=== PATIENT | male | born 1940 | race African-American/Black ===

== ENCOUNTER 2018-06-27 06:54 | Day surgery (SDC) | payer MEDICARE ==
[~2018-06-27 06:54] MED LIST: LACTATED RINGERS 1,000 ML IV SCH
[2018-06-27] MEDS ORDERED: VANCOMYCIN 750 MG in NACL 0.9% 250ML 250 ML IV STA (07:12)
[2018-06-27] MEDS ORDERED: PROVENTIL IH NR (07:27)
[2018-06-27] MEDS ORDERED: SUBLIMAZE IV PRN (08:01)
--- NOTE | 2018-06-27 08:01 | Anesthesia Consultation ---
Anesthesia Consult and Med Hx Date of service: 06/27/18 - Airway Anesthetic Teeth Evaluation: Poor ROM Head & Neck: Adequate Mental/Hyoid Distance: Adequate Mallampati Class: Class II Intubation Access Assessment: Probably Good (previous easy intubation with MAC 3, 7.5 ETT) - Pulmonary Exam CTA: Yes - Cardiac Exam Cardiac Exam: RRR - Pre-Operative Health Status ASA Pre-Surgery Classification: ASA3 Proposed Anesthetic Plan: General - Pulmonary Hx Smoking: Yes (FORMER QUIT 1989) Hx Asthma: Yes Home Oxygen Therapy: No - Cardiovascular System Hx Hypertension: Yes Hx Heart Attack/AMI: No - Central Nervous System Hx Seizures: No CVA: No - Gastrointestinal Hx Gastroesophageal Reflux Disease: No - Endocrine Hx Renal Disease: Yes (CKD2) Hx Liver Disease: No Hx Insulin Dependent Diabetes: Yes Hx Thyroid Disease: No - Other Systems Hx Obesity: No - Additional Comments Anesthesia Medical History Comments: No hx anesthetic complications. Chart review states home O2 use however discussion with patient (via sign language interpreter) suggests this is likely inhaler use for asthma rather than supplemental O2. SpO2 97% on room air this morning.
--- NOTE | 2018-06-27 08:01 | Anesthesia Day of Surgery ---
Anesthesia Day of Surgery - Day of Surgery Patient Examined: Yes Patient H&P Reviewed: Yes Patient is NPO: Yes
[2018-06-27] MEDS ORDERED: SUBLIMAZE ONE (08:43)
[2018-06-27] MEDS ORDERED: DIPRIVAN 10 MG/ML IV ONE (08:44)
[2018-06-27] MEDS ORDERED: VANCOMYCIN/NS 1 GM/250 ML 1 GM/250 ML BAG IV ONE (09:30)
[2018-06-27] MEDS ORDERED: ZEMURON IV ONE (10:03)
[2018-06-27] MEDS ORDERED: XYLOCAINE MPF 2% ONE (10:03)
[2018-06-27] MEDS ORDERED: DECADRON ONE (10:32)
[2018-06-27] MEDS ORDERED: XYLOCAINE CARDIAC IV ONE (10:32)
[2018-06-27] MEDS ORDERED: ZOFRAN ONE (10:32)
[2018-06-27] MEDS ORDERED: NACL 0.9% IR ONE (10:35)
[2018-06-27] MEDS ORDERED: MARCAINE-EPI/PF 0.25%-1:200,000 INFILTRATI ONE (10:35)
--- NOTE | 2018-06-27 10:39 | Discharge Summary ---
Short Stay Discharge Plan Activity: other (observe x 4 hrs then july d/c if stable and able to void. ice pack L groin x 6 hrs. scrotal support x 3 days. cl liq diet. advance to solid high fiber diet as daisy) Diet: other Wound: keep clean and dry (keep dressings dry x 5 day. no lifting over 5 lbs x 3 wks) Additional Instructions: surfak I po q am x days. aleve I po q 6-8 hrs prn for breakthrough pain Follow up with: NAIMA GUEVARA MD [Primary Care Provider] - 7 Days
--- NOTE | 2018-06-27 12:39 | Operative Report ---
PREOPERATIVE DIAGNOSIS: Left inguinal hernia. POSTOPERATIVE DIAGNOSES: Indirect left inguinal hernia as well as a direct inguinal hernia component (pantaloon hernia). PROCEDURE: Open left inguinal hernia repair with mesh. SURGEON: Juan Pagan MD ANESTHESIA: General. ESTIMATED BLOOD LOSS: Minimal. DRAINS: None. COMPLICATIONS: None. PROCEDURE IN DETAIL: The patient was taken to the operating room, prepped and draped in the usual sterile fashion. Incision was made using his landmarks in anterior superior iliac spine and the pubic tubercle. Dissection was carried down to the external oblique fascia. External oblique fascia was then transected to the external inguinal ring. The inguinal cord was then isolated with a Fleischmanns drain at the level of the pubic tubercle. Inspection of the cord revealed a fairly large indirect hernia sac. The sac was dissected free from the cord structures and high ligated with a 2-0 silk suture. The sac was then returned to the peritoneal cavity. Inspection of the floor also revealed a weekend floor. A preshaped keyhole Marlex mesh was then used to reconstruct the inguinal canal floor. The mesh was tacked to the pubic tubercle region with the tacker. Medially, the mesh was secured to the transversalis fascia. Laterally, the mesh was secured to the iliopubic tract. The area was then irrigated copiously and dried, checked for hemostasis and noted to be dry. The cord was then on laid over the mesh. All cord structures were inspected and noted to be intact including the ilioinguinal nerve. The external oblique fascia was closed over the cord with running 3-0 Vicryl suture. Subcutaneous tissues were irrigated and skin was closed with angel. A 0.5% Marcaine was infiltrated over the fascia, subcutaneous, and skin for postoperative pain relief. Ilioinguinal nerve block was also performed. The patient tolerated the procedure well and left OR in stable condition. JOB# [id number] CHEIKH/CARI
[2018-06-27 20:40] VITALS: BP 138/72
== END 2018-06-27 06:55 | disposition home or self-care (01) ==
LOC: OR 06:54
PROVIDERS: ATTEND Surgery
DX: K40.90 Unilateral inguinal hernia, without obstruction or gangrene, not specified as recurrent (principal); I12.0 Hypertensive chronic kidney disease with stage 5 chronic kidney disease or end stage renal disease; E11.22 Type 2 diabetes mellitus with diabetic chronic kidney disease; N18.2 Chronic kidney disease, stage 2 (mild); J44.9 Chronic obstructive pulmonary disease, unspecified; Z88.0 Allergy status to penicillin; Z79.84 Long term (current) use of oral hypoglycemic drugs; Z79.899 Other long term (current) drug therapy; Z87.891 Personal history of nicotine dependence; Z98.49 Cataract extraction status, unspecified eye; Z98.890 Other specified postprocedural states
CPT/HCPCS: 49505; 82962; 88302; C1781; J1100; J2001; J2405; J2704; J3010; J3370; J7050; J7120

== ENCOUNTER 2018-11-12 15:06 | Inpatient (IN) | payer MEDICARE ==
--- NOTE | 2018-11-12 15:34 | Event Note ---
ED Screening Note Date of service: 11/12/18 Time: 15:31 ED Screening Note: 77 y o male presents with sob and weakness x 2 days This initial assessment/diagnostic orders/clinical plan/treatment(s) is/are subject to change based on patients health status, clinical progression and re- assessment by fellow clinical providers in the ED. Further treatment and workup at subsequent clinical providers discretion. Patient/guardian urged not to elope from the ED as their condition may be serious if not clinically assessed and managed. Initial orders include:
[2018-11-12 16:33] LABS: Basophils % (Auto) 0.2 % (0.0-1.8); Hematocrit 43.3 % (35.5-45.6); Hemoglobin 14.2 gm/dl (11.8-15.2); Lymphocytes # (Auto) 0.8 K/mm3 (1.2-5.4); Lymphocytes % (Auto) 9.7 % (13.4-35.0); Mean Corpuscular HGB Conc 33 % (32-34); Monocytes # (Auto) 1.2 K/mm3 (0.0-0.8); Platelet Count 207 K/mm3 (140-440); Red Blood Count 6.29 M/mm3 (3.65-5.03); Red Cell Distribution Width 15.4 % (13.2-15.2)
[2018-11-12 16:35] LABS: Mean Corpuscular Volume 69 fl (84-94)
[2018-11-12 16:50] LABS: Alanine Aminotransferase 9 units/L (7-56); Albumin 4.2 g/dL (3.9-5); BUN/Creatinine Ratio 28; Blood Urea Nitrogen 31 mg/dL (9-20); Calcium 9.7 mg/dL (8.4-10.2); Hemolysis Index 1
--- NOTE | 2018-11-12 16:59 | XRay Report ---
CHEST 2 VIEWS INDICATION / CLINICAL INFORMATION: Dyspnea. COMPARISON: None available. FINDINGS: SUPPORT DEVICES: None. HEART / MEDIASTINUM: No significant abnormality. LUNGS / PLEURA: There is patchy predominantly peripheral airspace opacity in the right upper lobe. Th ere is mild prominence of the right hilum. The left lung is clear. No pleural effusion. No pneumothor ax. ADDITIONAL FINDINGS: No significant additional findings. IMPRESSION: 1. Patchy predominantly peripheral airspace opacities in the right upper lobe and mild prominence of the right hilum. While this may reflect an infectious etiology, recommend chest CT to exclude underly ing mass. Signer Name: Danielle De Oliveira MD Signed: 11/12/2018 4:55 PM Workstation Name: [id number]
[2018-11-12] MEDS ORDERED: NACL 0.9% 1000 ML IV ONE (21:25)
[2018-11-12] MEDS ORDERED: ZOFRAN IV ONE (21:27)
[2018-11-12] MEDS ORDERED: PEPCID IV ONE (21:27)
[2018-11-12] MEDS ORDERED: LEVAQUIN 750MG/150ML 750 MG/150 ML BAG IV SCH (21:28)
--- NOTE | 2018-11-12 21:35 | Emergency Department Report ---
ED General Adult HPI - General Chief complaint: Dyspnea/Respdistress Stated complaint: VOMITING/ROBIN/ASTHMA Time Seen by Provider: 11/12/18 15:30 Source: family Mode of arrival: Wheelchair Limitations: Language Barrier - History of Present Illness Initial comments: Patient is a 77-year-old [place] gentleman who has a history of COPD and uses oxygen at home diabetes and hypertension who is presenting with nausea vomiting shortness of breath. Patient's family member who is his environmental services coordinator states that for the past 3-4 days the patient has been feeling weak fatigue with a nonproductive cough. His customer professional placed him on Levaquin 3 days ago noel rachel the patient is unable to keep it down. Patient states he's had nausea vomiting anytime he tries to eat or take his medications. Patient has shortness of breath and generalized fatigue. Patient has body aches and subjective fevers. - Related Data Home Medications Medication Instructions Recorded Confirmed Last Taken AtorvaSTATin [Lipitor] 10 mg PO QHS 01/31/18 06/27/18 06/26/18 Losartan Potassium [Cozaar] 50 mg PO DAILY 01/31/18 06/27/18 06/26/18 ALBUTEROL Inhaler (OR & NICU) 2 puff IH Q6H PRN 06/25/18 06/27/18 06/26/18 [ProAir HFA Inhaler] Dorzolamide HCl 1 drop OP BID 06/25/18 06/27/18 06/26/18 Fluticasone/Vilanterol [Breo 1 puff IH QDAY 06/25/18 06/27/18 06/26/18 Ellipta 100-25 Mcg INH] Umeclidinium [place] [Incruse 1 puff IH QDAY 06/25/18 06/27/18 06/26/18 Ellipta] metFORMIN [Glucophage] 850 mg PO BID 06/25/18 06/27/18 06/26/18 Previous Rx's Medication Instructions Recorded Last Taken Type HYDROcodone/APAP 5-325 [[place] 1 - 2 each PO Q4HR PRN #30 tablet 06/27/18 Unknown Rx 5/325] Allergies Allergy/AdvReac Type Severity Reaction Status Date / Time Penicillins Allergy Unknown-over Verified 06/25/18 17:28 45 years ago ED Review of Systems ROS: Stated complaint: VOMITING/ROBIN/ASTHMA Other details as noted in HPI Comment: All other systems reviewed and negative ED Past Medical Hx - Past Medical History Hx Hypertension: Yes Hx Heart Attack/AMI: No Hx Diabetes: Yes Hx Liver Disease: No Hx Renal Disease: Yes (CKD2) Hx Seizures: No Hx Asthma: Yes Hx COPD: Yes (USES O2) - Social History Smoking Status: Never Smoker Substance Use Type: None - Medications Home Medications: Home Medications Medication Instructions Recorded Confirmed Last Taken Type AtorvaSTATin [Lipitor] 10 mg PO QHS 01/31/18 06/27/18 06/26/18 History Losartan Potassium [Cozaar] 50 mg PO DAILY 01/31/18 06/27/18 06/26/18 History ALBUTEROL Inhaler (OR & NICU) 2 puff IH Q6H PRN 06/25/18 06/27/18 06/26/18 History [ProAir HFA Inhaler] Dorzolamide HCl 1 drop OP BID 06/25/18 06/27/18 06/26/18 History Fluticasone/Vilanterol [Breo 1 puff IH QDAY 06/25/18 06/27/18 06/26/18 History Ellipta 100-25 Mcg INH] Umeclidinium [place] [Incruse 1 puff IH QDAY 06/25/18 06/27/18 06/26/18 History Ellipta] metFORMIN [Glucophage] 850 mg PO BID 06/25/18 06/27/18 06/26/18 History HYDROcodone/APAP 5-325 [[place] 1 - 2 each PO Q4HR PRN #30 tablet 06/27/18 Unknown Rx 5/325] ED Physical Exam - General Limitations: Language Barrier General appearance: alert, in no apparent distress - Head Head exam: Present: atraumatic, normocephalic - Eye Eye exam: Present: normal appearance, PERRL, EOMI - ENT ENT exam: Present: mucous membranes moist - Neck Neck exam: Present: normal inspection - Respiratory Respiratory exam: Present: normal lung sounds bilaterally, rhonchi. Absent: respiratory distress, wheezes, rales, accessory muscle use - Cardiovascular Cardiovascular Exam: Present: regular rate, normal rhythm, normal heart sounds. Absent: systolic murmur, diastolic murmur, rubs, gallop - GI/Abdominal GI/Abdominal exam: Present: soft, normal bowel sounds. Absent: distended, tenderness, guarding, rebound, rigid - Rectal Rectal exam: Present: deferred - Extremities Exam Extremities exam: Present: normal inspection - Back Exam Back exam: Present: normal inspection - Neurological Exam Neurological exam: Present: alert, oriented X3 - Psychiatric Psychiatric exam: Present: normal affect, normal mood - Skin Skin exam: Present: warm, dry, intact, normal color. Absent: rash ED Course Vital Signs 11/12/18 15:30 Temperature 98.2 F Pulse Rate 95 H Respiratory 24 Rate Blood Pressure 139/83 O2 Sat by Pulse 94 Oximetry ED Medical Decision Making - Lab Data Result diagrams: 11/12/18 16:07 11/12/18 16:07 Lab Results 11/12/18 11/12/18 Range/Units 16:07 16:07 WBC 8.3 (4.5-11.0) K/mm3 RBC 6.29 H (3.65-5.03) M/mm3 Hgb 14.2 (11.8-15.2) gm/dl Hct 43.3 (35.5-45.6) % MCV 69 L (84-94) fl MCH 23 L (28-32) pg MCHC 33 (32-34) % RDW 15.4 H (13.2-15.2) % Plt Count 207 (140-440) K/mm3 Lymph % (Auto) 9.7 L (13.4-35.0) % [place] % (Auto) 14.0 H (0.0-7.3) % Eos % (Auto) 0.0 (0.0-4.3) % Baso % (Auto) 0.2 (0.0-1.8) % Lymph # 0.8 L (1.2-5.4) K/mm3 [place] # 1.2 H (0.0-0.8) K/mm3 Eos # 0.0 (0.0-0.4) K/mm3 Baso # 0.0 (0.0-0.1) K/mm3 Seg Neutrophils % 76.1 H (40.0-70.0) % Seg Neutrophils # 6.3 (1.8-7.7) K/mm3 Sodium 135 L (137-145) mmol/L Potassium 4.3 (3.6-5.0) mmol/L Chloride 91.3 L (98-107) mmol/L Carbon Dioxide 29 (22-30) mmol/L Anion Gap 19 mmol/L BUN 31 H (9-20) mg/dL Creatinine 1.1 (0.8-1.5) mg/dL Estimated GFR > 60 ml/min BUN/Creatinine Ratio 28 % Glucose 228 H (75-100) mg/dL Calcium 9.7 (8.4-10.2) mg/dL Total Bilirubin 0.70 (0.1-1.2) mg/dL AST 14 (5-40) units/L ALT 9 (7-56) units/L Alkaline Phosphatase 71 (35-129) units/L Total Protein 8.2 (6.3-8.2) g/dL Albumin 4.2 (3.9-5) g/dL Albumin/Globulin Ratio 1.1 % Lipase 11 L (13-60) units/L - Radiology Data [facility] [address] [place] [address] XRay Report Signed Patient: JUAN ALBERTO DELONG MR#: [id number] 3 : 1940 Acct:[id number] Age/Sex: 77 / M ADM Date: 11/12/18 Loc: ED Attending Dr: Ordering Physician: BETH GALVEZ MD Date of Service: 11/12/18 Procedure(s): XR chest routine 2V Accession Number(s): [id number] cc: ED MD LENNY Fluoro Time In Minutes: CHEST 2 VIEWS INDICATION / CLINICAL INFORMATION: Dyspnea. COMPARISON: None available. FINDINGS: SUPPORT DEVICES: None. HEART / MEDIASTINUM: No significant abnormality. LUNGS / PLEURA: There is patchy predominantly peripheral airspace opacity in the right upper lobe. There is mild prominence of the right hilum. The left lung is clear. No pleural effusion. No p neumothorax. ADDITIONAL FINDINGS: No significant additional findings. IMPRESSION: 1. Patchy predominantly peripheral airspace opacities in the right upper lobe and mild prominence of the right hilum. While this may reflect an infectious etiology, r ecommend chest CT to exclude underlying mass. Signer Name: Danielle De Oliveira MD Signed: 11/12/2018 4:55 PM Workstation Name: [id number] Transcribed By: [facility] Dictated By: Danielle De Oliveira MD Electronically Authenticated By: Danielle De Oliveira MD Signed Date/Time: 11/12/18 7870 - Medical Decision Making Patient's physician believes he may have bronchitis which is what prompted him to be started on Levaquin. Patient is not tolerating this medication at home. Patient does have a pneumonia on x-ray. Patient to be admitted to the hospitalist service at this time. Patient does have some tachycardia and tachypnea and sepsis orders have been ordered at this time. Patient will be bolused fluids. Patient states he has no abdominal pain this time there is been nothing by mouth for several hours. Patient given some Zofran to see if the patient will then be able to tolerate by mouth. Critical care attestation.: If time is entered above; I have spent that time in minutes in the direct care of this critically ill patient, excluding procedure time. ED Disposition Clinical Impression: Failure of outpatient treatment Pneumonia Qualifiers: Pneumonia type: due to unspecified organism Laterality: right Lung location: upper lobe of lung Qualified Code(s): J18.1 - Lobar pneumonia, unspecified organism Nausea & vomiting Qualifiers: Vomiting type: unspecified Vomiting Intractability: non-intractable Qualified Code(s): R11.2 - Nausea with vomiting, unspecified Disposition: DC-09 OP ADMIT IP TO THIS HOSP Is pt being admited?: Yes Does the pt Need Aspirin: No Condition: Stable Instructions: Bacterial Pneumonia (ED) Referrals: NAIMA GUEVARA MD [Primary Care Provider] - 3-5 Days Time of Disposition: 21:36
--- NOTE | 2018-11-12 21:56 | History and Physical Report ---
History of Present Illness Date of examination: 11/12/18 History of present illness: 77-year-old man with a history of hypertension, diabetes, COPD, seen emergency room because he saw his earth burner on Dr. Pierce he will started on Levaquin for infection, probably lung. Since he started Levaquin cough for the last 3 days he has been having nausea vomiting, generalized weakness and decreased appetite. He stated he has not eaten in 2 days. Complains of a cough productive of white phlegm, no shortness of breath eview Of Systems: Constitutional: no weight loss, fever, chills Ears, eyes, nose, mouth and throat: no nasal congestion, no nasal discharge, no sinus pressure, blurry vision, diplopia Neck: No neck pain or rigidity. Cardiovascular: No palpitations, chest pain Respiratory: No shortness of breath, cough Gastrointestinal: No hematochezia, abdominal pain Genitourinary : no dysuria, frequency , hematuria Musculoskeletal: no muscle ache , joint pain Integumentary: no rash, no pruritis Neurological: no parathesias, focal weakness Endocrine: no cold or heat intolerance, no polyuria or polydipsia Hematologic/Lymphatic: no easy bruising, no easy bleeding, no gland swelling Allergic/Immunologic: no urticaria, no angioedema. PAST MEDICAL HISTORY:hypertension, diabetes, COPD PAST SURGICAL HISTORY:hernia FAMILY HISTORY:hypertension, diabetes SOCIAL HISTORY: Denies tobacco, drugs, alcohol Medications and Allergies Allergies Allergy/AdvReac Type Severity Reaction Status Date / Time Penicillins Allergy Unknown-over Verified 06/25/18 17:28 45 years ago Home Medications Medication Instructions Recorded Confirmed Last Taken Type AtorvaSTATin [Lipitor] 10 mg PO QHS 01/31/18 11/12/18 06/26/18 History Losartan Potassium [Cozaar] 50 mg PO DAILY 01/31/18 11/12/18 06/26/18 History Umeclidinium [place] [Incruse 1 puff IH QDAY 06/25/18 11/13/18 06/26/18 History Ellipta] metFORMIN [Glucophage] 850 mg PO BID 06/25/18 11/12/18 06/26/18 History Fluticasone/Vilanterol [Breo 1 each IH DAILY 11/12/18 11/13/18 Unknown History Ellipta 100-25 Mcg INH] Active Meds: Active Medications Levofloxacin/Dextrose (Levaquin 750mg/150ml) 750 mg in 150 mls @ 100 mls/hr IV Q24HR BRYANT; Protocol Last Admin: 11/12/18 21:52 Dose: 100 mls/hr Documented by: Sodium Chloride (Nacl 0.9% 1000 Ml) 1,000 mls @ 75 mls/hr IV DIRECT BRYANT Exam - Constitutional Vitals: Temp Pulse Resp BP Pulse Ox 98.1 F 85 20 127/78 94 11/12/18 21:37 11/12/18 21:37 11/12/18 21:37 11/12/18 21:37 11/12/18 21:37 Results - Labs CBC & Chem 7: 11/20/18 04:19 11/20/18 04:19 Labs: Abnormal lab results 11/12/18 11/12/18 11/12/18 Range/Units 16:07 16:07 21:30 RBC 6.29 H (3.65-5.03) M/mm3 MCV 69 L (84-94) fl MCH 23 L (28-32) pg RDW 15.4 H (13.2-15.2) % Lymph % (Auto) 9.7 L (13.4-35.0) % [place] % (Auto) 14.0 H (0.0-7.3) % Lymph # 0.8 L (1.2-5.4) K/mm3 [place] # 1.2 H (0.0-0.8) K/mm3 Seg Neutrophils % 76.1 H (40.0-70.0) % Sodium 135 L (137-145) mmol/L Chloride 91.3 L (98-107) mmol/L BUN 31 H (9-20) mg/dL Glucose 228 H (75-100) mg/dL POC Glucose 211 H (70-105) Lipase 11 L (13-60) units/L Assessment and Plan Assessment Abnormal x-ray finding, concerning for malignancy Upper lobe pneumonia Hypertension Diabetes COPD Plan Status post coronary emergency room, discontinue Levaquin Obtain CAT scan of the chest, start iv fluid check fingersticks initiate insulin sliding scale Continue appropriate outpatient medications DVT prophylaxis Addendum CT chest is negative for malignancy or pneumonia, D/C A antibiotic Discontinue contact precaution CT showed possible bowel obstruction, obtain CT abdomen and pelvis
[2018-11-12] MEDS ORDERED: SODIUM CHLORIDE FLUSH SYRINGE 10 ML IV PRN (21:57)
[2018-11-12] MEDS ORDERED: TYLENOL PO PRN (21:57)
[2018-11-12] MEDS ORDERED: ZOFRAN IV PRN (21:57)
[2018-11-12] MEDS ORDERED: NACL 0.9% 1000 ML 1,000 ML IV SCH (22:00)
[2018-11-12] MEDS: SODIUM CHLORIDE FLUSH SYRINGE 10 ML IV SCH (22:30)
--- NOTE | 2018-11-12 23:39 | Cat Scan Report ---
CT chest w con INDICATION: ab cxr. TECHNIQUE: All CT scans at this location are performed using the following dose modulation technique: Automated exposure control. CONTRAST: Omnipaque 300, 100 cc IV injection. COMPARISON: Chest x-ray same day. PET/CT 07/07/2010. FINDINGS: Changes at the right upper lobe extending of the right hilum are calcified as are less prom inent similar changes within the inferior aspect of the left lower lobe. There is mild pleural base d ensity at the right lower lobe posteriorly. This is favored to be scarring. Underlying emphysema suzie ins greatest at the right upper lobe. Negative for mediastinal mass or adenopathy. Imaging of the upper abdomen demonstrates calcified gallstones, renal cysts left greater than right a nd distended small bowel. IMPRESSION: 1. Lung changes described by chest x-ray are chronic and benign. 2. Underlying emphysema. 3. Mild pleural-based parenchymal change right upper lobe posteriorly is favored to be chronic or inf lammatory. 4. Calcified gallstones. 5. Possible small bowel obstruction. Signer Name: Nnamdi Resendiz MD Signed: 11/12/2018 11:35 PM Workstation Name: [id number]
[2018-11-13] MEDS ORDERED: D50W (25GM) Syringe IV PRN (00:31)
[2018-11-13] MEDS: DUONEB *Not for PRN Use IH SCH ×4 (02:08→20:37)
--- NOTE | 2018-11-13 02:34 | Cat Scan Report ---
CT abdomen pelvis wo con INDICATION: possible sbo. TECHNIQUE: All CT scans at this location are performed using the following dose modulation technique: Automated exposure control. CONTRAST: None. COMPARISON: Chest x-ray earlier the same day. CT abdomen: The parenchymal organs are unremarkable in appearance other than benign-appearing bilater al renal cysts. Negative for abdominal mass, fluid or inflammation. Calcified gallstones are noted. Moderate distention and fluid is seen at the small bowel which is not thickened. The aorta contains a therosclerotic calcification. CT PELVIS: Distended small bowel is seen extending the level of an incarcerated right inguinal hernia . Negative for pelvic mass, fluid or localized inflammation. The colon is decompressed and contains n oninflamed diverticula. Residual contrast material is seen from an earlier CT. IMPRESSION: 1. Incarcerated right inguinal hernia resulting in high-grade distal small bowel obstruction. 2. Noninflamed colonic diverticulosis. 3. Calcified gallstones. Signer Name: Nnamdi Resendiz MD Signed: 11/13/2018 2:29 AM Workstation Name: [email or web address]
[2018-11-13 05:02] LABS: Hematocrit 38.8 % (35.5-45.6); Hemoglobin 12.4 gm/dl (11.8-15.2); Mean Corpuscular HGB Conc 32 % (32-34); Platelet Count 160 K/mm3 (140-440); Red Blood Count 5.68 M/mm3 (3.65-5.03); Red Cell Distribution Width 14.9 % (13.2-15.2)
[2018-11-13 05:13] LABS: BUN/Creatinine Ratio 30; Blood Urea Nitrogen 27 mg/dL (9-20); Calcium 8.5 mg/dL (8.4-10.2); Hemolysis Index 3
[2018-11-13 05:53] LABS: Mean Corpuscular Volume 68 fl (84-94)
[2018-11-13 08:52] LABS: Eosinophils % (Manual) 0 % (0.0-4.3); Total Cells Counted 100
[2018-11-13 08:53] LABS: Platelet Estimate Consistent w Auto; Target Cells Rare
[2018-11-13] MEDS ORDERED: ZITHROMAX 500 MG in NACL 0.9% 250ML 250 ML IV SCH (10:00)
[2018-11-13] MEDS: D5NS 1,000 ML IV SCH (11:26)
[2018-11-13] MEDS ORDERED: ATIVAN IV ONE (11:27)
[2018-11-13] MEDS ORDERED: MORPHINE IV ONE (11:27)
[2018-11-13] MEDS: SODIUM CHLORIDE FLUSH SYRINGE 10 ML IV SCH (11:28)
[2018-11-13] MEDS ORDERED: ROCEPHIN/NS 1 GM/50 ML 1 GM/50 ML BAG IV SCH (12:00)
[2018-11-13] MEDS: HumaLOG SUB-Q SCH ×2 (12:30→16:30)
--- NOTE | 2018-11-13 14:12 | Event Note ---
Date: 11/13/18 called for SBO consult. Pt with an incarcerated RIH. Pt had a recent open repair by Dr. Pagan last Nov. Full history obtained. Discussed case with Dr. Pagan. Will try to reduce hernia and have patient f/u with him in the office. Sedated patient with Ativan and then morphine. I was able to only partially reduce it. Pt tolerated the procedure well. Pt reports that he was feeling better. As the hernia is still incarcerated, I think he requires an operative intervention prior to discharge. Discussed again with Dr. Pagan who will see the patient today. Pt is stable and does not require urgent surgery at this moment. Please call with questions. Will turn over consult to Dr. Pagan.
--- NOTE | 2018-11-13 14:55 | Progress Note ---
Assessment and Plan Incarcerated right hernia with high-grade small bowel obstruction - start iv fluid, keep NPO - Dr. Graham tried to reduce the hernia at bedside and the hernia was only partially reduced -reconsult Dr. Pagan - f/u recommendation Upper lobe pneumonia, being treated as outpt - cont rocephin, Hypertension, stable Diabetes type 2 - check fingersticks initiate insulin sliding scale COPD, stable placed on nebs as needed - Severe PCM - dietary consult - DVT prophylaxis, SCD Brief history: 77-year-old man with a history of hypertension, diabetes, COPD, who saw his immigration lawyer on Dr. Pierce started on Levaquin for PNA. Since he started Levaquin for the last 3 days per the pt he has been having nausea vomiting, generalized weakness and decreased appetite. He stated he has not eaten in [address] abdomen/pelvis is concerning for high grade obstruction, GS consulted. CT abdomen/pelvis w contrast: 1. Incarcerated right inguinal hernia resulting in high-grade distal small bowel obstruction. 2. Noninflamed colonic diverticulosis. 3. Calcified gallstones. Subjective Date of service: 11/13/18 Interval history: Patient seen and examined c/o abdominal pain has visible right inguinal hernia had surgery recently, was doing well post-operatively - symptoms started [address] Graham was at bedside, updated family Objective - Constitutional Vitals: Vital Signs - 12hr 11/13/18 11/13/18 11/13/18 05:00 06:20 09:02 Temperature 98 F 98.2 F 98.4 F Pulse Rate 80 89 Pulse Rate [ Anterior] Respiratory 21 20 19 Rate Respiratory Rate [Anterior] Blood Pressure 138/73 Blood Pressure 131/74 138/63 [Right] O2 Sat by Pulse 94 94 Oximetry 11/13/18 11/13/18 11/13/18 09:34 11:56 13:03 Temperature Pulse Rate 87 Pulse Rate [ 81 Anterior] Respiratory 20 Rate Respiratory 18 Rate [Anterior] Blood Pressure Blood Pressure [Right] O2 Sat by Pulse 95 Oximetry 11/13/18 13:05 Temperature 97.9 F Pulse Rate Pulse Rate [ Anterior] Respiratory 18 Rate Respiratory Rate [Anterior] Blood Pressure 118/67 Blood Pressure [Right] O2 Sat by Pulse Oximetry General appearance: Present: mild distress, other (malnourished) - EENT Eyes: PERRL, EOM intact ENT: hearing intact, clear oral mucosa Ears: bilateral: normal - Neck Neck: supple, normal ROM - Respiratory Respiratory effort: normal Respiratory: bilateral: CTA - Cardiovascular Rhythm: regular Heart Sounds: Present: S1 & S2. Absent: gallop, rub Extremities: pulses intact, No edema, normal color, Full ROM - Gastrointestinal General gastrointestinal: Present: soft, hypoactive bowel sounds Localized gastrointestinal: tender: RLQ, guarding: RLQ - Integumentary Integumentary: clear, warm, dry - Musculoskeletal Musculoskeletal: 1, strength equal bilaterally - Neurologic Neurologic: moves all extremities - Psychiatric Psychiatric: memory intact, appropriate mood/affect, intact judgment & insight - Labs CBC & Chem 7: 11/13/18 04:51 11/13/18 04:51 Labs: Abnormal lab results 11/12/18 11/12/18 11/12/18 Range/Units 16:07 16:07 21:29 RBC 6.29 H (3.65-5.03) M/mm3 MCV 69 L (84-94) fl MCH 23 L (28-32) pg RDW 15.4 H (13.2-15.2) % Lymph % (Auto) 9.7 L (13.4-35.0) % [place] % (Auto) 14.0 H (0.0-7.3) % Lymph # 0.8 L (1.2-5.4) K/mm3 [place] # 1.2 H (0.0-0.8) K/mm3 Seg Neutrophils % 76.1 H (40.0-70.0) % Sodium 135 L (137-145) mmol/L Chloride 91.3 L (98-107) mmol/L BUN 31 H (9-20) mg/dL Glucose 228 H (75-100) mg/dL POC Glucose (70-105) Lactic Acid 3.10 H* (0.7-2.0) mmol/L Lipase 11 L (13-60) units/L 11/12/18 11/13/18 11/13/18 Range/Units 21:30 04:51 04:51 RBC 5.68 H (3.65-5.03) M/mm3 MCV 68 L (84-94) fl MCH 22 L (28-32) pg RDW (13.2-15.2) % Lymph % (Auto) (13.4-35.0) % [place] % (Auto) (0.0-7.3) % Lymph # (1.2-5.4) K/mm3 [place] # (0.0-0.8) K/mm3 Seg Neutrophils % (40.0-70.0) % Sodium 136 L (137-145) mmol/L Chloride 97.5 L (98-107) mmol/L BUN 27 H (9-20) mg/dL Glucose 164 H (75-100) mg/dL POC Glucose 211 H (70-105) Lactic Acid (0.7-2.0) mmol/L Lipase (13-60) units/L 11/13/18 11/13/18 11/13/18 Range/Units 09:09 09:31 13:10 RBC (3.65-5.03) M/mm3 MCV (84-94) fl MCH (28-32) pg RDW (13.2-15.2) % Lymph % (Auto) (13.4-35.0) % [place] % (Auto) (0.0-7.3) % Lymph # (1.2-5.4) K/mm3 [place] # (0.0-0.8) K/mm3 Seg Neutrophils % (40.0-70.0) % Sodium (137-145) mmol/L Chloride (98-107) mmol/L BUN (9-20) mg/dL Glucose (75-100) mg/dL POC Glucose 169 H 224 H (70-105) Lactic Acid 2.10 H* (0.7-2.0) mmol/L Lipase (13-60) units/L
--- NOTE | 2018-11-13 17:51 | Progress Note ---
Assessment and Plan Full consult dictated: 77 y/o male known to me. s/p open RIH repair last Nov. presents now with N&V, abd distention. incarcerated recurrent RIH. CT - high grade obstruction. imp: as above will proceed with emergency expl lap, possible bowel resection, possible RIH repair High surgical risk. procedure, indications and complications have been reviewed with pt and family. will proceed. will probably need ICU transfer post operatively Date of examination: 11/12/18 History of present illness: 77-year-old man with a history of hypertension, diabetes, COPD, seen emergency room because he saw his hospital account liaison on Dr. Pierce he will started on Levaquin for infection, probably lung. Since he started Levaquin cough for the last 3 days he has been having nausea vomiting, generalized weakness and decreased appetite. He stated he has not eaten in 2 days. Complains of a cough productive of white phlegm, no shortness of breath eview Of Systems: Constitutional: no weight loss, fever, chills Ears, eyes, nose, mouth and throat: no nasal congestion, no nasal discharge, no sinus pressure, blurry vision, diplopia Neck: No neck pain or rigidity. Cardiovascular: No palpitations, chest pain Respiratory: No shortness of breath, cough Gastrointestinal: No hematochezia, abdominal pain Genitourinary : no dysuria, frequency , hematuria Musculoskeletal: no muscle ache , joint pain Integumentary: no rash, no pruritis Neurological: no parathesias, focal weakness Endocrine: no cold or heat intolerance, no polyuria or polydipsia Hematologic/Lymphatic: no easy bruising, no easy bleeding, no gland swelling Allergic/Immunologic: no urticaria, no angioedema. PAST MEDICAL HISTORY:hypertension, diabetes, COPD PAST SURGICAL HISTORY:hernia FAMILY HISTORY:hypertension, diabetes SOCIAL HISTORY: Denies tobacco, drugs, alcohol Objective Vital Signs - 12hr 11/13/18 11/13/18 11/13/18 06:20 09:02 09:34 Temperature 98.2 F 98.4 F Pulse Rate 89 Pulse Rate [ 81 Anterior] Respiratory 20 19 Rate Respiratory 18 Rate [Anterior] Blood Pressure 138/73 Blood Pressure 138/63 [Right] O2 Sat by Pulse 94 Oximetry 11/13/18 11/13/18 11/13/18 11:56 13:03 13:05 Temperature 97.9 F Pulse Rate 87 Pulse Rate [ Anterior] Respiratory 20 18 Rate Respiratory Rate [Anterior] Blood Pressure 118/67 Blood Pressure [Right] O2 Sat by Pulse 95 Oximetry 11/13/18 15:19 Temperature Pulse Rate Pulse Rate [ 83 Anterior] Respiratory Rate Respiratory 20 Rate [Anterior] Blood Pressure Blood Pressure [Right] O2 Sat by Pulse Oximetry - Labs 11/13/18 04:51 11/13/18 04:51 Diabetes panel 11/13/18 Range/Units 04:51 Sodium 136 L (137-145) mmol/L Potassium 4.0 (3.6-5.0) mmol/L Chloride 97.5 L (98-107) mmol/L Carbon Dioxide 27 (22-30) mmol/L BUN 27 H (9-20) mg/dL Creatinine 0.9 (0.8-1.5) mg/dL Glucose 164 H (75-100) mg/dL Calcium 8.5 (8.4-10.2) mg/dL Calcium panel 11/13/18 Range/Units 04:51 Calcium 8.5 (8.4-10.2) mg/dL Pituitary panel 11/13/18 Range/Units 04:51 Sodium 136 L (137-145) mmol/L Potassium 4.0 (3.6-5.0) mmol/L Chloride 97.5 L (98-107) mmol/L Carbon Dioxide 27 (22-30) mmol/L BUN 27 H (9-20) mg/dL Creatinine 0.9 (0.8-1.5) mg/dL Glucose 164 H (75-100) mg/dL Calcium 8.5 (8.4-10.2) mg/dL Adrenal panel 11/13/18 Range/Units 04:51 Sodium 136 L (137-145) mmol/L Potassium 4.0 (3.6-5.0) mmol/L Chloride 97.5 L (98-107) mmol/L Carbon Dioxide 27 (22-30) mmol/L BUN 27 H (9-20) mg/dL Creatinine 0.9 (0.8-1.5) mg/dL Glucose 164 H (75-100) mg/dL Calcium 8.5 (8.4-10.2) mg/dL
--- NOTE | 2018-11-13 19:42 | Anesthesia Day of Surgery ---
Anesthesia Day of Surgery - Day of Surgery Patient Examined: Yes Patient H&P Reviewed: Yes Patient is NPO: Yes
--- NOTE | 2018-11-13 19:45 | Anesthesia Consultation ---
Anesthesia Consult and Med Hx Date of service: 11/13/18 - Airway Anesthetic Teeth Evaluation: Poor, Chipped (LOOSE) ROM Head & Neck: Adequate Mental/Hyoid Distance: Adequate Mallampati Class: Class II Intubation Access Assessment: Good - Pre-Operative Health Status ASA Pre-Surgery Classification: ASA3, Emergency Proposed Anesthetic Plan: General - Pulmonary Hx Smoking: Yes (FORMER QUIT 1989) Hx Asthma: Yes SOB: Yes COPD: Yes (USES O2) Home Oxygen Therapy: Yes Hx Pneumonia: Yes (CURRENT) - Cardiovascular System Hx Hypertension: Yes Hx Heart Attack/AMI: No (NST 2018 negative per family) - Central Nervous System Hx Seizures: No CVA: No - Gastrointestinal Hx Gastroesophageal Reflux Disease: No - Endocrine Hx Renal Disease: Yes (CKD2) Hx Liver Disease: No Hx Insulin Dependent Diabetes: Yes Hx Thyroid Disease: No - Other Systems Hx Obesity: No - Additional Comments Anesthesia Medical History Comments: Incarcerated right hernia with high-grade small bowel obstruction. Upper lobe pneumonia, being treated as outpt. - cont rocephin,. Hypertension, stable. Diabetes type 2. - check fingersticks initiate insulin sliding scale. COPD, stable placed on nebs as needed. -. Severe PCM - dietary consult
[2018-11-13] MEDS: FLAGYL 500 MG/100 ML 500 MG/100 ML BAG IV SCH (20:36)
[2018-11-13] MEDS ORDERED: LACTATED RINGERS 1,000 ML ONE (20:56)
[2018-11-13] MEDS ORDERED: ZEMURON IV ONE (21:07)
[2018-11-13] MEDS ORDERED: BLOXIVERZ ONE (21:07)
[2018-11-13] MEDS ORDERED: ROBINUL ONE (21:07)
[2018-11-13] MEDS ORDERED: DECADRON ONE (21:07)
[2018-11-13] MEDS ORDERED: ZOFRAN ONE (21:07)
[2018-11-13] MEDS ORDERED: XYLOCAINE MPF 2% ONE (21:07)
[2018-11-13] MEDS ORDERED: SUBLIMAZE ONE ×3 (21:07→22:25)
[2018-11-13] MEDS ORDERED: DIPRIVAN 10 MG/ML IV ONE (21:07)
[2018-11-13] MEDS ORDERED: BRIDION IV ONE (22:50)
[2018-11-13] MEDS ORDERED: NACL 0.9% IR ONE (23:00)
[2018-11-13] MEDS ORDERED: MORPHINE IV PRN (23:19)
[2018-11-13] MEDS ORDERED: PROVENTIL IH ONE (23:34)
[2018-11-13] MEDS ORDERED: NORMODYNE IV ONE (23:44)
[2018-11-13] MEDS ORDERED: PEPCID IV SCH (23:45)
[2018-11-13] MEDS ORDERED: SUBLIMAZE IV PRN (23:53)
[2018-11-13] MEDS ORDERED: ZOFRAN IV PRN (23:53)
[2018-11-13] MEDS ORDERED: DILAUDID IV PRN (23:53)
--- NOTE | 2018-11-13 23:58 | Operative Report ---
PREOPERATIVE DIAGNOSIS: Small-bowel obstruction secondary to right inguinal incarcerated hernia. POSTOPERATIVE DIAGNOSIS: Small-bowel obstruction secondary to right inguinal incarcerated hernia. PROCEDURE: Emergency exploratory laparotomy, reduction of incarcerated right inguinal hernia and right inguinal hernia repair. SURGEON: Juan Pagan MD ANESTHESIA: General. ESTIMATED BLOOD LOSS: Minimal. DRAINS: None. COMPLICATIONS: None. DESCRIPTION OF PROCEDURE: The patient was taken to the operating room, prepped and draped in usual sterile fashion. Midline incision was made and abdomen entered. Upon entrance into the abdomen, small bowel was noted to be grossly dilated. A dilated bowel was followed down to the right groin where an incarcerated hernia was indeed confirmed. A slow dissection was carried out at the area of the hernia neck site. A right angle was used to carefully separate the neck from the incarcerated bowel. Metzenbaum scissors were used to open the incarcerated area and the bowel was then reduced. The bowel was inspected and noted to be slightly dusky, but appeared viable. The bowel was then wrapped with a warm saline and isolated. Attention was then focused to the hernia defect site. The patient was placed in a steep Trendelenburg left lateral decubitus position. The fascial defect was closed with interrupted #1 Surgilon sutures. The peritoneum was then also closed with interrupted 0 Vicryl suture. The entire area was then inspected and noted to be well repaired. No other fascial defects or weaknesses noted. The wet laps were then removed from the knuckle site of incarceration and carefully inspected. The color had returned to the bowel and good peristalsis was noted. No other defects or small bowel normally seen. The entire small bowel was run and everything else was essentially normal. The patient was then placed in a flat supine position. The entire abdomen was irrigated copiously and dried. I checked for hemostasis and noted to be dry. The bowel in question once again inspected and noted to have pink serosa and good peristalsis. The fascia was then closed with interrupted #1 Vicryl suture. A few retention sutures were also placed because of abdominal distention secondary to the dilated small bowel. Subcutaneous tissues irrigated and skin closed with angel. The patient tolerated the procedure well and left the OR in stable condition. JOB# [id number] FP/NTS
[2018-11-14] MEDS ORDERED: DIPRIVAN 10 MG/ML IV ONE (00:03)
[2018-11-14] MEDS ORDERED: PROVENTIL IH ONE (00:29)
--- NOTE | 2018-11-14 00:51 | XRay Report ---
ABDOMEN 1 VIEW(S) INDICATION / CLINICAL INFORMATION: ng tube placement. COMPARISON: None available. FINDINGS: TUBES / LINES: NG tube tip at the proximal stomach. Advance 5 cm. BOWEL GAS PATTERN: Moderately distended small bowel diffusely typical of ileus. ADDITIONAL FINDINGS: No significant additional findings. Scratch that. Signer Name: Nnamdi Resendiz MD Signed: 11/14/2018 12:47 AM Workstation Name: [id number]
[2018-11-14] MEDS ORDERED: NACL 0.9% 1000 ML 1,000 ML ONE (00:54)
[2018-11-14] MEDS: DUONEB *Not for PRN Use IH SCH ×3 (01:50→20:24)
[2018-11-14] MEDS: D5NS 1,000 ML IV SCH ×2 (02:53→14:45)
[2018-11-14] MEDS ORDERED: APRESOLINE IV PRN (03:02)
[2018-11-14 05:43] LABS: Basophils % (Auto) 0.1 % (0.0-1.8); Hematocrit 42.6 % (35.5-45.6); Hemoglobin 13.7 gm/dl (11.8-15.2); Lymphocytes # (Auto) 0.2 K/mm3 (1.2-5.4); Lymphocytes % (Auto) 2.2 % (13.4-35.0); Mean Corpuscular HGB Conc 32 % (32-34); Monocytes # (Auto) 0.9 K/mm3 (0.0-0.8); Monocytes % (Auto) 9.5 % (0.0-7.3); Platelet Count 178 K/mm3 (140-440); Red Cell Distribution Width 15.1 % (13.2-15.2)
[2018-11-14 05:44] LABS: Mean Corpuscular Volume 70 fl (84-94)
[2018-11-14] MEDS: FLAGYL 500 MG/100 ML 500 MG/100 ML BAG IV SCH ×4 (05:52→21:29)
[2018-11-14 06:10] LABS: Alanine Aminotransferase 9 units/L (7-56); Albumin 3.1 g/dL (3.9-5); BUN/Creatinine Ratio 21; Blood Urea Nitrogen 17 mg/dL (9-20); Hemolysis Index 5
--- NOTE | 2018-11-14 07:12 | Consultation ---
REASON FOR CONSULTATION: Rule out incarcerated right inguinal hernia. HISTORY OF PRESENT ILLNESS: The patient is a pleasant 77-year-old gentleman who is known to me. He is status post left inguinal hernia repair last year and a subsequent open right inguinal hernia repair last January. At this time, the patient was being admitted secondary to complaints of abdominal distention and nausea and vomiting. Physical exam at that time also revealed a nonreducible right inguinal hernia. A CT scan of the abdomen was performed, which reveals an incarcerated right inguinal hernia with a high-grade obstruction. PAST MEDICAL HISTORY: Pertinent for hypertension, diabetes, and COPD. PAST SURGICAL HISTORY: Status post bilateral inguinal hernia repairs. PHYSICAL EXAMINATION: GENERAL: Physical exam at this time reveals the patient to be somewhat sedated due to receiving recent narcotics. VITAL SIGNS: Show him to be afebrile with a temperature of 97.9, blood pressure of 118/67, pulse of 83, respirations of 18. ABDOMEN: Examination of the abdomen reveals abdominal distention. No tenderness can be elicited at this time. Examination of the right groin reveals a nonreducible incarcerated right inguinal hernia. LABORATORY DATA: Lab work at present includes a CBC, which shows a white count of 4.7, H and H of 12.4 and 38.8. Electrolytes are essentially within normal limits. Lactic acid is elevated at 2.1. CT scan was performed, findings previously noted. IMPRESSION: 1. At this time is that of a 77-year-old gentleman with multiple medical problems including hypertension, diabetes, and chronic obstructive pulmonary disease. 2. Rule out incarcerated right inguinal hernia with a high-grade small bowel obstruction. RECOMMENDATIONS: At this time, I have discussed with the patient as well as family member, with the granddaughter. The patient's son is also on his way and we will further discuss with him. Indications, high risks, as well as complications have been reviewed with the family and we will once again review in the preop holding area. Family understands and consent is to be signed. Plan at this time is to proceed with emergency exploratory laparotomy, possible bowel resection, and possible right inguinal hernia repair. Most likely, the patient will need to be transferred to ICU postoperatively. I have also discussed with the patient's hospitalist who is aware. We will also inform Anesthesia for preoperative anesthesia evaluation prior to proceeding with surgery. JOB# [id number] FP/NTS
[2018-11-14] MEDS: HumaLOG SUB-Q SCH ×4 (09:11→16:10)
--- NOTE | 2018-11-14 10:12 | Post Anesthesia Evaluation ---
- Post Anesthesia Evaluation Patient Participated: Yes Airway Patent: Yes Stable Respiratory Function: Yes Nausea/Vomiting: No Temp > 96.8F: Yes Pain Manageable: Yes Adequeate Hydration: Yes Anesthesia Complications: No Block Receding Appropriately: Not Applicable Patient on Ventilator: No
[2018-11-14] MEDS: DILAUDID IV PRN ×2 (11:44→16:01)
[2018-11-14] MEDS: PEPCID IV SCH ×3 (11:47→21:29)
[2018-11-14] MEDS: ROCEPHIN/NS 1 GM/50 ML 1 GM/50 ML BAG IV SCH (12:06)
--- NOTE | 2018-11-14 12:38 | Event Note ---
Date: 11/14/18 Post Op day one from incarcerated hernia repair. Stable, on no drips and nasal cannula with sats of 100. Family at bedside. Asked [facility] to transfer out of unit. Can go to surgical floor if they prefer but appears that med surge would be fine as well.
--- NOTE | 2018-11-14 12:54 | Progress Note ---
Assessment and Plan Incarcerated right hernia with high-grade small bowel obstruction - cont iv fluid, keep NPO - Dr. Graham tried to reduce the hernia at bedside and the hernia was only partially reduced -reconsult Dr. Pagan - s/p bowel resection yesterday - cont post-op care, added flagyl iv Upper lobe pneumonia, being treated as outpt - cont rocephin, Hypertension, stable Diabetes type 2 - check fingersticks initiate insulin sliding scale COPD, stable placed on nebs as needed - Severe PCM - dietary consult when able to take po lactic acidosis, due to bowel obstruction, trending down - DVT prophylaxis, SCD Brief history: 77-year-old man with a history of hypertension, diabetes, COPD, who saw his senior manufacturing technician on Dr. Pierce started on Levaquin for PNA. Since he started Levaquin for the last 3 days per the pt he has been having nausea vomiting, generalized weakness and decreased appetite. He stated he has not eaten in [address] abdomen/pelvis is concerning for high grade obstruction, GS consulted. CT abdomen/pelvis w contrast: 1. Incarcerated right inguinal hernia resulting in high-grade distal small bowel obstruction. 2. Noninflamed colonic diverticulosis. 3. Calcified gallstones. Subjective Date of service: 11/14/18 Interval history: Patient seen and examined s/p surgery yesterday, tolerated well pulled NG tube, c/o abdominal pain Objective - Exam Narrative Exam: General appearance: Present: mild distress, other (malnourished) - EENT Eyes: PERRL, EOM intact ENT: hearing intact, clear oral mucosa Ears: bilateral: normal - Neck Neck: supple, normal ROM - Respiratory Respiratory effort: normal Respiratory: bilateral: CTA - Cardiovascular Rhythm: regular Heart Sounds: Present: S1 & S2. Absent: gallop, rub Extremities: pulses intact, No edema, normal color, Full ROM - Gastrointestinal General gastrointestinal: Present: soft, hypoactive bowel sounds, intact surgical dressing on place - no bleeding - Integumentary Integumentary: clear, warm, dry - Musculoskeletal Musculoskeletal: 1, strength equal bilaterally - Neurologic Neurologic: moves all extremities - Psychiatric Psychiatric: memory intact, appropriate mood/affect, intact judgment & insight - Constitutional Vitals: Vital Signs - 12hr 11/14/18 11/14/18 11/14/18 01:19 01:25 01:30 Temperature 98.3 F Pulse Rate 80 77 Pulse Rate [ Anterior] Respiratory 17 Rate Respiratory Rate [Anterior] Blood Pressure 181/97 O2 Sat by Pulse 100 Oximetry 11/14/18 11/14/18 11/14/18 01:45 01:57 02:00 Temperature Pulse Rate 78 77 Pulse Rate [ Anterior] Respiratory 18 17 17 Rate Respiratory Rate [Anterior] Blood Pressure 149/85 166/89 O2 Sat by Pulse 95 98 Oximetry 11/14/18 11/14/18 11/14/18 02:03 02:10 02:15 Temperature Pulse Rate 77 81 Pulse Rate [ 79 Anterior] Respiratory 15 Rate Respiratory 16 Rate [Anterior] Blood Pressure 136/80 O2 Sat by Pulse 97 Oximetry 11/14/18 11/14/18 11/14/18 02:27 02:30 02:45 Temperature Pulse Rate 82 85 Pulse Rate [ Anterior] Respiratory 21 15 17 Rate Respiratory Rate [Anterior] Blood Pressure 134/79 162/86 O2 Sat by Pulse 96 96 Oximetry 11/14/18 11/14/18 11/14/18 03:00 03:15 03:30 Temperature Pulse Rate 92 H 87 94 H Pulse Rate [ Anterior] Respiratory 20 16 20 Rate Respiratory Rate [Anterior] Blood Pressure 164/86 159/87 146/97 O2 Sat by Pulse 97 97 96 Oximetry 11/14/18 11/14/18 11/14/18 03:45 03:49 04:00 Temperature 98.2 F Pulse Rate 82 87 Pulse Rate [ Anterior] Respiratory 17 18 Rate Respiratory Rate [Anterior] Blood Pressure 146/97 152/89 O2 Sat by Pulse 98 98 Oximetry 11/14/18 11/14/18 11/14/18 04:30 05:00 05:30 Temperature Pulse Rate 86 96 H 93 H Pulse Rate [ Anterior] Respiratory 19 21 22 Rate Respiratory Rate [Anterior] Blood Pressure 158/87 163/95 177/96 O2 Sat by Pulse 95 95 97 Oximetry 11/14/18 11/14/18 11/14/18 06:00 06:30 07:00 Temperature Pulse Rate 93 H 82 93 H Pulse Rate [ Anterior] Respiratory 20 22 23 Rate Respiratory Rate [Anterior] Blood Pressure 164/89 169/84 171/85 O2 Sat by Pulse 96 98 95 Oximetry 11/14/18 11/14/18 11/14/18 07:30 07:51 07:53 Temperature Pulse Rate 84 Pulse Rate [ 89 Anterior] Respiratory 21 Rate Respiratory 22 Rate [Anterior] Blood Pressure 182/80 O2 Sat by Pulse 95 98 Oximetry 11/14/18 11/14/18 11/14/18 08:00 08:30 09:00 Temperature Pulse Rate 89 86 81 Pulse Rate [ Anterior] Respiratory 20 20 18 Rate Respiratory Rate [Anterior] Blood Pressure 174/90 155/82 155/85 O2 Sat by Pulse 97 98 97 Oximetry - Labs CBC & Chem 7: 11/15/18 08:38 11/15/18 08:38 Labs: Abnormal lab results 11/13/18 11/13/18 11/13/18 Range/Units 13:10 17:34 21:13 RBC (3.65-5.03) M/mm3 MCV (84-94) fl MCH (28-32) pg Lymph % (Auto) (13.4-35.0) % [place] % (Auto) (0.0-7.3) % Lymph # (1.2-5.4) K/mm3 [place] # (0.0-0.8) K/mm3 Seg Neutrophils % (40.0-70.0) % Seg Neutrophils # (1.8-7.7) K/mm3 Glucose (75-100) mg/dL POC Glucose 224 H 217 H 166 H (70-105) Calcium (8.4-10.2) mg/dL Total Protein (6.3-8.2) g/dL Albumin (3.9-5) g/dL 11/14/18 11/14/18 11/14/18 Range/Units 00:01 05:15 05:15 RBC 6.10 H (3.65-5.03) M/mm3 MCV 70 L (84-94) fl MCH 22 L (28-32) pg Lymph % (Auto) 2.2 L (13.4-35.0) % [place] % (Auto) 9.5 H (0.0-7.3) % Lymph # 0.2 L (1.2-5.4) K/mm3 [place] # 0.9 H (0.0-0.8) K/mm3 Seg Neutrophils % 88.2 H (40.0-70.0) % Seg Neutrophils # 8.0 H (1.8-7.7) K/mm3 Glucose 263 H (75-100) mg/dL POC Glucose 180 H (70-105) Calcium 8.0 L (8.4-10.2) mg/dL Total Protein 5.9 L D (6.3-8.2) g/dL Albumin 3.1 L (3.9-5) g/dL
--- NOTE | 2018-11-14 13:28 | Progress Note ---
Assessment and Plan POD # 1 Pt resting comfortably in bed. pulled out ng. 89 u/o from this am Abd 2 plus distended non tender. dressings dry slightly tachypneic (on NC O2) lactic acid down to 1.9 surgically stable re-insert ng OOB as daisy continue present care Selected Entries 11/14/18 11/14/18 03:49 05:00 Temperature 98.2 F Pulse Rate 96 H Respiratory 21 Rate Blood Pressure 163/95 Laboratory Tests 11/14/18 11/14/18 11/14/18 05:15 05:15 05:15 Hgb 13.7 Hct 42.6 Sodium 137 Potassium 4.3 Chloride 98.2 Carbon Dioxide 27 BUN 17 Creatinine 0.8 Lactic Acid 1.90 Objective Vital Signs - 12hr 11/14/18 11/14/18 11/14/18 01:30 01:45 01:57 Temperature Pulse Rate 77 78 Pulse Rate [ Anterior] Respiratory 17 18 17 Rate Respiratory Rate [Anterior] Blood Pressure 181/97 149/85 O2 Sat by Pulse 100 95 Oximetry 11/14/18 11/14/18 11/14/18 02:00 02:03 02:10 Temperature Pulse Rate 77 77 Pulse Rate [ 79 Anterior] Respiratory 17 Rate Respiratory 16 Rate [Anterior] Blood Pressure 166/89 O2 Sat by Pulse 98 Oximetry 11/14/18 11/14/18 11/14/18 02:15 02:27 02:30 Temperature Pulse Rate 81 82 Pulse Rate [ Anterior] Respiratory 15 21 15 Rate Respiratory Rate [Anterior] Blood Pressure 136/80 134/79 O2 Sat by Pulse 97 96 Oximetry 11/14/18 11/14/18 11/14/18 02:45 03:00 03:15 Temperature Pulse Rate 85 92 H 87 Pulse Rate [ Anterior] Respiratory 17 20 16 Rate Respiratory Rate [Anterior] Blood Pressure 162/86 164/86 159/87 O2 Sat by Pulse 96 97 97 Oximetry 11/14/18 11/14/18 11/14/18 03:30 03:45 03:49 Temperature 98.2 F Pulse Rate 94 H 82 Pulse Rate [ Anterior] Respiratory 20 17 Rate Respiratory Rate [Anterior] Blood Pressure 146/97 146/97 O2 Sat by Pulse 96 98 Oximetry 11/14/18 11/14/18 11/14/18 04:00 04:30 05:00 Temperature Pulse Rate 87 86 96 H Pulse Rate [ Anterior] Respiratory 18 19 21 Rate Respiratory Rate [Anterior] Blood Pressure 152/89 158/87 163/95 O2 Sat by Pulse 98 95 95 Oximetry 11/14/18 11/14/18 11/14/18 05:30 06:00 06:30 Temperature Pulse Rate 93 H 93 H 82 Pulse Rate [ Anterior] Respiratory 22 20 22 Rate Respiratory Rate [Anterior] Blood Pressure 177/96 164/89 169/84 O2 Sat by Pulse 97 96 98 Oximetry 11/14/18 11/14/18 11/14/18 07:00 07:30 07:51 Temperature Pulse Rate 93 H 84 Pulse Rate [ 89 Anterior] Respiratory 23 21 Rate Respiratory 22 Rate [Anterior] Blood Pressure 171/85 182/80 O2 Sat by Pulse 95 95 Oximetry 11/14/18 11/14/18 11/14/18 07:53 08:00 08:30 Temperature 98.5 F Pulse Rate 89 86 Pulse Rate [ Anterior] Respiratory 20 20 Rate Respiratory Rate [Anterior] Blood Pressure 174/90 155/82 O2 Sat by Pulse 98 97 98 Oximetry 11/14/18 09:00 Temperature Pulse Rate 81 Pulse Rate [ Anterior] Respiratory 18 Rate Respiratory Rate [Anterior] Blood Pressure 155/85 O2 Sat by Pulse 97 Oximetry - Labs 11/14/18 05:15 11/14/18 05:15 Diabetes panel 11/14/18 Range/Units 05:15 Sodium 137 (137-145) mmol/L Potassium 4.3 (3.6-5.0) mmol/L Chloride 98.2 (98-107) mmol/L Carbon Dioxide 27 (22-30) mmol/L BUN 17 (9-20) mg/dL Creatinine 0.8 (0.8-1.5) mg/dL Glucose 263 H (75-100) mg/dL Calcium 8.0 L (8.4-10.2) mg/dL AST 14 (5-40) units/L ALT 9 (7-56) units/L Alkaline Phosphatase 52 (35-129) units/L Total Protein 5.9 L D (6.3-8.2) g/dL Albumin 3.1 L (3.9-5) g/dL Calcium panel 11/14/18 Range/Units 05:15 Calcium 8.0 L (8.4-10.2) mg/dL Albumin 3.1 L (3.9-5) g/dL Pituitary panel 11/14/18 Range/Units 05:15 Sodium 137 (137-145) mmol/L Potassium 4.3 (3.6-5.0) mmol/L Chloride 98.2 (98-107) mmol/L Carbon Dioxide 27 (22-30) mmol/L BUN 17 (9-20) mg/dL Creatinine 0.8 (0.8-1.5) mg/dL Glucose 263 H (75-100) mg/dL Calcium 8.0 L (8.4-10.2) mg/dL Adrenal panel 11/14/18 Range/Units 05:15 Sodium 137 (137-145) mmol/L Potassium 4.3 (3.6-5.0) mmol/L Chloride 98.2 (98-107) mmol/L Carbon Dioxide 27 (22-30) mmol/L BUN 17 (9-20) mg/dL Creatinine 0.8 (0.8-1.5) mg/dL Glucose 263 H (75-100) mg/dL Calcium 8.0 L (8.4-10.2) mg/dL Total Bilirubin 0.50 (0.1-1.2) mg/dL AST 14 (5-40) units/L ALT 9 (7-56) units/L Alkaline Phosphatase 52 (35-129) units/L Total Protein 5.9 L D (6.3-8.2) g/dL Albumin 3.1 L (3.9-5) g/dL
[2018-11-14] MEDS: SODIUM CHLORIDE FLUSH SYRINGE 10 ML IV SCH (13:33)
--- NOTE | 2018-11-14 14:48 | XRay Report ---
ABDOMEN 1 VIEW(S) 11/14/2018 2:28 PM INDICATION / CLINICAL INFORMATION: NGT placement. COMPARISON: None available. FINDINGS: The tip of an esophagogastric tube projects over the GE junction and is folded back upon itself with tip in distal thoracic esophagus pointed superiorly. Recommend repositioning. Signer Name: Giuliano Quesada MD Signed: 11/14/2018 2:44 PM Workstation Name: [employer] [facility]
--- NOTE | 2018-11-14 15:36 | XRay Report ---
ABDOMEN 1 VIEW(S) 11/14/2018 3:10 PM INDICATION / CLINICAL INFORMATION: NGT repostioned. COMPARISON: This study at 3:10 PM was compared to earlier study at 2:28 PM same day FINDINGS: The tip of an esophagogastric tube projects over the midthoracic esophagus and is folded back upon it self. Please completely withdrawn the NG tube before repositioning Signer Name: Giuliano Quesada MD Signed: 11/14/2018 3:31 PM Workstation Name: [employer]
[2018-11-15] MEDS: HumaLOG SUB-Q SCH ×4 (00:18→23:36)
[2018-11-15] MEDS: SODIUM CHLORIDE FLUSH SYRINGE 10 ML IV SCH ×3 (00:20→21:39)
[2018-11-15] MEDS: DUONEB *Not for PRN Use IH SCH ×5 (01:29→21:17)
[2018-11-15] MEDS: D5NS 1,000 ML IV SCH (03:10)
[2018-11-15] MEDS: DILAUDID IV PRN (05:39)
[2018-11-15] MEDS: FLAGYL 500 MG/100 ML 500 MG/100 ML BAG IV SCH ×3 (05:39→21:36)
--- NOTE | 2018-11-15 07:21 | XRay Report ---
ABDOMEN 1 VIEW(S) 11/15/2018 7:00 AM INDICATION / CLINICAL INFORMATION: tube placement. COMPARISON: 1:58 AM same day FINDINGS: The tip of an esophagogastric tube projects over the proximal stomach with side hole in distal thorac ic esophagus and could be advanced further distally. Previously, the NG tube has tip in right lower l obe bronchus.. Signer Name: Giuliano Quesada MD Signed: 11/15/2018 7:17 AM Workstation Name: [email or web address]
[2018-11-15] MEDS: PEPCID IV SCH ×3 (08:32→21:26)
[2018-11-15 09:15] LABS: Hematocrit 36.6 % (35.5-45.6); Hemoglobin 12.1 gm/dl (11.8-15.2)
[2018-11-15 09:27] LABS: BUN/Creatinine Ratio 16; Blood Urea Nitrogen 11 mg/dL (9-20); Calcium 8.1 mg/dL (8.4-10.2); Hemolysis Index 1
[2018-11-15] MEDS: ROCEPHIN/NS 1 GM/50 ML 1 GM/50 ML BAG IV SCH (09:30)
--- NOTE | 2018-11-15 10:37 | Progress Note ---
Assessment and Plan POD # 2 Pt doing well. pulled ng twice yesterday. re-inserted Abd - 2+ distended non tender stable add K to IVF OOB as daisy restraints continue present care Selected Entries 11/15/18 07:58 Temperature 97.4 F L Pulse Rate 86 Respiratory 20 Rate Blood Pressure 124/72 Laboratory Tests 11/15/18 11/15/18 08:38 08:38 Hgb 12.1 Hct 36.6 D Potassium 3.4 L D Objective Vital Signs - 12hr 11/14/18 11/15/18 11/15/18 23:18 05:39 07:24 Temperature Pulse Rate Pulse Rate [ 100 H Anterior] Respiratory 20 18 Rate Respiratory 19 Rate [Anterior] Blood Pressure O2 Sat by Pulse Oximetry 11/15/18 11/15/18 07:25 07:58 Temperature 97.4 F L Pulse Rate 86 Pulse Rate [ Anterior] Respiratory 20 Rate Respiratory Rate [Anterior] Blood Pressure 124/72 O2 Sat by Pulse 98 100 Oximetry - Labs 11/15/18 08:38 11/15/18 08:38 Diabetes panel 11/15/18 Range/Units 08:38 Sodium 136 L (137-145) mmol/L Potassium 3.4 L D (3.6-5.0) mmol/L Chloride 98.5 (98-107) mmol/L Carbon Dioxide 27 (22-30) mmol/L BUN 11 (9-20) mg/dL Creatinine 0.7 L (0.8-1.5) mg/dL Glucose 212 H (75-100) mg/dL Calcium 8.1 L (8.4-10.2) mg/dL Calcium panel 11/15/18 Range/Units 08:38 Calcium 8.1 L (8.4-10.2) mg/dL Pituitary panel 11/15/18 Range/Units 08:38 Sodium 136 L (137-145) mmol/L Potassium 3.4 L D (3.6-5.0) mmol/L Chloride 98.5 (98-107) mmol/L Carbon Dioxide 27 (22-30) mmol/L BUN 11 (9-20) mg/dL Creatinine 0.7 L (0.8-1.5) mg/dL Glucose 212 H (75-100) mg/dL Calcium 8.1 L (8.4-10.2) mg/dL Adrenal panel 11/15/18 Range/Units 08:38 Sodium 136 L (137-145) mmol/L Potassium 3.4 L D (3.6-5.0) mmol/L Chloride 98.5 (98-107) mmol/L Carbon Dioxide 27 (22-30) mmol/L BUN 11 (9-20) mg/dL Creatinine 0.7 L (0.8-1.5) mg/dL Glucose 212 H (75-100) mg/dL Calcium 8.1 L (8.4-10.2) mg/dL
[2018-11-15] MEDS: KCL 10MEQ/100ML 10 MEQ/100 ML BAG IV SCH ×3 (11:00→23:37)
--- NOTE | 2018-11-15 13:01 | Progress Note ---
Assessment and Plan Incarcerated right hernia with high-grade small bowel obstruction - cont iv fluid, keep NPO - Dr. Graham tried to reduce the hernia at bedside and the hernia was only partially reduced -reconsult Dr. Pagan - s/p bowel resection on 11/13/18/ - cont post-op care, added flagyl iv Upper lobe pneumonia, being treated as outpt - cont rocephin, Hypertension, stable Diabetes type 2 - check fingersticks initiate insulin sliding scale COPD, stable placed on nebs as needed - Severe PCM - dietary consult when able to take po lactic acidosis, due to bowel obstruction, trending down - DVT prophylaxis, SCD Brief history: 77-year-old man with a history of hypertension, diabetes, COPD, who saw his clothing examiner on Dr. Pierce started on Levaquin for PNA. Since he started Levaquin for the last 3 days per the pt he has been having nausea vomiting, generalized weakness and decreased appetite. He stated he has not eaten in [address] abdomen/pelvis is concerning for high grade obstruction, GS consulted. CT abdomen/pelvis w contrast: 1. Incarcerated right inguinal hernia resulting in high-grade distal small bowel obstruction. 2. Noninflamed colonic diverticulosis. 3. Calcified gallstones. Subjective Date of service: 11/15/18 Interval history: Patient seen and examined c/o abdominal pain, on NG suction, wants to eat Family at bedside updated Objective - Exam Narrative Exam: General appearance: Present: mild distress, other (malnourished) - EENT Eyes: PERRL, EOM intact ENT: hearing intact, clear oral mucosa Ears: bilateral: normal - Neck Neck: supple, normal ROM - Respiratory Respiratory effort: normal Respiratory: bilateral: CTA - Cardiovascular Rhythm: regular Heart Sounds: Present: S1 & S2. Absent: gallop, rub Extremities: pulses intact, No edema, normal color, Full ROM - Gastrointestinal General gastrointestinal: Present: soft, hypoactive bowel sounds, intact surgical dressing on place - no bleeding - Integumentary Integumentary: clear, warm, dry - Musculoskeletal Musculoskeletal: 1, strength equal bilaterally - Neurologic Neurologic: moves all extremities - Psychiatric Psychiatric: memory intact, appropriate mood/affect, intact judgment & insight - Constitutional Vitals: Vital Signs - 12hr 11/15/18 11/15/18 11/15/18 05:39 07:24 07:25 Temperature Pulse Rate Pulse Rate [ 100 H Anterior] Respiratory 18 Rate Respiratory 19 Rate [Anterior] Blood Pressure O2 Sat by Pulse 98 Oximetry 11/15/18 07:58 Temperature 97.4 F L Pulse Rate 86 Pulse Rate [ Anterior] Respiratory 20 Rate Respiratory Rate [Anterior] Blood Pressure 124/72 O2 Sat by Pulse 100 Oximetry - Labs CBC & Chem 7: 11/15/18 08:38 11/16/18 06:20 Labs: Abnormal lab results 11/14/18 11/14/18 11/15/18 Range/Units 13:10 16:14 08:38 Sodium 136 L (137-145) mmol/L Potassium 3.4 L D (3.6-5.0) mmol/L Creatinine 0.7 L (0.8-1.5) mg/dL Glucose 212 H (75-100) mg/dL POC Glucose 292 H 245 H (70-105) Calcium 8.1 L (8.4-10.2) mg/dL 11/15/18 Range/Units 11:23 Sodium (137-145) mmol/L Potassium (3.6-5.0) mmol/L Creatinine (0.8-1.5) mg/dL Glucose (75-100) mg/dL POC Glucose 226 H (70-105) Calcium (8.4-10.2) mg/dL
[2018-11-16] MEDS: DUONEB *Not for PRN Use IH SCH ×4 (03:47→21:30)
[2018-11-16] MEDS: FLAGYL 500 MG/100 ML 500 MG/100 ML BAG IV SCH ×3 (05:37→21:28)
[2018-11-16 07:18] LABS: BUN/Creatinine Ratio 13; Blood Urea Nitrogen 8 mg/dL (9-20); Calcium 8.1 mg/dL (8.4-10.2); Hemolysis Index 2
[2018-11-16] MEDS: PEPCID IV SCH ×2 (09:39→21:27)
[2018-11-16] MEDS: ROCEPHIN/NS 1 GM/50 ML 1 GM/50 ML BAG IV SCH (09:39)
[2018-11-16] MEDS: D5W/NS W/KCL 20MEQ 20 MEQ/1,000 ML BAG IV SCH (09:39)
[2018-11-16] MEDS: HumaLOG SUB-Q SCH ×4 (09:39→22:23)
[2018-11-16] MEDS: SODIUM CHLORIDE FLUSH SYRINGE 10 ML IV SCH ×3 (09:40→21:29)
[2018-11-16] MEDS: KCL 10MEQ/100ML 10 MEQ/100 ML BAG IV SCH ×3 (11:18→16:49)
--- NOTE | 2018-11-16 12:00 | Progress Note ---
Assessment and Plan Incarcerated right hernia with high-grade small bowel obstruction - cont iv fluid, keep NPO - Dr. Graham tried to reduce the hernia at bedside and the hernia was only partially reduced -reconsulted Dr. 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 Pierce started on Levaquin for PNA. Since he started Levaquin for the last 3 days per the pt he has been having nausea vomiting, generalized weakness and decreased appetite. He stated he has not eaten in [address] abdomen/pelvis is concerning for high grade obstruction, GS consulted. CT abdomen/pelvis w contrast: 1. Incarcerated right inguinal hernia resulting in high-grade distal small bowel obstruction. 2. Noninflamed colonic diverticulosis. 3. Calcified gallstones. Subjective Date of service: 11/16/18 Interval history: Patient seen and examined c/o abdominal pain, on NG suction, wants to eat no flatus or BM yet Family at bedside updated Objective - Exam Narrative Exam: General appearance: Present: mild distress, other (malnourished) - EENT Eyes: PERRL, EOM intact ENT: hearing intact, clear oral mucosa Ears: bilateral: normal - Neck Neck: supple, normal ROM - Respiratory Respiratory effort: normal Respiratory: bilateral: CTA - Cardiovascular Rhythm: regular Heart Sounds: Present: S1 & S2. Absent: gallop, rub Extremities: pulses intact, No edema, normal color, Full ROM - Gastrointestinal General gastrointestinal: Present: soft, hypoactive bowel sounds, intact surgical dressing on place - no bleeding - Integumentary Integumentary: clear, warm, dry - Musculoskeletal Musculoskeletal: 1, strength equal bilaterally - Neurologic Neurologic: moves all extremities - Psychiatric Psychiatric: memory intact, appropriate mood/affect, intact judgment & insight - Constitutional Vitals: Vital Signs - 12hr 09/01/19 09/01/19 09/01/19 00:50 04:58 05:05 Temperature 98.7 F 98.7 F Pulse Rate 103 H 95 H 74 Respiratory 18 18 Rate Blood Pressure 123/84 Blood Pressure 129/73 [Right] O2 Sat by Pulse 95 95 97 Oximetry 11/16/18 11/16/18 05:16 08:01 Temperature 98.8 F 98.9 F Pulse Rate 95 H 89 Respiratory 17 18 Rate Blood Pressure 134/77 Blood Pressure 145/76 [Right] O2 Sat by Pulse 95 95 Oximetry - Labs CBC & Chem 7: 11/17/18 06:17 11/17/18 06:17 Labs: Abnormal lab results 11/15/18 11/15/18 11/16/18 Range/Units 17:53 22:13 06:20 Sodium 136 L (137-145) mmol/L Potassium 3.4 L (3.6-5.0) mmol/L Chloride 96.6 L (98-107) mmol/L BUN 8 L (9-20) mg/dL Creatinine 0.6 L (0.8-1.5) mg/dL Glucose 209 H (75-100) mg/dL POC Glucose 180 H 161 H (70-105) Calcium 8.1 L (8.4-10.2) mg/dL 11/16/18 Range/Units 08:09 Sodium (137-145) mmol/L Potassium (3.6-5.0) mmol/L Chloride (98-107) mmol/L BUN (9-20) mg/dL Creatinine (0.8-1.5) mg/dL Glucose (75-100) mg/dL POC Glucose 217 H (70-105) Calcium (8.4-10.2) mg/dL
[2018-11-16] MEDS: CHLORASEPTIC MM PRN (13:29)
[2018-11-17] MEDS: FLAGYL 500 MG/100 ML 500 MG/100 ML BAG IV SCH (05:41)
[2018-11-17 07:23] LABS: Hematocrit 36.3 % (35.5-45.6); Mean Corpuscular HGB Conc 33 % (32-34); Mean Corpuscular Volume 68 fl (84-94); Platelet Count 181 K/mm3 (140-440); Red Blood Count 5.32 M/mm3 (3.65-5.03); Red Cell Distribution Width 14.8 % (13.2-15.2)
[2018-11-17 07:34] LABS: BUN/Creatinine Ratio 15; Blood Urea Nitrogen 9 mg/dL (9-20); Hemolysis Index 1
[2018-11-17 08:35] LABS: Basophils % (Manual) 0 % (0.0-1.8); Total Cells Counted 100
[2018-11-17 08:36] LABS: Platelet Estimate Consistent w Auto
[2018-11-17 08:37] LABS: Anisocytosis 1+; Target Cells Few; Tear Drop Cells Rare
[2018-11-17] MEDS: DUONEB *Not for PRN Use IH SCH ×2 (09:27→17:50)
[2018-11-17] MEDS: PEPCID IV SCH ×2 (09:28→21:29)
[2018-11-17] MEDS: HumaLOG SUB-Q SCH ×5 (09:28→22:02)
[2018-11-17] MEDS: ROCEPHIN/NS 1 GM/50 ML 1 GM/50 ML BAG IV SCH (09:28)
[2018-11-17] MEDS: SODIUM CHLORIDE FLUSH SYRINGE 10 ML IV SCH (09:28)
--- NOTE | 2018-11-17 13:01 | Progress Note ---
Assessment and Plan Incarcerated right hernia with high-grade small bowel obstruction - cont iv fluid, keep NPO - Dr. Graham tried to reduce the hernia at bedside and the hernia was only partially reduced -reconsulted Dr. 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 Pierce started on Levaquin for PNA. Since he started Levaquin for the last 3 days per the pt he has been having nausea vomiting, generalized weakness and decreased appetite. He stated he has not eaten in [address] abdomen/pelvis is concerning for high grade obstruction, GS consulted. CT abdomen/pelvis w contrast: 1. Incarcerated right inguinal hernia resulting in high-grade distal small bowel obstruction. 2. Noninflamed colonic diverticulosis. 3. Calcified gallstones. Subjective Date of service: 11/17/18 Interval history: Patient seen and examined NG was clamped but developed abdominal distention no flatus or BM yet Family at bedside updated Objective - Exam Narrative Exam: General appearance: Present: mild distress, other (malnourished) - EENT Eyes: PERRL, EOM intact ENT: hearing intact, clear oral mucosa Ears: bilateral: normal - Neck Neck: supple, normal ROM - Respiratory Respiratory effort: normal Respiratory: bilateral: CTA - Cardiovascular Rhythm: regular Heart Sounds: Present: S1 & S2. Absent: gallop, rub Extremities: pulses intact, No edema, normal color, Full ROM - Gastrointestinal General gastrointestinal: Present: soft, hypoactive bowel sounds, intact surgica l dressing on place - no bleeding - Integumentary Integumentary: clear, warm, dry - Musculoskeletal Musculoskeletal: 1, strength equal bilaterally - Neurologic Neurologic: moves all extremities - Psychiatric Psychiatric: memory intact, appropriate mood/affect, intact judgment & insight - Constitutional Vitals: Vital Signs - 12hr 11/17/18 11/17/18 11/17/18 01:16 04:50 07:05 Temperature 99.3 F 97.9 F 98.2 F Pulse Rate 94 H 89 91 H Pulse Rate [ Anterior] Respiratory 16 16 16 Rate Respiratory Rate [Anterior] Respiratory Rate [ GENERALIZED] Blood Pressure 134/86 135/79 Blood Pressure 136/86 [Right] O2 Sat by Pulse 96 96 95 Oximetry 11/17/18 11/17/18 11/17/18 07:33 08:00 09:29 Temperature Pulse Rate Pulse Rate [ 95 H Anterior] Respiratory Rate Respiratory 18 Rate [Anterior] Respiratory 18 Rate [ GENERALIZED] Blood Pressure Blood Pressure [Right] O2 Sat by Pulse 98 Oximetry 11/17/18 11:26 Temperature 99.0 F Pulse Rate 99 H Pulse Rate [ Anterior] Respiratory 16 Rate Respiratory Rate [Anterior] Respiratory Rate [ GENERALIZED] Blood Pressure 145/84 Blood Pressure [Right] O2 Sat by Pulse 97 Oximetry - Labs CBC & Chem 7: 11/19/18 06:14 11/18/18 04:25 Labs: Abnormal lab results 11/16/18 11/16/18 11/17/18 Range/Units 16:09 21:58 06:17 RBC 5.32 H (3.65-5.03) M/mm3 MCV 68 L (84-94) fl MCH 23 L (28-32) pg Seg Neuts % (Manual) 74.0 H (40.0-70.0) % Lymphocytes % (Manual) 12.0 L (13.4-35.0) % Monocytes % (Manual) 11.0 H (0.0-7.3) % Lymphocytes # (Manual) 0.7 L (1.2-5.4) K/mm3 Sodium (137-145) mmol/L Chloride (98-107) mmol/L Creatinine (0.8-1.5) mg/dL Glucose (75-100) mg/dL POC Glucose 106 H 172 H (70-105) Calcium (8.4-10.2) mg/dL 11/17/18 11/17/18 11/17/18 Range/Units 06:17 07:14 11:34 RBC (3.65-5.03) M/mm3 MCV (84-94) fl MCH (28-32) pg Seg Neuts % (Manual) (40.0-70.0) % Lymphocytes % (Manual) (13.4-35.0) % Monocytes % (Manual) (0.0-7.3) % Lymphocytes # (Manual) (1.2-5.4) K/mm3 Sodium 136 L (137-145) mmol/L Chloride 96.3 L (98-107) mmol/L Creatinine 0.6 L (0.8-1.5) mg/dL Glucose 202 H (75-100) mg/dL POC Glucose 189 H 159 H (70-105) Calcium 8.0 L (8.4-10.2) mg/dL
[2018-11-17] MEDS: CHLORASEPTIC MM PRN (16:49)
--- NOTE | 2018-11-17 19:07 | Progress Note ---
Assessment and Plan POD # 4 Pt feeling well. neg flatus. sat in chair today. NG 200cc Abd 2+ distended. non tender. neg BS stable ileus PT for ambulation continue present care Selected Entries 11/17/18 15:06 Temperature 98.3 F Pulse Rate 98 H Respiratory 18 Rate Blood Pressure 139/80 Laboratory Tests 11/17/18 11/17/18 06:17 06:17 WBC 6.2 Hgb 12.0 Hct 36.3 Potassium 3.6 Objective Vital Signs - 12hr 11/17/18 11/17/18 11/17/18 07:33 08:00 09:29 Temperature Pulse Rate Pulse Rate [ 95 H Anterior] Respiratory Rate Respiratory 18 Rate [Anterior] Respiratory 18 Rate [ GENERALIZED] Blood Pressure O2 Sat by Pulse 98 Oximetry 11/17/18 11/17/18 11/17/18 11:26 14:00 15:06 Temperature 99.0 F 98.3 F Pulse Rate 99 H 98 H Pulse Rate [ 97 H Anterior] Respiratory 16 18 Rate Respiratory 16 Rate [Anterior] Respiratory Rate [ GENERALIZED] Blood Pressure 145/84 139/80 O2 Sat by Pulse 97 95 Oximetry - Labs 11/17/18 06:17 11/17/18 06:17 Diabetes panel 11/17/18 Range/Units 06:17 Sodium 136 L (137-145) mmol/L Potassium 3.6 (3.6-5.0) mmol/L Chloride 96.3 L (98-107) mmol/L Carbon Dioxide 28 (22-30) mmol/L BUN 9 (9-20) mg/dL Creatinine 0.6 L (0.8-1.5) mg/dL Glucose 202 H (75-100) mg/dL Calcium 8.0 L (8.4-10.2) mg/dL Calcium panel 11/17/18 Range/Units 06:17 Calcium 8.0 L (8.4-10.2) mg/dL Pituitary panel 11/17/18 Range/Units 06:17 Sodium 136 L (137-145) mmol/L Potassium 3.6 (3.6-5.0) mmol/L Chloride 96.3 L (98-107) mmol/L Carbon Dioxide 28 (22-30) mmol/L BUN 9 (9-20) mg/dL Creatinine 0.6 L (0.8-1.5) mg/dL Glucose 202 H (75-100) mg/dL Calcium 8.0 L (8.4-10.2) mg/dL Adrenal panel 11/17/18 Range/Units 06:17 Sodium 136 L (137-145) mmol/L Potassium 3.6 (3.6-5.0) mmol/L Chloride 96.3 L (98-107) mmol/L Carbon Dioxide 28 (22-30) mmol/L BUN 9 (9-20) mg/dL Creatinine 0.6 L (0.8-1.5) mg/dL Glucose 202 H (75-100) mg/dL Calcium 8.0 L (8.4-10.2) mg/dL
[2018-11-17] MEDS: D5W/NS W/KCL 20MEQ 20 MEQ/1,000 ML BAG IV SCH (21:37)
[2018-11-18 04:58] LABS: Hematocrit 36.3 % (35.5-45.6); Hemoglobin 11.9 gm/dl (11.8-15.2)
[2018-11-18 05:15] LABS: BUN/Creatinine Ratio 13; Blood Urea Nitrogen 8 mg/dL (9-20); Hemolysis Index 2
[2018-11-18] MEDS: SODIUM CHLORIDE FLUSH SYRINGE 10 ML IV SCH ×2 (07:44→11:07)
[2018-11-18] MEDS ORDERED: DUONEB *Not for PRN Use IH SCH (08:00)
[2018-11-18] MEDS: HumaLOG SUB-Q SCH ×4 (09:19→18:28)
[2018-11-18] MEDS: D5W/NS W/KCL 20MEQ 20 MEQ/1,000 ML BAG IV SCH (11:05)
[2018-11-18] MEDS: PEPCID IV SCH (11:06)
[2018-11-18] MEDS: DUONEB *Not for PRN Use IH SCH ×3 (11:27→20:28)
--- NOTE | 2018-11-18 15:05 | Progress Note ---
Assessment and Plan POD # 5 Pt status quo. NG 100 cc Limited Ambulation with PT assistance Abd - less distended. neg BS incision clean and dry ileus surgically stable continue present care Selected Entries 11/18/18 11/18/18 11:23 11:31 Temperature 97.6 F Pulse Rate [ 93 H Anterior] Respiratory 18 Rate [Anterior] Blood Pressure 129/77 Objective Vital Signs - 12hr 11/18/18 11/18/18 11/18/18 04:54 07:45 07:47 Temperature 97.5 F L 99.0 F Pulse Rate 99 H 94 H Pulse Rate [ Anterior] Respiratory 18 23 Rate Respiratory Rate [Anterior] Blood Pressure 153/91 137/81 O2 Sat by Pulse 96 93 Oximetry 11/18/18 11/18/18 11/18/18 10:00 11:23 11:31 Temperature 97.6 F Pulse Rate 91 H Pulse Rate [ 93 H Anterior] Respiratory 18 Rate Respiratory 18 Rate [Anterior] Blood Pressure 129/77 O2 Sat by Pulse 93 94 Oximetry - Labs 11/18/18 04:25 11/18/18 04:25 Diabetes panel 11/18/18 Range/Units 04:25 Sodium 135 L (137-145) mmol/L Potassium 3.6 (3.6-5.0) mmol/L Chloride 95.8 L (98-107) mmol/L Carbon Dioxide 29 (22-30) mmol/L BUN 8 L (9-20) mg/dL Creatinine 0.6 L (0.8-1.5) mg/dL Glucose 204 H (75-100) mg/dL Calcium 8.0 L (8.4-10.2) mg/dL Calcium panel 11/18/18 Range/Units 04:25 Calcium 8.0 L (8.4-10.2) mg/dL Pituitary panel 11/18/18 Range/Units 04:25 Sodium 135 L (137-145) mmol/L Potassium 3.6 (3.6-5.0) mmol/L Chloride 95.8 L (98-107) mmol/L Carbon Dioxide 29 (22-30) mmol/L BUN 8 L (9-20) mg/dL Creatinine 0.6 L (0.8-1.5) mg/dL Glucose 204 H (75-100) mg/dL Calcium 8.0 L (8.4-10.2) mg/dL Adrenal panel 11/18/18 Range/Units 04:25 Sodium 135 L (137-145) mmol/L Potassium 3.6 (3.6-5.0) mmol/L Chloride 95.8 L (98-107) mmol/L Carbon Dioxide 29 (22-30) mmol/L BUN 8 L (9-20) mg/dL Creatinine 0.6 L (0.8-1.5) mg/dL Glucose 204 H (75-100) mg/dL Calcium 8.0 L (8.4-10.2) mg/dL
--- NOTE | 2018-11-18 16:29 | Progress Note ---
Assessment and Plan Incarcerated right hernia with high-grade small bowel obstruction now developed ileus - s/p bowel resection on 11/13/18 - cont iv fluid, keep NPO - cont post-op care with NG suction per GS, cont iv fluid, monitor off iv abx - may need to start TPN if patient remains NPO hypokalemia, replete, and monitor BMP Upper lobe pneumonia, was being treated as outpt - completed abx course, monitor off abs Hypertension, stable Diabetes type 2 - check fingersticks initiate insulin sliding scale COPD, stable placed on nebs as needed - Severe PCM - dietary consult when able to take po lactic acidosis, due to bowel obstruction, trending down - DVT prophylaxis, SCD Brief history: 77-year-old man with a history of hypertension, diabetes, COPD, 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 Since he started Levaquin for the last 3 days per the pt he has been having nausea vomiting, generalized weakness and decreased appetite. He stated he has not eaten in [address] abdomen/pelvis is concerning for high grade obstruction, GS consulted. CT abdomen/pelvis w contrast: 1. Incarcerated right inguinal hernia resulting in high-grade distal small bowel obstruction. 2. Noninflamed colonic diverticulosis. 3. Calcified gallstones. Subjective Date of service: 11/18/18 Interval history: Patient seen and examined no flatus or BM yet Family at bedside updated Objective - Exam Narrative Exam: General appearance: Present: mild distress, other (malnourished) - EENT Eyes: PERRL, EOM intact ENT: hearing intact, clear oral mucosa Ears: bilateral: normal - Neck Neck: supple, normal ROM - Respiratory Respiratory effort: normal Respiratory: bilateral: CTA - Cardiovascular Rhythm: regular Heart Sounds: Present: S1 & S2. Absent: gallop, rub Extremities: pulses intact, No edema, normal color, Full ROM - Gastrointestinal General gastrointestinal: Present: soft, hypoactive bowel sounds, intact surgical dressing on place - no bleeding - Integumentary Integumentary: clear, warm, dry - Musculoskeletal Musculoskeletal: 1, strength equal bilaterally - Neurologic Neurologic: moves all extremities - Psychiatric Psychiatric: memory intact, appropriate mood/affect, intact judgment & insight - Constitutional Vitals: Vital Signs - 12hr 11/18/18 11/18/18 11/18/18 04:54 07:45 07:47 Temperature 97.5 F L 99.0 F Pulse Rate 99 H 94 H Pulse Rate [ Anterior] Respiratory 18 23 Rate Respiratory Rate [Anterior] Respiratory Rate [ GENERALIZED] Blood Pressure 153/91 137/81 O2 Sat by Pulse 96 93 Oximetry 11/18/18 11/18/18 11/18/18 08:00 10:00 11:23 Temperature 97.6 F Pulse Rate 91 H Pulse Rate [ Anterior] Respiratory 18 Rate Respiratory Rate [Anterior] Respiratory 17 Rate [ GENERALIZED] Blood Pressure 129/77 O2 Sat by Pulse 93 94 Oximetry 11/18/18 11:31 Temperature Pulse Rate Pulse Rate [ 93 H Anterior] Respiratory Rate Respiratory 18 Rate [Anterior] Respiratory Rate [ GENERALIZED] Blood Pressure O2 Sat by Pulse Oximetry - Labs CBC & Chem 7: 11/19/18 06:14 11/18/18 04:25 Labs: Abnormal lab results 11/17/18 11/17/18 11/18/18 Range/Units 16:10 21:40 04:25 Sodium 135 L (137-145) mmol/L Chloride 95.8 L (98-107) mmol/L BUN 8 L (9-20) mg/dL Creatinine 0.6 L (0.8-1.5) mg/dL Glucose 204 H (75-100) mg/dL POC Glucose 157 H 120 H (70-105) Calcium 8.0 L (8.4-10.2) mg/dL 11/18/18 11/18/18 11/18/18 Range/Units 07:48 11:41 16:16 Sodium (137-145) mmol/L Chloride (98-107) mmol/L BUN (9-20) mg/dL Creatinine (0.8-1.5) mg/dL Glucose (75-100) mg/dL POC Glucose 212 H 129 H 152 H (70-105) Calcium (8.4-10.2) mg/dL
[2018-11-19] MEDS: HumaLOG SUB-Q SCH ×5 (00:13→21:54)
[2018-11-19] MEDS: PEPCID IV SCH ×3 (00:14→21:53)
[2018-11-19] MEDS: SODIUM CHLORIDE FLUSH SYRINGE 10 ML IV SCH ×3 (00:16→21:55)
[2018-11-19] MEDS: D5W/NS W/KCL 20MEQ 20 MEQ/1,000 ML BAG IV SCH ×2 (04:43→17:29)
[2018-11-19 07:37] LABS: Basophils % (Auto) 0.2 % (0.0-1.8); Eosinophils # (Auto) 0.2 K/mm3 (0.0-0.4); Eosinophils % (Auto) 1.9 % (0.0-4.3); Hematocrit 37.2 % (35.5-45.6); Hemoglobin 11.7 gm/dl (11.8-15.2); Lymphocytes # (Auto) 1.2 K/mm3 (1.2-5.4); Lymphocytes % (Auto) 9.2 % (13.4-35.0); Mean Corpuscular HGB Conc 31 % (32-34); Monocytes # (Auto) 1.5 K/mm3 (0.0-0.8); Monocytes % (Auto) 11.6 % (0.0-7.3); Platelet Count 241 K/mm3 (140-440); Red Blood Count 5.44 M/mm3 (3.65-5.03); Red Cell Distribution Width 14.6 % (13.2-15.2)
[2018-11-19 07:46] LABS: Mean Corpuscular Volume 68 fl (84-94)
[2018-11-19] MEDS: CHLORASEPTIC MM PRN (09:02)
[2018-11-19] MEDS: DILAUDID IV PRN (12:07)
[2018-11-19] MEDS: DUONEB *Not for PRN Use IH SCH ×4 (16:14→21:01)
[2018-11-19] MEDS: ROCEPHIN/NS 1 GM/50 ML 1 GM/50 ML BAG IV SCH (17:30)
--- NOTE | 2018-11-19 17:41 | Progress Note ---
Assessment and Plan Incarcerated right hernia with high-grade small bowel obstruction now developed ileus - improving - s/p bowel resection on 11/13/18 - cont iv fluid, had BM today - cont post-op care with NG suction per GS, cont iv fluid, monitor off iv abx - may need to start TPN if patient remains NPO hypokalemia, replete, and monitor BMP Upper lobe pneumonia, was being treated as outpt - completed abx course, leukocytosis, no fever, repeat Cx, resume abx, cont to follow Dark colored NG suction/GI bleed? 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 Since he started Levaquin for the last 3 days per the pt he has been having nausea vomiting, generalized weakness and decreased appetite. He stated he has not eaten in [address] abdomen/pelvis is concerning for high grade obstruction, GS consulted. CT abdomen/pelvis w contrast: 1. Incarcerated right inguinal hernia resulting in high-grade distal small bowel obstruction. 2. Noninflamed colonic diverticulosis. 3. Calcified gallstones. Subjective Date of service: 11/19/18 Interval history: Patient seen and examined had a large BM this am Family at bedside updated NG suction noted darker in color Objective - Exam Narrative Exam: General appearance: Present: mild distress, other (malnourished) - EENT Eyes: PERRL, EOM intact ENT: hearing intact, clear oral mucosa Ears: bilateral: normal - Neck Neck: supple, normal ROM - Respiratory Respiratory effort: normal Respiratory: bilateral: CTA - Cardiovascular Rhythm: regular Heart Sounds: Present: S1 & S2. Absent: gallop, rub Extremities: pulses intact, No edema, normal color, Full ROM - Gastrointestinal General gastrointestinal: Present: soft, hypoactive bowel sounds, intact surgical dressing on place - no bleeding - Integumentary Integumentary: clear, warm, dry - Musculoskeletal Musculoskeletal: 1, strength equal bilaterally - Neurologic Neurologic: moves all extremities - Psychiatric Psychiatric: memory intact, appropriate mood/affect, intact judgment & insight - Constitutional Vitals: Vital Signs - 12hr 11/19/18 11/19/18 12:07 12:37 Respiratory 18 18 Rate - Labs CBC & Chem 7: 11/20/18 04:19 11/20/18 04:19 Labs: Abnormal lab results 11/18/18 11/19/18 11/19/18 Range/Units 21:16 06:14 08:07 WBC 13.3 H (4.5-11.0) K/mm3 RBC 5.44 H (3.65-5.03) M/mm3 Hgb 11.7 L (11.8-15.2) gm/dl MCV 68 L (84-94) fl MCH 22 L (28-32) pg MCHC 31 L (32-34) % Lymph % (Auto) 9.2 L (13.4-35.0) % [place] % (Auto) 11.6 H (0.0-7.3) % [place] # 1.5 H (0.0-0.8) K/mm3 Seg Neutrophils % 77.1 H (40.0-70.0) % Seg Neutrophils # 10.3 H (1.8-7.7) K/mm3 POC Glucose 112 H 225 H (70-105) 11/19/18 11/19/18 Range/Units 11:55 16:44 WBC (4.5-11.0) K/mm3 RBC (3.65-5.03) M/mm3 Hgb (11.8-15.2) gm/dl MCV (84-94) fl MCH (28-32) pg MCHC (32-34) % Lymph % (Auto) (13.4-35.0) % [place] % (Auto) (0.0-7.3) % [place] # (0.0-0.8) K/mm3 Seg Neutrophils % (40.0-70.0) % Seg Neutrophils # (1.8-7.7) K/mm3 POC Glucose 243 H 195 H (70-105)
--- NOTE | 2018-11-19 20:43 | Progress Note ---
Assessment and Plan POD # 6 Pt status quo. had large BM today confirmed by RN Abd soft. +BS stable d/c ng Selected Entries 11/19/18 19:45 Temperature 96.9 F L Pulse Rate 101 H Respiratory 20 Rate Blood Pressure 148/79 Laboratory Tests 11/19/18 06:14 WBC 13.3 H Hgb 11.7 L Hct 37.2 Objective Vital Signs - 12hr 11/19/18 11/19/18 11/19/18 12:07 12:37 19:45 Temperature 96.9 F L Pulse Rate 101 H Respiratory 18 18 20 Rate Blood Pressure 148/79 O2 Sat by Pulse 95 Oximetry - Labs 11/19/18 06:14 11/18/18 04:25
[2018-11-19] MEDS: PROTONIX IV SCH (21:52)
[2018-11-20] MEDS: ROCEPHIN/NS 1 GM/50 ML 1 GM/50 ML BAG IV SCH ×2 (01:30→14:57)
[2018-11-20 04:39] LABS: Basophils # (Auto) 0.1 K/mm3 (0.0-0.1); Basophils % (Auto) 0.6 % (0.0-1.8); Eosinophils # (Auto) 0.1 K/mm3 (0.0-0.4); Eosinophils % (Auto) 0.8 % (0.0-4.3); Hematocrit 34.1 % (35.5-45.6); Hemoglobin 11.2 gm/dl (11.8-15.2); Lymphocytes # (Auto) 1.2 K/mm3 (1.2-5.4); Lymphocytes % (Auto) 8.1 % (13.4-35.0); Mean Corpuscular HGB Conc 33 % (32-34); Monocytes # (Auto) 1.4 K/mm3 (0.0-0.8); Monocytes % (Auto) 9.5 % (0.0-7.3); Platelet Count 222 K/mm3 (140-440); Red Blood Count 5.04 M/mm3 (3.65-5.03); Red Cell Distribution Width 14.7 % (13.2-15.2)
[2018-11-20 04:48] LABS: Mean Corpuscular Volume 68 fl (84-94)
[2018-11-20 04:54] LABS: BUN/Creatinine Ratio 8; Blood Urea Nitrogen 5 mg/dL (9-20); Calcium 7.9 mg/dL (8.4-10.2); Hemolysis Index 2
[2018-11-20] MEDS: DUONEB *Not for PRN Use IH SCH ×3 (07:35→21:20)
--- NOTE | 2018-11-20 09:11 | XRay Report ---
ABDOMINAL SERIES WITH CHEST X-RAY ONE VIEW HISTORY: Small bowel obstruction FINDINGS: The nasogastric tube has been removed since 11/15/2018. Exploratory laparotomy changes are again noted . There are mildly prominent gas-filled loops of bowel throughout the abdomen which probably represen ts a postoperative ileus. No overwhelming change is demonstrated since the previous exam. No evidence for free air. Single view of the chest demonstrates subtle airspace opacity in the right apical region which is unc hanged since the previous exam. The remainder the lungs are clear. Normal heart size. IMPRESSION: Probable postoperative ileus. Continued follow-up is recommended. Signer Name: Pancho Crow Jr, MD Signed: 11/20/2018 9:06 AM Workstation Name: [id number]
[2018-11-20] MEDS: HumaLOG SUB-Q SCH ×4 (09:22→22:38)
[2018-11-20] MEDS: D5W/NS W/KCL 20MEQ 20 MEQ/1,000 ML BAG IV SCH (09:22)
[2018-11-20] MEDS: SODIUM CHLORIDE FLUSH SYRINGE 10 ML IV SCH (09:23)
[2018-11-20] MEDS: PROTONIX IV SCH ×2 (09:23→22:37)
[2018-11-20] MEDS: KCL 10MEQ/100ML 10 MEQ/100 ML BAG IV SCH ×3 (11:03→16:52)
--- NOTE | 2018-11-20 11:58 | Progress Note ---
Assessment and Plan POD # 7 Pt status quo. +BM this am Abd still hyper-resonant to percussion. hypoactive BS. incision clean and dry decreased bi-basilar breath sounds low K slowly rising wbc abd series - slightly improving ileus pattern but still present imp slowly rising wbc secondary to ? persistent ileus hypokalemia atelectasis rec: keep NPO CPT & aerosol Rx urine & sputum cults. blood cults if + T over 101.5 PT for ambulation K supplementation clinically stable continue present care Selected Entries 11/20/18 07:43 Temperature 98.3 F Respiratory 20 Rate Blood Pressure 134/79 Laboratory Tests 11/19/18 11/20/18 11/20/18 06:14 04:19 04:19 WBC 13.3 H 14.5 H Potassium 3.1 L Objective Vital Signs - 12hr 11/20/18 11/20/18 11/20/18 00:39 04:44 07:37 Temperature 97.4 F L 97.9 F Pulse Rate 78 94 H Pulse Rate [ 86 Anterior] Respiratory 20 20 Rate Respiratory 18 Rate [Anterior] Blood Pressure 135/80 120/69 O2 Sat by Pulse 91 96 Oximetry 11/20/18 11/20/18 07:38 07:43 Temperature 98.3 F Pulse Rate 93 H Pulse Rate [ Anterior] Respiratory 20 Rate Respiratory Rate [Anterior] Blood Pressure 134/79 O2 Sat by Pulse 95 98 Oximetry - Labs 11/20/18 04:19 11/20/18 04:19 Diabetes panel 11/20/18 Range/Units 04:19 Sodium 139 (137-145) mmol/L Potassium 3.1 L (3.6-5.0) mmol/L Chloride 97.9 L (98-107) mmol/L Carbon Dioxide 33 H (22-30) mmol/L BUN 5 L (9-20) mg/dL Creatinine 0.6 L (0.8-1.5) mg/dL Glucose 226 H (75-100) mg/dL Calcium 7.9 L (8.4-10.2) mg/dL Calcium panel 11/20/18 Range/Units 04:19 Calcium 7.9 L (8.4-10.2) mg/dL Pituitary panel 11/20/18 Range/Units 04:19 Sodium 139 (137-145) mmol/L Potassium 3.1 L (3.6-5.0) mmol/L Chloride 97.9 L (98-107) mmol/L Carbon Dioxide 33 H (22-30) mmol/L BUN 5 L (9-20) mg/dL Creatinine 0.6 L (0.8-1.5) mg/dL Glucose 226 H (75-100) mg/dL Calcium 7.9 L (8.4-10.2) mg/dL Adrenal panel 11/20/18 Range/Units 04:19 Sodium 139 (137-145) mmol/L Potassium 3.1 L (3.6-5.0) mmol/L Chloride 97.9 L (98-107) mmol/L Carbon Dioxide 33 H (22-30) mmol/L BUN 5 L (9-20) mg/dL Creatinine 0.6 L (0.8-1.5) mg/dL Glucose 226 H (75-100) mg/dL Calcium 7.9 L (8.4-10.2) mg/dL
[2018-11-20] MEDS: PROVENTIL IH SCH ×2 (13:59→15:09)
--- NOTE | 2018-11-20 14:24 | Progress Note ---
Assessment and Plan Incarcerated right hernia with high-grade small bowel obstruction now developed ileus - improving - s/p bowel resection on 11/13/18 - cont iv fluid, had BM yesterdar - cont post-op care per GS, cont iv fluid, off NG suction today - cont NPO as abdomen still distended hypokalemia, replete, and monitor BMP Upper lobe pneumonia, was being treated as outpt - completed abx course, leukocytosis, no fever, repeat Cx, resumed abx, cont to follow Dark colored NG suction/GI bleed? 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 Since he started Levaquin for the last 3 days per the pt he has been having nausea vomiting, generalized weakness and decreased appetite. He stated he has not eaten in [address] abdomen/pelvis is concerning for high grade obstruction, GS consulted. CT abdomen/pelvis w contrast: 1. Incarcerated right inguinal hernia resulting in high-grade distal small bowel obstruction. 2. Noninflamed colonic diverticulosis. 3. Calcified gallstones. Subjective Date of service: 11/20/18 Interval history: Patient seen and examined had a large BM yesterday Family at bedside updated NG tube removed Abdomen still distended, remained NPO Objective - Exam Narrative Exam: General appearance: Present: mild distress, other (malnourished) - EENT Eyes: PERRL, EOM intact ENT: hearing intact, clear oral mucosa Ears: bilateral: normal - Neck Neck: supple, normal ROM - Respiratory Respiratory effort: normal Respiratory: bilateral: CTA - Cardiovascular Rhythm: regular Heart Sounds: Present: S1 & S2. Absent: gallop, rub Extremities: pulses intact, No edema, normal color, Full ROM - Gastrointestinal General gastrointestinal: Present: soft, hypoactive bowel sounds, intact surg ical dressing on place - no bleeding - Integumentary Integumentary: clear, warm, dry - Musculoskeletal Musculoskeletal: 1, strength equal bilaterally - Neurologic Neurologic: moves all extremities - Psychiatric Psychiatric: memory intact, appropriate mood/affect, intact judgment & insight - Constitutional Vitals: Vital Signs - 12hr 11/20/18 11/20/18 11/20/18 04:44 07:37 07:38 Temperature 97.9 F Pulse Rate 94 H Pulse Rate [ 86 Anterior] Respiratory 20 Rate Respiratory 18 Rate [Anterior] Blood Pressure 120/69 O2 Sat by Pulse 96 95 Oximetry 11/20/18 11/20/18 11/20/18 07:43 12:00 13:58 Temperature 98.3 F 98.1 F Pulse Rate 93 H 75 Pulse Rate [ 89 Anterior] Respiratory 20 19 Rate Respiratory 18 Rate [Anterior] Blood Pressure 134/79 127/70 O2 Sat by Pulse 98 98 Oximetry - Labs CBC & Chem 7: 11/21/18 06:04 11/21/18 06:04 Labs: Abnormal lab results 11/19/18 11/19/18 11/20/18 Range/Units 16:44 20:51 04:19 WBC 14.5 H (4.5-11.0) K/mm3 RBC 5.04 H (3.65-5.03) M/mm3 Hgb 11.2 L (11.8-15.2) gm/dl Hct 34.1 L (35.5-45.6) % MCV 68 L (84-94) fl MCH 22 L (28-32) pg Lymph % (Auto) 8.1 L (13.4-35.0) % [place] % (Auto) 9.5 H (0.0-7.3) % [place] # 1.4 H (0.0-0.8) K/mm3 Seg Neutrophils % 81.0 H (40.0-70.0) % Seg Neutrophils # 11.8 H (1.8-7.7) K/mm3 Potassium (3.6-5.0) mmol/L Chloride (98-107) mmol/L Carbon Dioxide (22-30) mmol/L BUN (9-20) mg/dL Creatinine (0.8-1.5) mg/dL Glucose (75-100) mg/dL POC Glucose 195 H 179 H (70-105) Calcium (8.4-10.2) mg/dL 11/20/18 11/20/18 11/20/18 Range/Units 04:19 07:55 12:05 WBC (4.5-11.0) K/mm3 RBC (3.65-5.03) M/mm3 Hgb (11.8-15.2) gm/dl Hct (35.5-45.6) % MCV (84-94) fl MCH (28-32) pg Lymph % (Auto) (13.4-35.0) % [place] % (Auto) (0.0-7.3) % [place] # (0.0-0.8) K/mm3 Seg Neutrophils % (40.0-70.0) % Seg Neutrophils # (1.8-7.7) K/mm3 Potassium 3.1 L (3.6-5.0) mmol/L Chloride 97.9 L (98-107) mmol/L Carbon Dioxide 33 H (22-30) mmol/L BUN 5 L (9-20) mg/dL Creatinine 0.6 L (0.8-1.5) mg/dL Glucose 226 H (75-100) mg/dL POC Glucose 218 H 121 H (70-105) Calcium 7.9 L (8.4-10.2) mg/dL
[2018-11-21] MEDS: ROCEPHIN/NS 1 GM/50 ML 1 GM/50 ML BAG IV SCH ×2 (04:25→15:50)
[2018-11-21 06:38] LABS: Basophils # (Auto) 0.1 K/mm3 (0.0-0.1); Basophils % (Auto) 0.5 % (0.0-1.8); Eosinophils # (Auto) 0.3 K/mm3 (0.0-0.4); Eosinophils % (Auto) 3.3 % (0.0-4.3); Hematocrit 34.7 % (35.5-45.6); Lymphocytes # (Auto) 1.3 K/mm3 (1.2-5.4); Lymphocytes % (Auto) 13.6 % (13.4-35.0); Mean Corpuscular HGB Conc 32 % (32-34); Mean Corpuscular Volume 69 fl (84-94); Monocytes # (Auto) 0.9 K/mm3 (0.0-0.8); Monocytes % (Auto) 9.5 % (0.0-7.3); Platelet Count 248 K/mm3 (140-440); Red Blood Count 5.03 M/mm3 (3.65-5.03); Red Cell Distribution Width 14.6 % (13.2-15.2)
[2018-11-21 07:02] LABS: BUN/Creatinine Ratio 11; Blood Urea Nitrogen 8 mg/dL (9-20); Hemolysis Index 2
[2018-11-21] MEDS: SODIUM CHLORIDE FLUSH SYRINGE 10 ML IV SCH ×3 (08:06→22:17)
[2018-11-21] MEDS: HumaLOG SUB-Q SCH ×4 (08:30→22:28)
[2018-11-21] MEDS: D5W/NS W/KCL 20MEQ 20 MEQ/1,000 ML BAG IV SCH (09:44)
[2018-11-21] MEDS: PROTONIX IV SCH ×2 (09:44→22:16)
--- NOTE | 2018-11-21 11:59 | Progress Note ---
Assessment and Plan POD # 7 Pt feeling well. sitting in chair. +BM Abd soft. + BS stable resolving ileus improved K attempt cl liq diet Selected Entries 11/21/18 07:42 Temperature 99.1 F Pulse Rate 76 Respiratory 18 Rate Blood Pressure 126/71 Laboratory Tests 11/20/18 11/21/18 11/21/18 04:19 06:04 06:04 WBC 9.4 Potassium 3.1 L 3.3 L Objective Vital Signs - 12hr 11/21/18 11/21/18 11/21/18 00:24 05:31 07:42 Temperature 97.4 F L 97.6 F 99.1 F Pulse Rate 82 88 76 Respiratory 17 17 18 Rate Blood Pressure 126/71 Blood Pressure 130/68 122/76 [Right] O2 Sat by Pulse 97 92 97 Oximetry 11/21/18 11:15 Temperature 97.6 F Pulse Rate 68 Respiratory 18 Rate Blood Pressure 139/70 Blood Pressure [Right] O2 Sat by Pulse 98 Oximetry - Labs 11/21/18 06:04 11/21/18 06:04 Diabetes panel 11/21/18 Range/Units 06:04 Sodium 140 (137-145) mmol/L Potassium 3.3 L (3.6-5.0) mmol/L Chloride 96.9 L (98-107) mmol/L Carbon Dioxide 33 H (22-30) mmol/L BUN 8 L (9-20) mg/dL Creatinine 0.7 L (0.8-1.5) mg/dL Glucose 189 H (75-100) mg/dL Calcium 8.0 L (8.4-10.2) mg/dL Calcium panel 11/21/18 Range/Units 06:04 Calcium 8.0 L (8.4-10.2) mg/dL Pituitary panel 11/21/18 Range/Units 06:04 Sodium 140 (137-145) mmol/L Potassium 3.3 L (3.6-5.0) mmol/L Chloride 96.9 L (98-107) mmol/L Carbon Dioxide 33 H (22-30) mmol/L BUN 8 L (9-20) mg/dL Creatinine 0.7 L (0.8-1.5) mg/dL Glucose 189 H (75-100) mg/dL Calcium 8.0 L (8.4-10.2) mg/dL Adrenal panel 11/21/18 Range/Units 06:04 Sodium 140 (137-145) mmol/L Potassium 3.3 L (3.6-5.0) mmol/L Chloride 96.9 L (98-107) mmol/L Carbon Dioxide 33 H (22-30) mmol/L BUN 8 L (9-20) mg/dL Creatinine 0.7 L (0.8-1.5) mg/dL Glucose 189 H (75-100) mg/dL Calcium 8.0 L (8.4-10.2) mg/dL
--- NOTE | 2018-11-21 13:48 | Consultation ---
History of Present Illness Consult date: 11/21/18 Requesting physician: RAFAEL IBRAHIM Reason for consult: pneumonia History of present illness: PULMONARY/CCM CONSULT NOTE (Full dictation # [id number]) Please see dictated notes for full details Medications and Allergies Allergies Allergy/AdvReac Type Severity Reaction Status Date / Time Penicillins Allergy Unknown-over Verified 06/25/18 17:28 45 years ago Home Medications Medication Instructions Recorded Confirmed Last Taken Type AtorvaSTATin [Lipitor] 10 mg PO QHS 01/31/18 11/12/18 06/26/18 History Losartan Potassium [Cozaar] 50 mg PO DAILY 01/31/18 11/12/18 06/26/18 History Umeclidinium [place] [Incruse 1 puff IH QDAY 06/25/18 11/13/18 06/26/18 History Ellipta] metFORMIN [Glucophage] 850 mg PO BID 06/25/18 11/12/18 06/26/18 History Fluticasone/Vilanterol [Breo 1 each IH DAILY 11/12/18 11/13/18 Unknown History Ellipta 100-25 Mcg INH] Active Meds: Active Medications Acetaminophen (Tylenol) 650 mg PO Q4H PRN PRN Reason: Pain MILD(1-3)/Fever >100.5/QUINTEROS Albuterol (Proventil) 2.5 mg IH Q8HRT [facility] Last Admin: 11/20/18 15:09 Dose: Not Given Documented by: Albuterol/Ipratropium (Duoneb *Not For Prn Use*) 1 ampul IH TIDRT [facility] Last Admin: 11/20/18 21:20 Dose: 1 ampul Documented by: Dextrose (D50w (25gm) Syringe) 50 ml IV PRN PRN PRN Reason: Hypoglycemia Hydralazine HCl (Apresoline) 10 mg IV Q4HR PRN PRN Reason: Blood Pressure Hydromorphone HCl (Dilaudid) 2 mg IV Q4H PRN PRN Reason: Pain , Severe (7-10) Last Admin: 11/19/18 12:07 Dose: 2 mg Documented by: Potassium Chloride/Dextrose/Sod Cl (D5w/Ns W/Kcl 20meq) 20 meq in 1,000 mls @ 75 mls/hr IV DIRECT [facility] Last Admin: 11/21/18 09:44 Dose: 75 mls/hr Documented by: Ceftriaxone Sodium (Rocephin/Ns 1 Gm/50 Ml) 1 gm in 50 mls @ 100 mls/hr IV Q12H [facility]; Protocol Last Admin: 11/21/18 04:25 Dose: 100 mls/hr Documented by: Insulin Human Lispro (Humalog) 0 unit SUB-Q ACHS [facility]; Protocol Last Admin: 11/21/18 11:36 Dose: 2 unit Documented by: Morphine Sulfate (Morphine) 4 mg IV Q3H PRN PRN Reason: Pain, Moderate (4-6) Last Admin: 11/14/18 01:57 Dose: 4 mg Documented by: Ondansetron HCl (Zofran) 4 mg IV Q8H PRN PRN Reason: Nausea And Vomiting Pantoprazole Sodium (Protonix) 40 mg IV BID [facility] Last Admin: 11/21/18 09:44 Dose: 40 mg Documented by: Phenol (Chloraseptic) 1 spray MM PRN PRN PRN Reason: Sore Throat Last Admin: 11/19/18 09:02 Dose: 1 spray Documented by: Sodium Chloride (Sodium Chloride Flush Syringe 10 Ml) 10 ml IV BID [facility] Last Admin: 11/21/18 11:29 Dose: 10 ml Documented by: Sodium Chloride (Sodium Chloride Flush Syringe 10 Ml) 10 ml IV PRN PRN PRN Reason: LINE FLUSH Physical Examination Vital signs: Vital Signs Temp Pulse Resp BP Pulse Ox 98.2 F 95 H 24 139/83 94 11/12/18 15:30 11/12/18 15:30 11/12/18 15:30 11/12/18 15:30 11/12/18 15:30 Results - Laboratory Findings CBC and BMP: 11/22/18 06:02 11/22/18 06:02 Abnormal lab findings: Abnormal Labs 11/12/18 11/12/18 11/12/18 16:07 16:07 21:29 WBC RBC 6.29 H Hgb Hct MCV 69 L MCH 23 L MCHC RDW 15.4 H Lymph % (Auto) 9.7 L Kidder % (Auto) 14.0 H Lymph # 0.8 L Kidder # 1.2 H Seg Neutrophils % 76.1 H Seg Neuts % (Manual) Lymphocytes % (Manual) Monocytes % (Manual) Seg Neutrophils # Lymphocytes # (Manual) Sodium 135 L Potassium Chloride 91.3 L Carbon Dioxide BUN 31 H Creatinine Glucose 228 H POC Glucose Lactic Acid 3.10 H* Calcium Total Protein Albumin Lipase 11 L 11/12/18 11/13/18 11/13/18 21:30 04:51 04:51 WBC RBC 5.68 H Hgb Hct MCV 68 L MCH 22 L MCHC RDW Lymph % (Auto) Kidder % (Auto) Lymph # Kidder # Seg Neutrophils % Seg Neuts % (Manual) Lymphocytes % (Manual) Monocytes % (Manual) Seg Neutrophils # Lymphocytes # (Manual) Sodium 136 L Potassium Chloride 97.5 L Carbon Dioxide BUN 27 H Creatinine Glucose 164 H POC Glucose 211 H Lactic Acid Calcium Total Protein Albumin Lipase 11/13/18 11/13/18 11/13/18 09:09 09:31 13:10 WBC RBC Hgb Hct MCV MCH MCHC RDW Lymph % (Auto) Kidder % (Auto) Lymph # Kidder # Seg Neutrophils % Seg Neuts % (Manual) Lymphocytes % (Manual) Monocytes % (Manual) Seg Neutrophils # Lymphocytes # (Manual) Sodium Potassium Chloride Carbon Dioxide BUN Creatinine Glucose POC Glucose 169 H 224 H Lactic Acid 2.10 H* Calcium Total Protein Albumin Lipase 11/13/18 11/13/18 11/14/18 17:34 21:13 00:01 WBC RBC Hgb Hct MCV MCH MCHC RDW Lymph % (Auto) Kidder % (Auto) Lymph # Kidder # Seg Neutrophils % Seg Neuts % (Manual) Lymphocytes % (Manual) Monocytes % (Manual) Seg Neutrophils # Lymphocytes # (Manual) Sodium Potassium Chloride Carbon Dioxide BUN Creatinine Glucose POC Glucose 217 H 166 H 180 H Lactic Acid Calcium Total Protein Albumin Lipase 11/14/18 11/14/18 11/14/18 05:15 05:15 13:10 WBC RBC 6.10 H Hgb Hct MCV 70 L MCH 22 L MCHC RDW Lymph % (Auto) 2.2 L Kidder % (Auto) 9.5 H Lymph # 0.2 L Kidder # 0.9 H Seg Neutrophils % 88.2 H Seg Neuts % (Manual) Lymphocytes % (Manual) Monocytes % (Manual) Seg Neutrophils # 8.0 H Lymphocytes # (Manual) Sodium Potassium Chloride Carbon Dioxide BUN Creatinine Glucose 263 H POC Glucose 292 H Lactic Acid Calcium 8.0 L Total Protein 5.9 L D Albumin 3.1 L Lipase 11/14/18 11/15/18 11/15/18 16:14 08:38 11:23 WBC RBC Hgb Hct MCV MCH MCHC RDW Lymph % (Auto) Kidder % (Auto) Lymph # Kidder # Seg Neutrophils % Seg Neuts % (Manual) Lymphocytes % (Manual) Monocytes % (Manual) Seg Neutrophils # Lymphocytes # (Manual) Sodium 136 L Potassium 3.4 L D Chloride Carbon Dioxide BUN Creatinine 0.7 L Glucose 212 H POC Glucose 245 H 226 H Lactic Acid Calcium 8.1 L Total Protein Albumin Lipase 11/15/18 11/15/18 11/16/18 17:53 22:13 06:20 WBC RBC Hgb Hct MCV MCH MCHC RDW Lymph % (Auto) Kidder % (Auto) Lymph # Kidder # Seg Neutrophils % Seg Neuts % (Manual) Lymphocytes % (Manual) Monocytes % (Manual) Seg Neutrophils # Lymphocytes # (Manual) Sodium 136 L Potassium 3.4 L Chloride 96.6 L Carbon Dioxide BUN 8 L Creatinine 0.6 L Glucose 209 H POC Glucose 180 H 161 H Lactic Acid Calcium 8.1 L Total Protein Albumin Lipase 11/16/18 11/16/18 11/16/18 08:09 11:38 16:09 WBC RBC Hgb Hct MCV MCH MCHC RDW Lymph % (Auto) Kidder % (Auto) Lymph # Kidder # Seg Neutrophils % Seg Neuts % (Manual) Lymphocytes % (Manual) Monocytes % (Manual) Seg Neutrophils # Lymphocytes # (Manual) Sodium Potassium Chloride Carbon Dioxide BUN Creatinine Glucose POC Glucose 217 H 189 H 106 H Lactic Acid Calcium Total Protein Albumin Lipase 11/16/18 11/17/18 11/17/18 21:58 06:17 06:17 WBC RBC 5.32 H Hgb Hct MCV 68 L MCH 23 L MCHC RDW Lymph % (Auto) Kidder % (Auto) Lymph # Kidder # Seg Neutrophils % Seg Neuts % (Manual) 74.0 H Lymphocytes % (Manual) 12.0 L Monocytes % (Manual) 11.0 H Seg Neutrophils # Lymphocytes # (Manual) 0.7 L Sodium 136 L Potassium Chloride 96.3 L Carbon Dioxide BUN Creatinine 0.6 L Glucose 202 H POC Glucose 172 H Lactic Acid Calcium 8.0 L Total Protein Albumin Lipase 11/17/18 11/17/18 11/17/18 07:14 11:34 16:10 WBC RBC Hgb Hct MCV MCH MCHC RDW Lymph % (Auto) Kidder % (Auto) Lymph # Kidder # Seg Neutrophils % Seg Neuts % (Manual) Lymphocytes % (Manual) Monocytes % (Manual) Seg Neutrophils # Lymphocytes # (Manual) Sodium Potassium Chloride Carbon Dioxide BUN Creatinine Glucose POC Glucose 189 H 159 H 157 H Lactic Acid Calcium Total Protein Albumin Lipase 11/17/18 11/18/18 11/18/18 21:40 04:25 07:48 WBC RBC Hgb Hct MCV MCH MCHC RDW Lymph % (Auto) Kidder % (Auto) Lymph # Kidder # Seg Neutrophils % Seg Neuts % (Manual) Lymphocytes % (Manual) Monocytes % (Manual) Seg Neutrophils # Lymphocytes # (Manual) Sodium 135 L Potassium Chloride 95.8 L Carbon Dioxide BUN 8 L Creatinine 0.6 L Glucose 204 H POC Glucose 120 H 212 H Lactic Acid Calcium 8.0 L Total Protein Albumin Lipase 11/18/18 11/18/18 11/18/18 11:41 16:16 21:16 WBC RBC Hgb Hct MCV MCH MCHC RDW Lymph % (Auto) Kidder % (Auto) Lymph # Kidder # Seg Neutrophils % Seg Neuts % (Manual) Lymphocytes % (Manual) Monocytes % (Manual) Seg Neutrophils # Lymphocytes # (Manual) Sodium Potassium Chloride Carbon Dioxide BUN Creatinine Glucose POC Glucose 129 H 152 H 112 H Lactic Acid Calcium Total Protein Albumin Lipase 11/19/18 11/19/18 11/19/18 06:14 08:07 11:55 WBC 13.3 H RBC 5.44 H Hgb 11.7 L Hct MCV 68 L MCH 22 L MCHC 31 L RDW Lymph % (Auto) 9.2 L Kidder % (Auto) 11.6 H Lymph # Kidder # 1.5 H Seg Neutrophils % 77.1 H Seg Neuts % (Manual) Lymphocytes % (Manual) Monocytes % (Manual) Seg Neutrophils # 10.3 H Lymphocytes # (Manual) Sodium Potassium Chloride Carbon Dioxide BUN Creatinine Glucose POC Glucose 225 H 243 H Lactic Acid Calcium Total Protein Albumin Lipase 11/19/18 11/19/18 11/20/18 16:44 20:51 04:19 WBC 14.5 H RBC 5.04 H Hgb 11.2 L Hct 34.1 L MCV 68 L MCH 22 L MCHC RDW Lymph % (Auto) 8.1 L Kidder % (Auto) 9.5 H Lymph # Kidder # 1.4 H Seg Neutrophils % 81.0 H Seg Neuts % (Manual) Lymphocytes % (Manual) Monocytes % (Manual) Seg Neutrophils # 11.8 H Lymphocytes # (Manual) Sodium Potassium Chloride Carbon Dioxide BUN Creatinine Glucose POC Glucose 195 H 179 H Lactic Acid Calcium Total Protein Albumin Lipase 11/20/18 11/20/18 11/20/18 04:19 07:55 12:05 WBC RBC Hgb Hct MCV MCH MCHC RDW Lymph % (Auto) Kidder % (Auto) Lymph # Kidder # Seg Neutrophils % Seg Neuts % (Manual) Lymphocytes % (Manual) Monocytes % (Manual) Seg Neutrophils # Lymphocytes # (Manual) Sodium Potassium 3.1 L Chloride 97.9 L Carbon Dioxide 33 H BUN 5 L Creatinine 0.6 L Glucose 226 H POC Glucose 218 H 121 H Lactic Acid Calcium 7.9 L Total Protein Albumin Lipase 11/20/18 11/20/18 11/21/18 16:59 20:49 06:04 WBC RBC Hgb 11.0 L Hct 34.7 L MCV 69 L MCH 22 L MCHC RDW Lymph % (Auto) Kidder % (Auto) 9.5 H Lymph # Kidder # 0.9 H Seg Neutrophils % 73.1 H Seg Neuts % (Manual) Lymphocytes % (Manual) Monocytes % (Manual) Seg Neutrophils # Lymphocytes # (Manual) Sodium Potassium Chloride Carbon Dioxide BUN Creatinine Glucose POC Glucose 117 H 118 H Lactic Acid Calcium Total Protein Albumin Lipase 11/21/18 11/21/18 11/21/18 06:04 07:51 11:40 WBC RBC Hgb Hct MCV MCH MCHC RDW Lymph % (Auto) Kidder % (Auto) Lymph # Kidder # Seg Neutrophils % Seg Neuts % (Manual) Lymphocytes % (Manual) Monocytes % (Manual) Seg Neutrophils # Lymphocytes # (Manual) Sodium Potassium 3.3 L Chloride 96.9 L Carbon Dioxide 33 H BUN 8 L Creatinine 0.7 L Glucose 189 H POC Glucose 191 H 221 H Lactic Acid Calcium 8.0 L Total Protein Albumin Lipase
[2018-11-21] MEDS: DUONEB *Not for PRN Use IH SCH ×3 (13:50→21:46)
[2018-11-21] MEDS: PROVENTIL IH SCH ×3 (13:51→17:07)
--- NOTE | 2018-11-21 14:24 | Progress Note ---
Assessment and Plan Incarcerated right hernia with high-grade small bowel obstruction now developed ileus - improving - s/p bowel resection on 11/13/18 - cont iv fluid, had BM - cont post-op care per GS, cont iv fluid, off NG suction - started on clear liquid diet today hypokalemia, replete, and monitor BMP Right Upper lobe pneumonia, POA - was being treated as outpt - completed abx course in this admission with rocephin - will consult pulmonary for persistent consolidation and leukocytosis - sputum Cx ordered leukocytosis, no fever, repeat blood Cx negative, resumed abx, cont to follow Dark colored NG suction/GI bleed? 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 Pierce started on Levaquin for PNA. Since he started Levaquin for the last 3 days per the pt he has been having nausea vomiting, generalized weakness and decreased appetite. He stated he has not eaten in [address] abdomen/pelvis is concerning for high grade obstruction, GS consulted. CT abdomen/pelvis w contrast: 1. Incarcerated right inguinal hernia resulting in high-grade distal small bowel obstruction. 2. Noninflamed colonic diverticulosis. 3. Calcified gallstones. Subjective Date of service: 11/21/18 Interval history: Patient seen and examined having BM Family at bedside updated off NG tube plan to start clear liquid diet Objective - Exam Narrative Exam: General appearance: Present: mild distress, other (malnourished) - EENT Eyes: PERRL, EOM intact ENT: hearing intact, clear oral mucosa Ears: bilateral: normal - Neck Neck: supple, normal ROM - Respiratory Respiratory effort: normal Respiratory: bilateral: CTA - Cardiovascular Rhythm: regular Heart Sounds: Present: S1 & S2. Absent: gallop, rub Extremities: pulses intact, No edema, normal color, Full ROM - Gastrointestinal General gastrointestinal: Present: soft, hypoactive bowel sounds, intact surgical dressing on place - no bleeding - Integumentary Integumentary: clear, warm, dry - Musculoskeletal Musculoskeletal: 1, strength equal bilaterally - Neurologic Neurologic: moves all extremities - Psychiatric Psychiatric: memory intact, appropriate mood/affect, intact judgment & insight - Constitutional Vitals: Vital Signs - 12hr 11/21/18 11/21/18 11/21/18 05:31 07:42 10:00 Temperature 97.6 F 99.1 F Pulse Rate 88 76 Pulse Rate [ Anterior] Respiratory 17 18 Rate Respiratory Rate [Anterior] Blood Pressure 126/71 Blood Pressure 122/76 [Right] O2 Sat by Pulse 92 97 99 Oximetry 11/21/18 11/21/18 11:15 13:50 Temperature 97.6 F Pulse Rate 68 Pulse Rate [ 71 Anterior] Respiratory 18 Rate Respiratory 18 Rate [Anterior] Blood Pressure 139/70 Blood Pressure [Right] O2 Sat by Pulse 98 Oximetry - Labs CBC & Chem 7: 11/22/18 06:02 11/22/18 06:02 Labs: Abnormal lab results 11/20/18 11/20/18 11/21/18 Range/Units 16:59 20:49 06:04 Hgb 11.0 L (11.8-15.2) gm/dl Hct 34.7 L (35.5-45.6) % MCV 69 L (84-94) fl MCH 22 L (28-32) pg Emanuel % (Auto) 9.5 H (0.0-7.3) % Emanuel # 0.9 H (0.0-0.8) K/mm3 Seg Neutrophils % 73.1 H (40.0-70.0) % Potassium (3.6-5.0) mmol/L Chloride (98-107) mmol/L Carbon Dioxide (22-30) mmol/L BUN (9-20) mg/dL Creatinine (0.8-1.5) mg/dL Glucose (75-100) mg/dL POC Glucose 117 H 118 H (70-105) Calcium (8.4-10.2) mg/dL 11/21/18 11/21/18 11/21/18 Range/Units 06:04 07:51 11:40 Hgb (11.8-15.2) gm/dl Hct (35.5-45.6) % MCV (84-94) fl MCH (28-32) pg Emanuel % (Auto) (0.0-7.3) % Emanuel # (0.0-0.8) K/mm3 Seg Neutrophils % (40.0-70.0) % Potassium 3.3 L (3.6-5.0) mmol/L Chloride 96.9 L (98-107) mmol/L Carbon Dioxide 33 H (22-30) mmol/L BUN 8 L (9-20) mg/dL Creatinine 0.7 L (0.8-1.5) mg/dL Glucose 189 H (75-100) mg/dL POC Glucose 191 H 221 H (70-105) Calcium 8.0 L (8.4-10.2) mg/dL
[2018-11-21 19:45] LABS: Bilirubin,Urine NEG (Negative); Blood,Urine NEG (Negative); Color,Urine Straw (Yellow); Mucus,Urine FEW /HPF; Protein,Urine <15 mg/dL mg/dL (Negative); Urobilinogen,Urine < 2.0 mg/dL (<2.0); WBC,Urine < 1.0 /HPF (0.0-6.0)
[2018-11-21] MEDS ORDERED: PROVENTIL IH PRN (21:49)
[2018-11-22] MEDS: ROCEPHIN/NS 1 GM/50 ML 1 GM/50 ML BAG IV SCH (02:29)
[2018-11-22] MEDS: D5W/NS W/KCL 20MEQ 20 MEQ/1,000 ML BAG IV SCH (02:38)
[2018-11-22] MEDS ORDERED: VANCOMYCIN 750 MG in NACL 0.9% 250ML 250 ML IV SCH (06:00)
[2018-11-22 06:19] LABS: Basophils # (Auto) 0.1 K/mm3 (0.0-0.1); Basophils % (Auto) 0.9 % (0.0-1.8); Eosinophils # (Auto) 0.2 K/mm3 (0.0-0.4); Eosinophils % (Auto) 1.8 % (0.0-4.3); Hematocrit 37.8 % (35.5-45.6); Hemoglobin 12.1 gm/dl (11.8-15.2); Lymphocytes # (Auto) 1.5 K/mm3 (1.2-5.4); Lymphocytes % (Auto) 14.6 % (13.4-35.0); Mean Corpuscular HGB Conc 32 % (32-34); Monocytes % (Auto) 9.3 % (0.0-7.3); Platelet Count 304 K/mm3 (140-440); Red Blood Count 5.57 M/mm3 (3.65-5.03); Red Cell Distribution Width 14.5 % (13.2-15.2)
[2018-11-22 06:21] LABS: Mean Corpuscular Volume 68 fl (84-94)
[2018-11-22 06:31] LABS: BUN/Creatinine Ratio 10; Blood Urea Nitrogen 6 mg/dL (9-20); Calcium 8.4 mg/dL (8.4-10.2); Hemolysis Index 7
[2018-11-22] MEDS: HumaLOG SUB-Q SCH ×4 (07:20→22:00)
[2018-11-22] MEDS: DUONEB *Not for PRN Use IH SCH ×3 (07:30→21:23)
--- NOTE | 2018-11-22 11:54 | Progress Note ---
Assessment and Plan Right Upper lobe pneumonia, POA - was being treated as outpt - completed abx course in this admission with rocephin - Consulted pulmonary for persistent consolidation and increased white count - sputum Cx ordered - growing MRSA, blood cx negative - start on vancomycin, consult ID for abx recommendation - contact isolation leukocytosis - likely from MRSA PNA - no fever, repeat blood Cx negative, sputum growing MRSA Incarcerated right hernia with high-grade small bowel obstruction now developed ileus - improving - s/p bowel resection on 11/13/18 - cont iv fluid, had BM - cont post-op care per GS, cont iv fluid, off NG suction - started on clear liquid diet - advance as tolerated hypokalemia, replete, and monitor BMP Dark colored NG suction/GI bleed? 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 Since he started Levaquin for the last 3 days per the pt he has been having nausea vomiting, generalized weakness and decreased appetite. He stated he has not eaten in [address] abdomen/pelvis is concerning for high grade obstruction, GS consulted. CT abdomen/pelvis w contrast: 1. Incarcerated right inguinal hernia resulting in high-grade distal small bowel obstruction. 2. Noninflamed colonic diverticulosis. 3. Calcified gallstones. Subjective Date of service: 11/22/18 Interval history: Patient seen and examined having BM Family at bedside updated off NG tube, tolerating clear liquid diet Objective - Exam Narrative Exam: General appearance: Present: mild distress, other (malnourished) - EENT Eyes: PERRL, EOM intact ENT: hearing intact, clear oral mucosa Ears: bilateral: normal - Neck Neck: supple, normal ROM - Respiratory Respiratory effort: normal Respiratory: bilateral: CTA - Cardiovascular Rhythm: regular Heart Sounds: Present: S1 & S2. Absent: gallop, rub Extremities: pulses intact, No edema, normal color, Full ROM - Gastrointestinal General gastrointestinal: Present: soft, hypoactive bowel sounds, intact surgical dressing on place - no bleeding - Integumentary Integumentary: clear, warm, dry - Musculoskeletal Musculoskeletal: 1, strength equal bilaterally - Neurologic Neurologic: moves all extremities - Psychiatric Psychiatric: memory intact, appropriate mood/affect, intact judgment & insight - Constitutional Vitals: Vital Signs - 12hr 11/21/18 11/22/18 11/22/18 23:56 05:05 07:30 Temperature 97.5 F L 97.7 F Pulse Rate 80 75 Pulse Rate [ 74 Anterior] Respiratory 18 17 Rate Respiratory 18 Rate [Anterior] Blood Pressure 131/68 141/77 O2 Sat by Pulse 97 97 98 Oximetry - Labs CBC & Chem 7: 11/22/18 06:02 11/22/18 06:02 Labs: Abnormal lab results 11/21/18 11/21/18 11/21/18 Range/Units 16:20 21:07 Unknown RBC (3.65-5.03) M/mm3 MCV (84-94) fl MCH (28-32) pg Republic % (Auto) (0.0-7.3) % Republic # (0.0-0.8) K/mm3 Seg Neutrophils % (40.0-70.0) % Chloride (98-107) mmol/L Carbon Dioxide (22-30) mmol/L BUN (9-20) mg/dL Creatinine (0.8-1.5) mg/dL Glucose (75-100) mg/dL POC Glucose 179 H 253 H (70-105) Urine pH 8.0 H (5.0-7.0) 11/22/18 11/22/18 11/22/18 Range/Units 06:02 06:02 07:23 RBC 5.57 H (3.65-5.03) M/mm3 MCV 68 L (84-94) fl MCH 22 L (28-32) pg Republic % (Auto) 9.3 H (0.0-7.3) % Republic # 1.0 H (0.0-0.8) K/mm3 Seg Neutrophils % 73.4 H (40.0-70.0) % Chloride 97.7 L (98-107) mmol/L Carbon Dioxide 31 H (22-30) mmol/L BUN 6 L (9-20) mg/dL Creatinine 0.6 L (0.8-1.5) mg/dL Glucose 161 H (75-100) mg/dL POC Glucose 165 H (70-105) Urine pH (5.0-7.0)
[2018-11-22] MEDS ORDERED: VANCOMYCIN/NS 1 GM/250 ML 1 GM/250 ML BAG IV ONE (12:00)
[2018-11-22] MEDS ORDERED: VANCOMYCIN PHARMACY TO DOSE IV SCH (12:00)
[2018-11-22] MEDS: PROTONIX IV SCH ×2 (12:54→21:59)
[2018-11-22] MEDS: SODIUM CHLORIDE FLUSH SYRINGE 10 ML IV SCH ×2 (12:58→22:00)
[2018-11-22] MEDS: DILAUDID IV PRN (12:59)
--- NOTE | 2018-11-22 14:12 | Progress Note ---
Assessment and Plan Chronic hypoxemic respiratory failure. Small bowel obstruction, status post surgical intervention. Chronic right upper lobe scarring. Right upper lobe bronchiectasis. Adult failure to thrive. Acute chronic obstructive pulmonary disease exacerbation. History of diabetes. History of hypertension - continue supplemental oxygen as needed to keep O2 sat's > 90% - continue bronchodilators with pulmonary hygiene per RT - complete CAP AB's therapy - with chronic lung disease MRSA is likely a colonizer - can seek ID opinion but suggest empiric CAP therapy and d/c Vancomycin - continue GI & VTE prophylaxis - PT/OT as tolerate - fall precautions - mobility protocols for pressure ulcer prophylaxis - continue other care per attending / other consultants ... re-evaluate in am & prn Subjective Date of service: 11/22/18 Principal diagnosis: Ch hypoxemic resp failure; SBO; RUL bronchiectasis; Adult FTT; COPD Interval history: Patient is seen today for: Chronic hypoxemic respiratory failure; Small bowel obstruction; Chronic right upper lobe scarring; Right upper lobe bronchiectasis; Adult failure to thrive; Acute chronic obstructive pulmonary disease exacerbation; History of diabetes; History of hypertension Seen and examined at bedside; 24hour events reviewed; nursing and respiratory care staff consulted; no adverse overnight events reported to me; resting pe acefully in bed; getting a breathing treatment; angel being removed by RN; No N/V/F/C Objective Vital Signs - 12hr 11/22/18 11/22/18 11/22/18 05:05 07:14 07:30 Temperature 97.7 F 98.1 F Pulse Rate 75 71 Pulse Rate [ 74 Anterior] Respiratory 17 20 Rate Respiratory 18 Rate [Anterior] Blood Pressure 141/77 136/72 O2 Sat by Pulse 97 98 98 Oximetry 11/22/18 13:20 Temperature Pulse Rate Pulse Rate [ 76 Anterior] Respiratory Rate Respiratory 20 Rate [Anterior] Blood Pressure O2 Sat by Pulse Oximetry Constitutional: no acute distress, other (elderly and chronically ill looking male, normocephalic and atraumatic) Eyes: non-icteric ENT: oropharynx moist Neck: supple, no lymphadenopathy, no JVD Effort: mildly labored Ascultation: Bilateral: diminished breath sounds, rhonchi Percussion: Bilateral: not dull Cardiovascular: regular rate and rhythm Gastrointestinal: normoactive bowel sounds, hypoactive bowel sounds, soft, non-tender, other (midline abdominal sutures) Integumentary: other (midline abdominal sutures) Extremities: no cyanosis, no edema, pink and warm, pulses normal Neurologic: non-focal exam (grossly), CN II-XII normal, motor strength normal and Psychiatric: mood appropriate, affect normal CBC and BMP: 11/22/18 06:02 11/23/18 10:55 Abnormal lab findings: Abnormal Labs 11/12/18 11/12/18 11/12/18 16:07 16:07 21:29 WBC RBC 6.29 H Hgb Hct MCV 69 L MCH 23 L MCHC RDW 15.4 H Lymph % (Auto) 9.7 L [place] % (Auto) 14.0 H Lymph # 0.8 L [place] # 1.2 H Seg Neutrophils % 76.1 H Seg Neuts % (Manual) Lymphocytes % (Manual) Monocytes % (Manual) Seg Neutrophils # Lymphocytes # (Manual) Sodium 135 L Potassium Chloride 91.3 L Carbon Dioxide BUN 31 H Creatinine Glucose 228 H POC Glucose Lactic Acid 3.10 H* Calcium Total Protein Albumin Lipase 11 L Urine pH 11/12/18 11/13/18 11/13/18 21:30 04:51 04:51 WBC RBC 5.68 H Hgb Hct MCV 68 L MCH 22 L MCHC RDW Lymph % (Auto) [place] % (Auto) Lymph # [place] # Seg Neutrophils % Seg Neuts % (Manual) Lymphocytes % (Manual) Monocytes % (Manual) Seg Neutrophils # Lymphocytes # (Manual) Sodium 136 L Potassium Chloride 97.5 L Carbon Dioxide BUN 27 H Creatinine Glucose 164 H POC Glucose 211 H Lactic Acid Calcium Total Protein Albumin Lipase Urine pH 11/13/18 11/13/18 11/13/18 09:09 09:31 13:10 WBC RBC Hgb Hct MCV MCH MCHC RDW Lymph % (Auto) [place] % (Auto) Lymph # [place] # Seg Neutrophils % Seg Neuts % (Manual) Lymphocytes % (Manual) Monocytes % (Manual) Seg Neutrophils # Lymphocytes # (Manual) Sodium Potassium Chloride Carbon Dioxide BUN Creatinine Glucose POC Glucose 169 H 224 H Lactic Acid 2.10 H* Calcium Total Protein Albumin Lipase Urine pH 11/13/18 11/13/18 11/14/18 17:34 21:13 00:01 WBC RBC Hgb Hct MCV MCH MCHC RDW Lymph % (Auto) [place] % (Auto) Lymph # [place] # Seg Neutrophils % Seg Neuts % (Manual) Lymphocytes % (Manual) Monocytes % (Manual) Seg Neutrophils # Lymphocytes # (Manual) Sodium Potassium Chloride Carbon Dioxide BUN Creatinine Glucose POC Glucose 217 H 166 H 180 H Lactic Acid Calcium Total Protein Albumin Lipase Urine pH 11/14/18 11/14/18 11/14/18 05:15 05:15 13:10 WBC RBC 6.10 H Hgb Hct MCV 70 L MCH 22 L MCHC RDW Lymph % (Auto) 2.2 L [place] % (Auto) 9.5 H Lymph # 0.2 L [place] # 0.9 H Seg Neutrophils % 88.2 H Seg Neuts % (Manual) Lymphocytes % (Manual) Monocytes % (Manual) Seg Neutrophils # 8.0 H Lymphocytes # (Manual) Sodium Potassium Chloride Carbon Dioxide BUN Creatinine Glucose 263 H POC Glucose 292 H Lactic Acid Calcium 8.0 L Total Protein 5.9 L D Albumin 3.1 L Lipase Urine pH 11/14/18 11/15/18 11/15/18 16:14 08:38 11:23 WBC RBC Hgb Hct MCV MCH MCHC RDW Lymph % (Auto) [place] % (Auto) Lymph # [place] # Seg Neutrophils % Seg Neuts % (Manual) Lymphocytes % (Manual) Monocytes % (Manual) Seg Neutrophils # Lymphocytes # (Manual) Sodium 136 L Potassium 3.4 L D Chloride Carbon Dioxide BUN Creatinine 0.7 L Glucose 212 H POC Glucose 245 H 226 H Lactic Acid Calcium 8.1 L Total Protein Albumin Lipase Urine pH 11/15/18 11/15/18 11/16/18 17:53 22:13 06:20 WBC RBC Hgb Hct MCV MCH MCHC RDW Lymph % (Auto) [place] % (Auto) Lymph # [place] # Seg Neutrophils % Seg Neuts % (Manual) Lymphocytes % (Manual) Monocytes % (Manual) Seg Neutrophils # Lymphocytes # (Manual) Sodium 136 L Potassium 3.4 L Chloride 96.6 L Carbon Dioxide BUN 8 L Creatinine 0.6 L Glucose 209 H POC Glucose 180 H 161 H Lactic Acid Calcium 8.1 L Total Protein Albumin Lipase Urine pH 11/16/18 11/16/18 11/16/18 08:09 11:38 16:09 WBC RBC Hgb Hct MCV MCH MCHC RDW Lymph % (Auto) [place] % (Auto) Lymph # [place] # Seg Neutrophils % Seg Neuts % (Manual) Lymphocytes % (Manual) Monocytes % (Manual) Seg Neutrophils # Lymphocytes # (Manual) Sodium Potassium Chloride Carbon Dioxide BUN Creatinine Glucose POC Glucose 217 H 189 H 106 H Lactic Acid Calcium Total Protein Albumin Lipase Urine pH 11/16/18 11/17/18 11/17/18 21:58 06:17 06:17 WBC RBC 5.32 H Hgb Hct MCV 68 L MCH 23 L MCHC RDW Lymph % (Auto) [place] % (Auto) Lymph # [place] # Seg Neutrophils % Seg Neuts % (Manual) 74.0 H Lymphocytes % (Manual) 12.0 L Monocytes % (Manual) 11.0 H Seg Neutrophils # Lymphocytes # (Manual) 0.7 L Sodium 136 L Potassium Chloride 96.3 L Carbon Dioxide BUN Creatinine 0.6 L Glucose 202 H POC Glucose 172 H Lactic Acid Calcium 8.0 L Total Protein Albumin Lipase Urine pH 11/17/18 11/17/18 11/17/18 07:14 11:34 16:10 WBC RBC Hgb Hct MCV MCH MCHC RDW Lymph % (Auto) [place] % (Auto) Lymph # [place] # Seg Neutrophils % Seg Neuts % (Manual) Lymphocytes % (Manual) Monocytes % (Manual) Seg Neutrophils # Lymphocytes # (Manual) Sodium Potassium Chloride Carbon Dioxide BUN Creatinine Glucose POC Glucose 189 H 159 H 157 H Lactic Acid Calcium Total Protein Albumin Lipase Urine pH 11/17/18 11/18/18 11/18/18 21:40 04:25 07:48 WBC RBC Hgb Hct MCV MCH MCHC RDW Lymph % (Auto) [place] % (Auto) Lymph # [place] # Seg Neutrophils % Seg Neuts % (Manual) Lymphocytes % (Manual) Monocytes % (Manual) Seg Neutrophils # Lymphocytes # (Manual) Sodium 135 L Potassium Chloride 95.8 L Carbon Dioxide BUN 8 L Creatinine 0.6 L Glucose 204 H POC Glucose 120 H 212 H Lactic Acid Calcium 8.0 L Total Protein Albumin Lipase Urine pH 11/18/18 11/18/18 11/18/18 11:41 16:16 21:16 WBC RBC Hgb Hct MCV MCH MCHC RDW Lymph % (Auto) [place] % (Auto) Lymph # [place] # Seg Neutrophils % Seg Neuts % (Manual) Lymphocytes % (Manual) Monocytes % (Manual) Seg Neutrophils # Lymphocytes # (Manual) Sodium Potassium Chloride Carbon Dioxide BUN Creatinine Glucose POC Glucose 129 H 152 H 112 H Lactic Acid Calcium Total Protein Albumin Lipase Urine pH 09/07/0411/19/18 11/19/18 06:14 08:07 11:55 WBC 13.3 H RBC 5.44 H Hgb 11.7 L Hct MCV 68 L MCH 22 L MCHC 31 L RDW Lymph % (Auto) 9.2 L [place] % (Auto) 11.6 H Lymph # [place] # 1.5 H Seg Neutrophils % 77.1 H Seg Neuts % (Manual) Lymphocytes % (Manual) Monocytes % (Manual) Seg Neutrophils # 10.3 H Lymphocytes # (Manual) Sodium Potassium Chloride Carbon Dioxide BUN Creatinine Glucose POC Glucose 225 H 243 H Lactic Acid Calcium Total Protein Albumin Lipase Urine pH 11/19/18 11/19/18 11/20/18 16:44 20:51 04:19 WBC 14.5 H RBC 5.04 H Hgb 11.2 L Hct 34.1 L MCV 68 L MCH 22 L MCHC RDW Lymph % (Auto) 8.1 L [place] % (Auto) 9.5 H Lymph # [place] # 1.4 H Seg Neutrophils % 81.0 H Seg Neuts % (Manual) Lymphocytes % (Manual) Monocytes % (Manual) Seg Neutrophils # 11.8 H Lymphocytes # (Manual) Sodium Potassium Chloride Carbon Dioxide BUN Creatinine Glucose POC Glucose 195 H 179 H Lactic Acid Calcium Total Protein Albumin Lipase Urine pH 11/20/18 11/20/18 11/20/18 04:19 07:55 12:05 WBC RBC Hgb Hct MCV MCH MCHC RDW Lymph % (Auto) [place] % (Auto) Lymph # [place] # Seg Neutrophils % Seg Neuts % (Manual) Lymphocytes % (Manual) Monocytes % (Manual) Seg Neutrophils # Lymphocytes # (Manual) Sodium Potassium 3.1 L Chloride 97.9 L Carbon Dioxide 33 H BUN 5 L Creatinine 0.6 L Glucose 226 H POC Glucose 218 H 121 H Lactic Acid Calcium 7.9 L Total Protein Albumin Lipase Urine pH 11/20/18 11/20/18 11/21/18 16:59 20:49 06:04 WBC RBC Hgb 11.0 L Hct 34.7 L MCV 69 L MCH 22 L MCHC RDW Lymph % (Auto) [place] % (Auto) 9.5 H Lymph # [place] # 0.9 H Seg Neutrophils % 73.1 H Seg Neuts % (Manual) Lymphocytes % (Manual) Monocytes % (Manual) Seg Neutrophils # Lymphocytes # (Manual) Sodium Potassium Chloride Carbon Dioxide BUN Creatinine Glucose POC Glucose 117 H 118 H Lactic Acid Calcium Total Protein Albumin Lipase Urine pH 11/21/18 11/21/18 11/21/18 06:04 07:51 11:40 WBC RBC Hgb Hct MCV MCH MCHC RDW Lymph % (Auto) [place] % (Auto) Lymph # [place] # Seg Neutrophils % Seg Neuts % (Manual) Lymphocytes % (Manual) Monocytes % (Manual) Seg Neutrophils # Lymphocytes # (Manual) Sodium Potassium 3.3 L Chloride 96.9 L Carbon Dioxide 33 H BUN 8 L Creatinine 0.7 L Glucose 189 H POC Glucose 191 H 221 H Lactic Acid Calcium 8.0 L Total Protein Albumin Lipase Urine pH 11/21/18 11/21/18 11/21/18 16:20 21:07 Unknown WBC RBC Hgb Hct MCV MCH MCHC RDW Lymph % (Auto) [place] % (Auto) Lymph # [place] # Seg Neutrophils % Seg Neuts % (Manual) Lymphocytes % (Manual) Monocytes % (Manual) Seg Neutrophils # Lymphocytes # (Manual) Sodium Potassium Chloride Carbon Dioxide BUN Creatinine Glucose POC Glucose 179 H 253 H Lactic Acid Calcium Total Protein Albumin Lipase Urine pH 8.0 H 11/22/18 11/22/18 11/22/18 06:02 06:02 07:23 WBC RBC 5.57 H Hgb Hct MCV 68 L MCH 22 L MCHC RDW Lymph % (Auto) [place] % (Auto) 9.3 H Lymph # [place] # 1.0 H Seg Neutrophils % 73.4 H Seg Neuts % (Manual) Lymphocytes % (Manual) Monocytes % (Manual) Seg Neutrophils # Lymphocytes # (Manual) Sodium Potassium Chloride 97.7 L Carbon Dioxide 31 H BUN 6 L Creatinine 0.6 L Glucose 161 H POC Glucose 165 H Lactic Acid Calcium Total Protein Albumin Lipase Urine pH 11/22/18 11:25 WBC RBC Hgb Hct MCV MCH MCHC RDW Lymph % (Auto) [place] % (Auto) Lymph # [place] # Seg Neutrophils % Seg Neuts % (Manual) Lymphocytes % (Manual) Monocytes % (Manual) Seg Neutrophils # Lymphocytes # (Manual) Sodium Potassium Chloride Carbon Dioxide BUN Creatinine Glucose POC Glucose 267 H Lactic Acid Calcium Total Protein Albumin Lipase Urine pH Allied health notes reviewed: nursing
--- NOTE | 2018-11-22 14:51 | Consultation ---
History of Present Illness - Reason for Consult Consult date: 11/22/18 - History of Present Illness Pt is a 77 yo M PMHx COPD on home O2, DM2, HTN who was admitted to the hospital with nausea, vomiting, and SOB. He also complained of fatigue and a non- productive cough which began 3-4 days prior to admission. It's not that prior to admission that his travel registered nurse icu started him on levofloxacin prior to admission, however he was vomiting the entire time. On admission he was found to have an SB O secondary to an incarcerated hernia. He was takent ot the OR on 11/14 for an uncomplicated take down of the obstruction. Since then he was progressing well until 11/20 when it was noted he developed a leukocytosis. He was guerrero-cultured at the time, and sputum cultures grew MRSA. He was then started on vancomycin. He has been afebrile since admission. Leukocytosis has improved after starting antibiotics. Cultures otherwise negative. Family notes increased cough and sputum production. Imaging personally reviewed: 11/20 CXR: subtle airspace opacity R apex, stable from previous exams. Review of Systems: Bold if positive, otherwise negative General: fevers, chills, rigors HEENT: visual disturbance, diplopia, eye pain Respiratory: cough, sputum, hemoptysis, shortness of breath Cardiovascular: chest pain, syncope Gastrointestinal: nausea, vomiting, diarrhea, abdominal pain Genitourinary: dysuria, hematuria, flank pain Musculoskeletal: neck pain, back pain, joint pain, edema Neurologic: headaches, seizures Hematologic: easy bruising or bleeding Endocrine: night sweats, acute weight loss Skin: rash, jaundice, redness Psychiatric: suicidal, homicidal ideation Past History Past Medical History: COPD, diabetes, hypertension Past Surgical History: hernia repair Social history: denies: smoking, alcohol abuse Family history: diabetes, hypertension Medications and Allergies Allergies Allergy/AdvReac Type Severity Reaction Status Date / Time Penicillins Allergy Unknown-over Verified 06/25/18 17:28 45 years ago Home Medications Medication Instructions Recorded Confirmed Last Taken Type AtorvaSTATin [Lipitor] 10 mg PO QHS 01/31/18 11/12/18 06/26/18 History Losartan Potassium [Cozaar] 50 mg PO DAILY 01/31/18 11/12/18 06/26/18 History Umeclidinium [place] [Incruse 1 puff IH QDAY 06/25/18 11/13/18 06/26/18 History Ellipta] metFORMIN [Glucophage] 850 mg PO BID 06/25/18 11/12/18 06/26/18 History Fluticasone/Vilanterol [Breo 1 each IH DAILY 11/12/18 11/13/18 Unknown History Ellipta 100-25 Mcg INH] Active Meds: Active Medications Acetaminophen (Tylenol) 650 mg PO Q4H PRN PRN Reason: Pain MILD(1-3)/Fever >100.5/QUINTEROS Albuterol (Proventil) 2.5 mg IH Q4HRT PRN PRN Reason: Dyspnea Albuterol/Ipratropium (Duoneb *Not For Prn Use*) 1 ampul IH TIDRT [facility] Last Admin: 11/22/18 13:20 Dose: 1 ampul Documented by: Dextrose (D50w (25gm) Syringe) 50 ml IV PRN PRN PRN Reason: Hypoglycemia Hydralazine HCl (Apresoline) 10 mg IV Q4HR PRN PRN Reason: Blood Pressure Hydromorphone HCl (Dilaudid) 2 mg IV Q4H PRN PRN Reason: Pain , Severe (7-10) Last Admin: 11/22/18 12:59 Dose: 2 mg Documented by: Potassium Chloride/Dextrose/Sod Cl (D5w/Ns W/Kcl 20meq) 20 meq in 1,000 mls @ 75 mls/hr IV DIRECT BRYANT Last Admin: 11/22/18 02:38 Dose: 75 mls/hr Documented by: Vancomycin HCl 750 mg/ Sodium (Chloride) 265 mls @ 166.667 mls/hr IV Q18H [facility] Insulin Human Lispro (Humalog) 0 unit SUB-Q ACHS [facility]; Protocol Last Admin: 11/22/18 12:53 Dose: 2 unit Documented by: Morphine Sulfate (Morphine) 4 mg IV Q3H PRN PRN Reason: Pain, Moderate (4-6) Last Admin: 11/14/18 01:57 Dose: 4 mg Documented by: Ondansetron HCl (Zofran) 4 mg IV Q8H PRN PRN Reason: Nausea And Vomiting Pantoprazole Sodium (Protonix) 40 mg IV BID [facility] Last Admin: 11/22/18 12:54 Dose: 40 mg Documented by: Phenol (Chloraseptic) 1 spray MM PRN PRN PRN Reason: Sore Throat Last Admin: 11/19/18 09:02 Dose: 1 spray Documented by: Sodium Chloride (Sodium Chloride Flush Syringe 10 Ml) 10 ml IV BID BRYANT Last Admin: 11/22/18 12:58 Dose: 10 ml Documented by: Sodium Chloride (Sodium Chloride Flush Syringe 10 Ml) 10 ml IV PRN PRN PRN Reason: LINE FLUSH Physical Examination - Physical Exam Narrative exam: Physical Exam: Constitutional: Alert, cooperative. No acute distress Head, Ears, Nose: Normocephalic, atraumatic. External ears, nose normal Eyes: Conjunctivae/corneas clear. No icterus. No ptosis. Neck: Supple, no meningeal signs Oral: dentition fair, no thrush Cardiovascular: S1, S2 normal. Respiratory: Hyper-resonant, no crackles GI: Soft, non-tender; bowel sounds normal. No peritoneal signs. Musculoskeletal: No pedal edema, no cyanosis. Skin: No rash or abscess Hem/Lymphatic: No palpable cervical or supraclavicular nodes. No lymphangitis Psych: Mood ok. Affect normal Neurological: Awake, alert, oriented. No gross abnormality - Constitutional Vitals: Vital Signs Temp Pulse Resp BP Pulse Ox 98.1 F 76 20 136/72 98 11/22/18 07:14 11/22/18 13:20 11/22/18 13:20 11/22/18 07:14 11/22/18 07:30 Temperature -Last 24 Hours Temperature 98.1 F Temperature 97.7 F Temperature 97.5 F Temperature 97.9 F Temperature 97.9 F Results - Labs CBC & Chem 7: 11/22/18 06:02 11/22/18 06:02 Labs: Abnormal lab results 11/21/18 11/21/18 11/21/18 Range/Units 16:20 21:07 Unknown RBC (3.65-5.03) M/mm3 MCV (84-94) fl MCH (28-32) pg [place] % (Auto) (0.0-7.3) % [place] # (0.0-0.8) K/mm3 Seg Neutrophils % (40.0-70.0) % Chloride (98-107) mmol/L Carbon Dioxide (22-30) mmol/L BUN (9-20) mg/dL Creatinine (0.8-1.5) mg/dL Glucose (75-100) mg/dL POC Glucose 179 H 253 H (70-105) Urine pH 8.0 H (5.0-7.0) 11/22/18 11/22/18 11/22/18 Range/Units 06:02 06:02 07:23 RBC 5.57 H (3.65-5.03) M/mm3 MCV 68 L (84-94) fl MCH 22 L (28-32) pg [place] % (Auto) 9.3 H (0.0-7.3) % [place] # 1.0 H (0.0-0.8) K/mm3 Seg Neutrophils % 73.4 H (40.0-70.0) % Chloride 97.7 L (98-107) mmol/L Carbon Dioxide 31 H (22-30) mmol/L BUN 6 L (9-20) mg/dL Creatinine 0.6 L (0.8-1.5) mg/dL Glucose 161 H (75-100) mg/dL POC Glucose 165 H (70-105) Urine pH (5.0-7.0) 11/22/18 Range/Units 11:25 RBC (3.65-5.03) M/mm3 MCV (84-94) fl MCH (28-32) pg [place] % (Auto) (0.0-7.3) % [place] # (0.0-0.8) K/mm3 Seg Neutrophils % (40.0-70.0) % Chloride (98-107) mmol/L Carbon Dioxide (22-30) mmol/L BUN (9-20) mg/dL Creatinine (0.8-1.5) mg/dL Glucose (75-100) mg/dL POC Glucose 267 H (70-105) Urine pH (5.0-7.0) - Imaging and Cardiology Chest x-ray: image reviewed Assessment and Plan Cultures: 11/20 SCx - MRSA 11/20 UCx - negative 11/20 BCx - NGTD A/P: Pt is a 77 yo M PMHx COPD on home O2, DM2, HTN who was admitted to the hospital with nausea, vomiting, and SOB 1. MRSA pneumonia - while sputum culture had few WBC, so this may be a contaminant. Given it was taken as his leukocytosis was worsening, and worse symptoms with sputum production I would complete a course. Can continue vanco mycin for now, de-escalate to Bactrim pending improvement. 2. incarcerated hernia - resolved 3. COPD on home O2 4. Penicillin allergy 5. DM2 - Maintain good control for improved immune function 6. HTN Recs: - continue vancomycin dosed per pharmacy, appreciate their assistance. Goal trough 15-20 - plan to discharge on Bactrim DS BID. Complete 8 day course from vancomycin initiation. Stop date: 11/30 - Monitor renal function while on vancomycin MD Yariel [facility] M: [phone] O: [phone] F: [phone]
[2018-11-22] MEDS ORDERED: ROCEPHIN/NS 1 GM/50 ML 1 GM/50 ML BAG IV SCH (22:00)
--- NOTE | 2018-11-23 02:42 | Consultation ---
PULMONARY CONSULT NOTE CONSULTING PHYSICIAN: Dr. Monroe. REASON FOR CONSULTATION: Pneumonia. CHIEF COMPLAINT AND HISTORY OF PRESENT ILLNESS: The patient is a 77-year-old male with past medical history significant amongst other things for a diagnosis of chronic obstructive lung disease, on home oxygen therapy, who came to see his melt helper in the clinic, treated for an outpatient pneumonia with Levaquin. He was brought into the hospital because he was having nausea and vomiting, generalized weakness, decreased appetite. He had been without food for a couple of days. He was evaluated in the Emergency Room, admitted initially for possible right upper lobe acute lung process. Imaging, however, was consistent for a small bowel obstruction possibility. Surgery was ultimately consulted. The patient required operative intervention. We are asked to follow along with the patient for the right upper lobe pneumonia. When I stopped by to see him, he was resting in bed, not in overt respiratory distress. Denied any chest pain. Family was in the room to assist with the history. Again, he is on home oxygen. The family did not remember history of a remote pneumonia, but did say that he was on oxygen therapy at home. He did have episodes of nausea and vomiting. Overt aspiration was denied as far as they could tell. Now with regards to tobacco use/abuse history, the patient is not a current smoker. Remote history is unknown. This really is as much of the history of presentation as I have. PAST MEDICAL HISTORY: Again, significant for hypertension, diabetes, COPD. Adult failure to thrive. PAST SURGICAL HISTORY: He has had hernia surgery in the past. MEDICATIONS: He was on at the time I stopped by to see him were reviewed. Pertinent medications included the following: Tylenol 650 mg p.o. q. 4 hours p.r.n. mild pain or fevers. Albuterol and Atrovent treatments nebulized t.i.d. Hydralazine 10 mg IV q. 4 hours p.r.n. elevated blood pressure, Dilaudid 2 mg IV q. 4 hours p.r.n. severe pain, insulin via sliding scale, morphine sulfate 4 mg IV q. 3 hours p.r.n. moderate pain, Zofran 4 mg IV q. 8 hours p.r.n. nausea and vomiting, Protonix 40 mg IV b.i.d. Vancomycin 750 mg IV q. 18 hours. ALLERGIES: PENICILLINS. Nature of this allergy is unknown. DIET: Thin, bordering on cachectic. Family describes weight loss in the preceding 2-3 months. FAMILY AND SOCIAL HISTORY: Apparently lives in the community with family. They deny alcohol, tobacco, or illicit drug use or abuse. There is a family history of diabetes and hypertension. REVIEW OF SYSTEMS: Difficult to obtain. Due to his medical and mental condition, but also there is a little bit of a language barrier, but family was going to ask a few questions. He denied chest pain. He denied any palpitations. They denied gross bleeding. They denied hematochezia, hematuria or dysuria. Complete 13-system review of systems obtained as best as I could. Pertinent positives and/or negatives as in body of history above, otherwise they are noncontributory. PHYSICAL EXAMINATION: VITAL SIGNS: On examination at presentation in the Emergency Room, initial vital signs shows that he was afebrile, temperature 98.2 degrees Fahrenheit with a pulse of 95, respiratory rate of 24, blood pressure 139/83, O2 sats were 94%, inspired oxygen concentration at the time was not recorded. When I stopped by to see him, O2 sats were 98% on 2 liters nasal cannula. GENERAL: He is an elderly looking thin male, normocephalic, resting peacefully in bed with mildly increased respiratory effort at rest. HEAD, EYES, EARS, NOSE AND THROAT: He is anicteric. No conjunctival erythema. Oropharynx is moist. Mallampati #2 oropharynx. No gross jugular venous distention, no thyromegaly. Grossly, no palpable lymph nodes in the supraclavicular or submandibular lymph node chains. LUNGS: Auscultation of both lung flowers, diminished bilateral breath sounds, slightly prolonged expiratory phase. No active wheezing. HEART: Heart sounds 1 and 2 are heard. They were regular in rate and rhythm at the time of my evaluation without overt rubs or murmurs. ABDOMEN: Flat, soft, mildly tender. He had retention sutures as well as angel in the midline of the abdomen. No palpable hepatosplenomegaly. EXTREMITIES: Without overt digital clubbing or cyanosis and no pedal edema. Pedal pulses were 2+ bilaterally. NEUROLOGIC: He had spontaneous movements to all 4 extremities and followed commands as directed. No spasticity. SKIN: Normal turgor without overt cellulitis or rash. He had the midline abdominal wound. PSYCHIATRIC: His mood was normal. His affect was appropriate. LABORATORY DATA: From my review are as follows: Admission white cell count was 8300, hemoglobin 14.2, hematocrit 43.3, platelet count 207. No band forms on the manual differential. Serum sodium was 135, potassium 4.3, chloride 91, bicarbonate 29, BUN 31, creatinine 1.1, glucose was 228. Lactic acid was 3.1. Liver function tests were within normal limits. White count is within normal limits today. BUN is within normal limits. Urinalysis was done. It was negative for nitrites and leukocyte esterase. Four sets of blood cultures, no growth to date. He had a sputum culture that grew methicillin-resistant Staphylococcus aureus and it seems like he had been treated with Rocephin prior. Radiographic studies have been reviewed. The main finding is the CT scan that was done at admission. It does, however, show what appears to be a chronic process in the right upper lobe with calcified lesions including a calcified granuloma. He has likely bronchiectatic changes in the right hilum all the way to the periphery. There is a pleural based density in the right lower lobe, also posteriorly. Overall, appears to be scar tissue/post-inflammatory process. ASSESSMENT: 1. Chronic hypoxemic respiratory failure. 2. Small bowel obstruction, status post surgical intervention. 3. Chronic right upper lobe scarring. 4. Right upper lobe bronchiectasis. 5. Adult failure to thrive. 6. Acute chronic obstructive pulmonary disease exacerbation. 7. History of diabetes. 8. History of hypertension. PLAN: I do feel like the upper lobe process is mostly chronic. Empiric treatment with Levaquin monotherapy, the Rocephin up until now, he should have received appropriate antibiotic therapy for that. I do note the sputum culture that is growing MRSA. Clinically, there is no evidence of an actual MRSA pneumonia or pneumonitis. We will get a CRP level, procalcitonin and especially if those are within normal limits, we will have a short leash to deescalate antibiotic therapy. Otherwise, consultation could be sought by the attending physician from Infectious Disease to see if they will be interested in treating with other antibiotics. I feel that after about 5 days of therapy for the pneumonia, he has had appropriate antibiotic therapy. Other antibiotics should be targeted towards the small bowel process if indicated. Otherwise, he is on GI prophylaxis. I will put him on DVT prophylaxis. Flu and pneumonia vaccination will be addressed per protocol. Thank you very much for the consult, Dr. Monroe. We will follow along and make further recommendations as picture progresses/becomes clearer. I should mention we will continue his chronic bronchodilator therapy for his COPD. JOB# [id number] [place]/CARI FARAH
[2018-11-23] MEDS ORDERED: VANCOMYCIN 750 MG in NACL 0.9% 250ML 250 ML IV SCH (06:00)
[2018-11-23] MEDS: DUONEB *Not for PRN Use IH SCH ×3 (08:03→19:48)
--- NOTE | 2018-11-23 08:19 | Progress Note ---
Assessment and Plan Pt daisy cl liq diet. + BM yesterday Abd minimally distended. non tender. incision clean & dry ID & Pulm consulted r/o pneumonia surgically stable advance to full liq diet f/u abd series in am Selected Entries 11/23/18 07:12 Temperature 97.7 F Pulse Rate 71 Respiratory 20 Rate Blood Pressure 141/79 Laboratory Tests 11/22/18 06:02 WBC 10.2 Objective Vital Signs - 12hr 11/22/18 11/22/18 11/23/18 20:43 21:34 05:14 Temperature 97.6 F Pulse Rate 76 75 Pulse Rate [ 78 Anterior] Respiratory 16 Rate Respiratory 18 Rate [Anterior] Blood Pressure Blood Pressure 140/78 [Right] O2 Sat by Pulse 99 98 99 Oximetry 11/23/18 07:12 Temperature 97.7 F Pulse Rate 71 Pulse Rate [ Anterior] Respiratory 20 Rate Respiratory Rate [Anterior] Blood Pressure 141/79 Blood Pressure [Right] O2 Sat by Pulse 98 Oximetry - Labs 11/22/18 06:02 11/22/18 06:02
[2018-11-23] MEDS: PROTONIX IV SCH ×3 (08:44→21:14)
[2018-11-23] MEDS: SODIUM CHLORIDE FLUSH SYRINGE 10 ML IV SCH ×3 (08:44→22:54)
[2018-11-23] MEDS: HumaLOG SUB-Q SCH ×4 (08:47→22:54)
[2018-11-23 11:29] LABS: BUN/Creatinine Ratio 8; Blood Urea Nitrogen 5 mg/dL (9-20); Calcium 8.2 mg/dL (8.4-10.2); Hemolysis Index 4
[2018-11-23] MEDS: BACTRIM DS PO SCH ×2 (11:44→22:56)
--- NOTE | 2018-11-23 12:03 | Progress Note ---
Assessment and Plan Chronic hypoxemic respiratory failure. Small bowel obstruction, status post surgical intervention. Chronic right upper lobe scarring. Right upper lobe bronchiectasis. Adult failure to thrive. Acute chronic obstructive pulmonary disease exacerbation. History of diabetes. History of hypertension - continue supplemental oxygen as needed to keep O2 sat's > 90% - continue bronchodilators with pulmonary hygiene per RT - complete CAP AB's therapy - with chronic lung disease MRSA is likely a colonizer - can seek ID opinion but suggest empiric CAP therapy and d/c Vancomycin - continue GI & VTE prophylaxis - PT/OT as tolerate - fall precautions - mobility protocols for pressure ulcer prophylaxis - continue other care per attending / other consultants ... re-evaluate in am & prn Subjective Date of service: 11/23/18 Principal diagnosis: Ch hypoxemic resp failure; SBO; RUL bronchiectasis; Adult FTT; COPD Interval history: Patient is seen today for: Chronic hypoxemic respiratory failure; Small bowel obstruction; Chronic right upper lobe scarring; Right upper lobe bronchiectasis; Adult failure to thrive; Acute chronic obstructive pulmonary disease exacerbation; History of diabetes; History of hypertension Seen and examined at bedside; 24hour events reviewed; nursing and respiratory care staff consulted; no adverse overnight events reported to me; resting peacefully in bed; Objective Vital Signs - 12hr 11/23/18 11/23/18 11/23/18 05:14 07:12 08:00 Temperature 97.6 F 97.7 F Pulse Rate 75 71 Pulse Rate [ Anterior] Respiratory 16 20 Rate Respiratory Rate [Anterior] Blood Pressure 141/79 Blood Pressure 140/78 [Right] O2 Sat by Pulse 99 98 98 Oximetry 11/23/18 08:03 Temperature Pulse Rate Pulse Rate [ 72 Anterior] Respiratory Rate Respiratory 20 Rate [Anterior] Blood Pressure Blood Pressure [Right] O2 Sat by Pulse 98 Oximetry Constitutional: no acute distress, other (elderly and chronically ill looking male, normocephalic and atraumatic) Eyes: non-icteric ENT: oropharynx moist Neck: supple, no lymphadenopathy, no JVD Effort: mildly labored Ascultation: Bilateral: diminished breath sounds, rhonchi Percussion: Bilateral: not dull Cardiovascular: regular rate and rhythm Gastrointestinal: normoactive bowel sounds, hypoactive bowel sounds, soft, non- tender, other (midline abdominal sutures) Integumentary: other (midline abdominal sutures) Extremities: no cyanosis, no edema, pink and warm, pulses normal Neurologic: non-focal exam (grossly), CN II-XII normal, motor strength normal and Psychiatric: mood appropriate, affect normal CBC and BMP: 11/22/18 06:02 11/23/18 10:55 Abnormal lab findings: Abnormal Labs 11/12/18 11/12/18 11/12/18 16:07 16:07 21:29 WBC RBC 6.29 H Hgb Hct MCV 69 L MCH 23 L MCHC RDW 15.4 H Lymph % (Auto) 9.7 L [place] % (Auto) 14.0 H Lymph # 0.8 L [place] # 1.2 H Seg Neutrophils % 76.1 H Seg Neuts % (Manual) Lymphocytes % (Manual) Monocytes % (Manual) Seg Neutrophils # Lymphocytes # (Manual) Sodium 135 L Potassium Chloride 91.3 L Carbon Dioxide BUN 31 H Creatinine Glucose 228 H POC Glucose Lactic Acid 3.10 H* Calcium Total Protein Albumin Lipase 11 L Urine pH 11/12/18 11/13/18 11/13/18 21:30 04:51 04:51 WBC RBC 5.68 H Hgb Hct MCV 68 L MCH 22 L MCHC RDW Lymph % (Auto) [place] % (Auto) Lymph # [place] # Seg Neutrophils % Seg Neuts % (Manual) Lymphocytes % (Manual) Monocytes % (Manual) Seg Neutrophils # Lymphocytes # (Manual) Sodium 136 L Potassium Chloride 97.5 L Carbon Dioxide BUN 27 H Creatinine Glucose 164 H POC Glucose 211 H Lactic Acid Calcium Total Protein Albumin Lipase Urine pH 11/13/18 11/13/18 11/13/18 09:09 09:31 13:10 WBC RBC Hgb Hct MCV MCH MCHC RDW Lymph % (Auto) [place] % (Auto) Lymph # [place] # Seg Neutrophils % Seg Neuts % (Manual) Lymphocytes % (Manual) Monocytes % (Manual) Seg Neutrophils # Lymphocytes # (Manual) Sodium Potassium Chloride Carbon Dioxide BUN Creatinine Glucose POC Glucose 169 H 224 H Lactic Acid 2.10 H* Calcium Total Protein Albumin Lipase Urine pH 11/13/18 11/13/18 11/14/18 17:34 21:13 00:01 WBC RBC Hgb Hct MCV MCH MCHC RDW Lymph % (Auto) [place] % (Auto) Lymph # [place] # Seg Neutrophils % Seg Neuts % (Manual) Lymphocytes % (Manual) Monocytes % (Manual) Seg Neutrophils # Lymphocytes # (Manual) Sodium Potassium Chloride Carbon Dioxide BUN Creatinine Glucose POC Glucose 217 H 166 H 180 H Lactic Acid Calcium Total Protein Albumin Lipase Urine pH 11/14/18 11/14/18 11/14/18 05:15 05:15 13:10 WBC RBC 6.10 H Hgb Hct MCV 70 L MCH 22 L MCHC RDW Lymph % (Auto) 2.2 L [place] % (Auto) 9.5 H Lymph # 0.2 L [place] # 0.9 H Seg Neutrophils % 88.2 H Seg Neuts % (Manual) Lymphocytes % (Manual) Monocytes % (Manual) Seg Neutrophils # 8.0 H Lymphocytes # (Manual) Sodium Potassium Chloride Carbon Dioxide BUN Creatinine Glucose 263 H POC Glucose 292 H Lactic Acid Calcium 8.0 L Total Protein 5.9 L D Albumin 3.1 L Lipase Urine pH 11/14/18 11/15/18 11/15/18 16:14 08:38 11:23 WBC RBC Hgb Hct MCV MCH MCHC RDW Lymph % (Auto) [place] % (Auto) Lymph # [place] # Seg Neutrophils % Seg Neuts % (Manual) Lymphocytes % (Manual) Monocytes % (Manual) Seg Neutrophils # Lymphocytes # (Manual) Sodium 136 L Potassium 3.4 L D Chloride Carbon Dioxide BUN Creatinine 0.7 L Glucose 212 H POC Glucose 245 H 226 H Lactic Acid Calcium 8.1 L Total Protein Albumin Lipase Urine pH 11/15/18 11/15/18 11/16/18 17:53 22:13 06:20 WBC RBC Hgb Hct MCV MCH MCHC RDW Lymph % (Auto) [place] % (Auto) Lymph # [place] # Seg Neutrophils % Seg Neuts % (Manual) Lymphocytes % (Manual) Monocytes % (Manual) Seg Neutrophils # Lymphocytes # (Manual) Sodium 136 L Potassium 3.4 L Chloride 96.6 L Carbon Dioxide BUN 8 L Creatinine 0.6 L Glucose 209 H POC Glucose 180 H 161 H Lactic Acid Calcium 8.1 L Total Protein Albumin Lipase Urine pH 11/16/18 11/16/18 11/16/18 08:09 11:38 16:09 WBC RBC Hgb Hct MCV MCH MCHC RDW Lymph % (Auto) [place] % (Auto) Lymph # [place] # Seg Neutrophils % Seg Neuts % (Manual) Lymphocytes % (Manual) Monocytes % (Manual) Seg Neutrophils # Lymphocytes # (Manual) Sodium Potassium Chloride Carbon Dioxide BUN Creatinine Glucose POC Glucose 217 H 189 H 106 H Lactic Acid Calcium Total Protein Albumin Lipase Urine pH 11/16/18 11/17/18 11/17/18 21:58 06:17 06:17 WBC RBC 5.32 H Hgb Hct MCV 68 L MCH 23 L MCHC RDW Lymph % (Auto) [place] % (Auto) Lymph # [place] # Seg Neutrophils % Seg Neuts % (Manual) 74.0 H Lymphocytes % (Manual) 12.0 L Monocytes % (Manual) 11.0 H Seg Neutrophils # Lymphocytes # (Manual) 0.7 L Sodium 136 L Potassium Chloride 96.3 L Carbon Dioxide BUN Creatinine 0.6 L Glucose 202 H POC Glucose 172 H Lactic Acid Calcium 8.0 L Total Protein Albumin Lipase Urine pH 11/17/18 11/17/18 11/17/18 07:14 11:34 16:10 WBC RBC Hgb Hct MCV MCH MCHC RDW Lymph % (Auto) [place] % (Auto) Lymph # [place] # Seg Neutrophils % Seg Neuts % (Manual) Lymphocytes % (Manual) Monocytes % (Manual) Seg Neutrophils # Lymphocytes # (Manual) Sodium Potassium Chloride Carbon Dioxide BUN Creatinine Glucose POC Glucose 189 H 159 H 157 H Lactic Acid Calcium Total Protein Albumin Lipase Urine pH 11/17/18 11/18/18 11/18/18 21:40 04:25 07:48 WBC RBC Hgb Hct MCV MCH MCHC RDW Lymph % (Auto) [place] % (Auto) Lymph # [place] # Seg Neutrophils % Seg Neuts % (Manual) Lymphocytes % (Manual) Monocytes % (Manual) Seg Neutrophils # Lymphocytes # (Manual) Sodium 135 L Potassium Chloride 95.8 L Carbon Dioxide BUN 8 L Creatinine 0.6 L Glucose 204 H POC Glucose 120 H 212 H Lactic Acid Calcium 8.0 L Total Protein Albumin Lipase Urine pH 11/18/18 11/18/18 11/18/18 11:41 16:16 21:16 WBC RBC Hgb Hct MCV MCH MCHC RDW Lymph % (Auto) [place] % (Auto) Lymph # [place] # Seg Neutrophils % Seg Neuts % (Manual) Lymphocytes % (Manual) Monocytes % (Manual) Seg Neutrophils # Lymphocytes # (Manual) Sodium Potassium Chloride Carbon Dioxide BUN Creatinine Glucose POC Glucose 129 H 152 H 112 H Lactic Acid Calcium Total Protein Albumin Lipase Urine pH 11/19/18 11/19/18 11/19/18 06:14 08:07 11:55 WBC 13.3 H RBC 5.44 H Hgb 11.7 L Hct MCV 68 L MCH 22 L MCHC 31 L RDW Lymph % (Auto) 9.2 L [place] % (Auto) 11.6 H Lymph # [place] # 1.5 H Seg Neutrophils % 77.1 H Seg Neuts % (Manual) Lymphocytes % (Manual) Monocytes % (Manual) Seg Neutrophils # 10.3 H Lymphocytes # (Manual) Sodium Potassium Chloride Carbon Dioxide BUN Creatinine Glucose POC Glucose 225 H 243 H Lactic Acid Calcium Total Protein Albumin Lipase Urine pH 11/19/18 11/19/18 11/20/18 16:44 20:51 04:19 WBC 14.5 H RBC 5.04 H Hgb 11.2 L Hct 34.1 L MCV 68 L MCH 22 L MCHC RDW Lymph % (Auto) 8.1 L [place] % (Auto) 9.5 H Lymph # [place] # 1.4 H Seg Neutrophils % 81.0 H Seg Neuts % (Manual) Lymphocytes % (Manual) Monocytes % (Manual) Seg Neutrophils # 11.8 H Lymphocytes # (Manual) Sodium Potassium Chloride Carbon Dioxide BUN Creatinine Glucose POC Glucose 195 H 179 H Lactic Acid Calcium Total Protein Albumin Lipase Urine pH 11/20/18 11/20/18 11/20/18 04:19 07:55 12:05 WBC RBC Hgb Hct MCV MCH MCHC RDW Lymph % (Auto) [place] % (Auto) Lymph # [place] # Seg Neutrophils % Seg Neuts % (Manual) Lymphocytes % (Manual) Monocytes % (Manual) Seg Neutrophils # Lymphocytes # (Manual) Sodium Potassium 3.1 L Chloride 97.9 L Carbon Dioxide 33 H BUN 5 L Creatinine 0.6 L Glucose 226 H POC Glucose 218 H 121 H Lactic Acid Calcium 7.9 L Total Protein Albumin Lipase Urine pH 11/20/18 11/20/18 11/21/18 16:59 20:49 06:04 WBC RBC Hgb 11.0 L Hct 34.7 L MCV 69 L MCH 22 L MCHC RDW Lymph % (Auto) [place] % (Auto) 9.5 H Lymph # [place] # 0.9 H Seg Neutrophils % 73.1 H Seg Neuts % (Manual) Lymphocytes % (Manual) Monocytes % (Manual) Seg Neutrophils # Lymphocytes # (Manual) Sodium Potassium Chloride Carbon Dioxide BUN Creatinine Glucose POC Glucose 117 H 118 H Lactic Acid Calcium Total Protein Albumin Lipase Urine pH 11/21/18 11/21/18 11/21/18 06:04 07:51 11:40 WBC RBC Hgb Hct MCV MCH MCHC RDW Lymph % (Auto) [place] % (Auto) Lymph # [place] # Seg Neutrophils % Seg Neuts % (Manual) Lymphocytes % (Manual) Monocytes % (Manual) Seg Neutrophils # Lymphocytes # (Manual) Sodium Potassium 3.3 L Chloride 96.9 L Carbon Dioxide 33 H BUN 8 L Creatinine 0.7 L Glucose 189 H POC Glucose 191 H 221 H Lactic Acid Calcium 8.0 L Total Protein Albumin Lipase Urine pH 11/21/18 11/21/18 11/21/18 16:20 21:07 Unknown WBC RBC Hgb Hct MCV MCH MCHC RDW Lymph % (Auto) [place] % (Auto) Lymph # [place] # Seg Neutrophils % Seg Neuts % (Manual) Lymphocytes % (Manual) Monocytes % (Manual) Seg Neutrophils # Lymphocytes # (Manual) Sodium Potassium Chloride Carbon Dioxide BUN Creatinine Glucose POC Glucose 179 H 253 H Lactic Acid Calcium Total Protein Albumin Lipase Urine pH 8.0 H 11/22/18 11/22/18 11/22/18 06:02 06:02 07:23 WBC RBC 5.57 H Hgb Hct MCV 68 L MCH 22 L MCHC RDW Lymph % (Auto) [place] % (Auto) 9.3 H Lymph # [place] # 1.0 H Seg Neutrophils % 73.4 H Seg Neuts % (Manual) Lymphocytes % (Manual) Monocytes % (Manual) Seg Neutrophils # Lymphocytes # (Manual) Sodium Potassium Chloride 97.7 L Carbon Dioxide 31 H BUN 6 L Creatinine 0.6 L Glucose 161 H POC Glucose 165 H Lactic Acid Calcium Total Protein Albumin Lipase Urine pH 11/22/18 11/22/18 11/22/18 11:25 16:14 21:45 WBC RBC Hgb Hct MCV MCH MCHC RDW Lymph % (Auto) [place] % (Auto) Lymph # [place] # Seg Neutrophils % Seg Neuts % (Manual) Lymphocytes % (Manual) Monocytes % (Manual) Seg Neutrophils # Lymphocytes # (Manual) Sodium Potassium Chloride Carbon Dioxide BUN Creatinine Glucose POC Glucose 267 H 115 H 169 H Lactic Acid Calcium Total Protein Albumin Lipase Urine pH 11/23/18 11/23/18 11/23/18 07:19 10:55 11:22 WBC RBC Hgb Hct MCV MCH MCHC RDW Lymph % (Auto) [place] % (Auto) Lymph # [place] # Seg Neutrophils % Seg Neuts % (Manual) Lymphocytes % (Manual) Monocytes % (Manual) Seg Neutrophils # Lymphocytes # (Manual) Sodium 136 L Potassium Chloride 97.5 L Carbon Dioxide 33 H BUN 5 L Creatinine 0.6 L Glucose 282 H POC Glucose 192 H 313 H Lactic Acid Calcium 8.2 L Total Protein Albumin Lipase Urine pH Allied health notes reviewed: nursing
--- NOTE | 2018-11-23 12:33 | Progress Note ---
Assessment and Plan Incarcerated right hernia with high-grade small bowel obstruction now developed ileus - improving - s/p bowel resection on 11/13/18 - cont iv fluid, had BM - cont post-op care per GS, cont iv fluid, off NG suction - advance diet as tolerated - full liquid diet today - planned for abdominal series in the am Right Upper lobe pneumonia, POA - was being treated as outpt - completed abx course in this admission with rocephin - Consulted pulmonary for persistent consolidation and increased white count - sputum Cx ordered - growing MRSA, blood cx negative - started on vancomycin, consult ID for abx recommendation - recommended bactrim till 11/30 - on contact isolation leukocytosis - likely from MRSA PNA - no fever, repeat blood Cx negative, sputum growing MRSA hypokalemia, replete, and monitor BMP Dark colored NG suction/GI bleed? - resolved - placed PPI, monitor h/h - stable Hypertension, stable Diabetes type 2 - check fingersticks initiate insulin sliding scale COPD, stable placed on nebs as needed - Severe PCM - dietary consult when able to take po lactic acidosis, due to bowel obstruction, trended down - DVT prophylaxis, SCD - GI Px with PPI Brief history: 77-year-old man with a history of hypertension, diabetes, COPD, who saw his director of culture on Dr. Pierce started on Levaquin for PNA. Since he started Levaquin for the last 3 days per the pt he has been having nausea vomiting, generalized weakness and decreased appetite. He stated he has not eaten in [address] abdomen/pelvis is concerning for high grade obstruction, GS consulted. CT abdomen/pelvis w contrast: 1. Incarcerated right inguinal hernia resulting in high-grade distal small bowel obstruction. 2. Noninflamed colonic diverticulosis. 3. Calcified gallstones. Subjective Date of service: 11/23/18 Principal diagnosis: Ch hypoxemic resp failure; SBO; RUL bronchiectasis; Adult FTT; COPD Interval history: Patient seen and examined having BM Family at bedside updated off NG tube, tolerating full liquid diet Objective - Exam Narrative Exam: General appearance: Present: mild distress, other (malnourished) - EENT Eyes: PERRL, EOM intact ENT: hearing intact, clear oral mucosa Ears: bilateral: normal - Neck Neck: supple, normal ROM - Respiratory Respiratory effort: normal Respiratory: bilateral: CTA - Cardiovascular Rhythm: regular Heart Sounds: Present: S1 & S2. Absent: gallop, rub Extremities: pulses intact, No edema, normal color, Full ROM - Gastrointestinal General gastrointestinal: Present: soft, hypoactive bowel sounds, intact surgical dressing on place - no bleeding - Integumentary Integumentary: clear, warm, dry - Musculoskeletal Musculoskeletal: 1, strength equal bilaterally - Neurologic Neurologic: moves all extremities - Psychiatric Psychiatric: memory intact, appropriate mood/affect, intact judgment & insight - Constitutional Vitals: Vital Signs - 12hr 11/23/18 11/23/18 11/23/18 05:14 07:12 08:00 Temperature 97.6 F 97.7 F Pulse Rate 75 71 Pulse Rate [ Anterior] Respiratory 16 20 Rate Respiratory Rate [Anterior] Blood Pressure 141/79 Blood Pressure 140/78 [Right] O2 Sat by Pulse 99 98 98 Oximetry 11/23/18 08:03 Temperature Pulse Rate Pulse Rate [ 72 Anterior] Respiratory Rate Respiratory 20 Rate [Anterior] Blood Pressure Blood Pressure [Right] O2 Sat by Pulse 98 Oximetry - Labs CBC & Chem 7: 11/22/18 06:02 11/24/18 04:24 Labs: Abnormal lab results 11/22/18 11/22/18 11/22/18 Range/Units 11:25 16:14 21:45 Sodium (137-145) mmol/L Chloride (98-107) mmol/L Carbon Dioxide (22-30) mmol/L BUN (9-20) mg/dL Creatinine (0.8-1.5) mg/dL Glucose (75-100) mg/dL POC Glucose 267 H 115 H 169 H (70-105) Calcium (8.4-10.2) mg/dL 11/23/18 11/23/18 11/23/18 Range/Units 07:19 10:55 11:22 Sodium 136 L (137-145) mmol/L Chloride 97.5 L (98-107) mmol/L Carbon Dioxide 33 H (22-30) mmol/L BUN 5 L (9-20) mg/dL Creatinine 0.6 L (0.8-1.5) mg/dL Glucose 282 H (75-100) mg/dL POC Glucose 192 H 313 H (70-105) Calcium 8.2 L (8.4-10.2) mg/dL
[2018-11-23] MEDS: D5W/NS W/KCL 20MEQ 20 MEQ/1,000 ML BAG IV SCH ×2 (17:17→20:30)
[2018-11-24 04:47] LABS: BUN/Creatinine Ratio 8; Blood Urea Nitrogen 5 mg/dL (9-20); Calcium 8.2 mg/dL (8.4-10.2); Hemolysis Index 5
[2018-11-24] MEDS: D5W/NS W/KCL 20MEQ 20 MEQ/1,000 ML BAG IV SCH ×2 (06:31→21:47)
[2018-11-24] MEDS: DUONEB *Not for PRN Use IH SCH ×3 (07:32→19:26)
[2018-11-24] MEDS: HumaLOG SUB-Q SCH ×4 (07:56→21:48)
[2018-11-24] MEDS: BACTRIM DS PO SCH ×2 (11:10→23:30)
[2018-11-24] MEDS: PROTONIX IV SCH ×2 (11:10→21:48)
--- NOTE | 2018-11-24 11:43 | XRay Report ---
ABDOMINAL SERIES WITH CHEST X-RAY HISTORY: Small bowel obstruction FINDINGS: Compared to 11/20/2018 FINDINGS: There is decreased gas throughout small and bowel loops since the previous exam suggesting improvemen t in ileus. No transition point or obstructive pattern is confidently identified. No free air or larg e fluid levels. Single view of the chest demonstrates patchy infiltrate near the right lung apex whic h is slightly increased since the previous exam. The remainder of the lungs are clear. Normal heart s ize. IMPRESSION: Probable improving ileus. Increasing airspace opacity in the right upper lobe. Signer Name: Pancho Crow Jr, MD Signed: 11/24/2018 11:39 AM Workstation Name: [id number]
--- NOTE | 2018-11-24 13:06 | Progress Note ---
Assessment and Plan Pt without specific complaints. family states that pt is daisy full liq diet and having BM's Abd still slightly distended. non tender abd series this am reviewed with radiologist. Ileus improving but still present. possible RUL pneumonia IMPRESSION: Probable improving ileus. Increasing airspace opacity in the right upper lobe. imp - as above clinically improving ileus surgically stable will advance to soft diet may consider d/c in am if diet daisy over 24 hrs without signs of abd pain, nausea or vomiting. rto this Fri Objective Vital Signs - 12hr 11/24/18 11/24/18 11/24/18 04:45 04:46 07:30 Temperature 97.6 F 98.3 F Pulse Rate 78 76 80 Pulse Rate [ Anterior Bilateral Throughout] Respiratory 16 20 Rate Respiratory Rate [Anterior Bilateral Throughout] Blood Pressure 131/73 Blood Pressure 118/60 [Right] O2 Sat by Pulse 97 97 100 Oximetry 11/24/18 11/24/18 07:32 11:09 Temperature 97.9 F Pulse Rate 75 Pulse Rate [ 81 Anterior Bilateral Throughout] Respiratory 20 Rate Respiratory 18 Rate [Anterior Bilateral Throughout] Blood Pressure 129/68 Blood Pressure [Right] O2 Sat by Pulse 99 96 Oximetry - Labs 11/22/18 06:02 11/24/18 04:24 Diabetes panel 11/24/18 Range/Units 04:24 Sodium 140 (137-145) mmol/L Potassium 3.9 (3.6-5.0) mmol/L Chloride 101.2 (98-107) mmol/L Carbon Dioxide 32 H (22-30) mmol/L BUN 5 L (9-20) mg/dL Creatinine 0.6 L (0.8-1.5) mg/dL Glucose 134 H (75-100) mg/dL Calcium 8.2 L (8.4-10.2) mg/dL Calcium panel 11/24/18 Range/Units 04:24 Calcium 8.2 L (8.4-10.2) mg/dL Pituitary panel 11/24/18 Range/Units 04:24 Sodium 140 (137-145) mmol/L Potassium 3.9 (3.6-5.0) mmol/L Chloride 101.2 (98-107) mmol/L Carbon Dioxide 32 H (22-30) mmol/L BUN 5 L (9-20) mg/dL Creatinine 0.6 L (0.8-1.5) mg/dL Glucose 134 H (75-100) mg/dL Calcium 8.2 L (8.4-10.2) mg/dL Adrenal panel 11/24/18 Range/Units 04:24 Sodium 140 (137-145) mmol/L Potassium 3.9 (3.6-5.0) mmol/L Chloride 101.2 (98-107) mmol/L Carbon Dioxide 32 H (22-30) mmol/L BUN 5 L (9-20) mg/dL Creatinine 0.6 L (0.8-1.5) mg/dL Glucose 134 H (75-100) mg/dL Calcium 8.2 L (8.4-10.2) mg/dL
[2018-11-24] MEDS: REGLAN PO SCH ×2 (14:28→21:47)
--- NOTE | 2018-11-24 15:26 | Progress Note ---
Assessment and Plan Incarcerated right hernia with high-grade small bowel obstruction now developed ileus - improving - s/p bowel resection on 11/13/18 - cont iv fluid, had BM - cont post-op care per GS, cont iv fluid, off NG suction - s/p abdominal series in the am today - showed improving ileus - cont to monitor pt per GS - advance diet as tolerated - soft diet today Right Upper lobe pneumonia, POA - was being treated as outpt - completed abx course in this admission with rocephin - Consulted pulmonary for persistent consolidation and increased white count - sputum Cx ordered - growing MRSA, blood cx negative - started on vancomycin, consult ID for abx recommendation - recommended bactrim till 11/30 - on contact isolation leukocytosis - likely from MRSA PNA - no fever, repeat blood Cx negative, sputum growing MRSA hypokalemia, replete, and monitor BMP Dark colored NG suction/GI bleed? - resolved - placed PPI, monitor h/h - stable Hypertension, stable Diabetes type 2 - check fingersticks initiate insulin sliding scale COPD, stable placed on nebs as needed - Severe PCM - dietary consult when able to take po lactic acidosis, due to bowel obstruction, trended down - DVT prophylaxis, SCD - GI Px with PPI Discharge planning: Per GS - didnot clear for d/c today Brief history: 77-year-old man with a history of hypertension, diabetes, COPD, who saw his licensed mortician on Dr. Pierce started on Levaquin for PNA. Since he started Levaquin for the last 3 days per the pt he has been having nausea vomiting, generalized weakness and decreased appetite. He stated he has not eaten in [address] abdomen/pelvis is concerning for high grade obstruction, GS consulted. CT abdomen/pelvis w contrast: 1. Incarcerated right inguinal hernia resulting in high-grade distal small bowel obstruction. 2. Noninflamed colonic diverticulosis. 3. Calcified gallstones. Subjective Date of service: 11/24/18 Principal diagnosis: Ch hypoxemic resp failure; SBO; RUL bronchiectasis; Adult FTT; COPD Interval history: Patient seen and examined having BM Family at bedside updated off NG tube, tolerating full liquid diet Objective - Exam Narrative Exam: General appearance: Present: mild distress, other (malnourished) - EENT Eyes: PERRL, EOM intact ENT: hearing intact, clear oral mucosa Ears: bilateral: normal - Neck Neck: supple, normal ROM - Respiratory Respiratory effort: normal Respiratory: bilateral: CTA - Cardiovascular Rhythm: regular Heart Sounds: Present: S1 & S2. Absent: gallop, rub Extremities: pulses intact, No edema, normal color, Full ROM - Gastrointestinal General gastrointestinal: Present: soft, + bowel sounds, intact surgical dressing on place - no bleeding - Integumentary Integumentary: clear, warm, dry - Musculoskeletal Musculoskeletal: 1, strength equal bilaterally - Neurologic Neurologic: moves all extremities - Psychiatric Psychiatric: memory intact, appropriate mood/affect, intact judgment & insight - Constitutional Vitals: Vital Signs - 12hr 11/24/18 11/24/18 11/24/18 04:45 04:46 07:30 Temperature 97.6 F 98.3 F Pulse Rate 78 76 80 Pulse Rate [ Anterior Bilateral Throughout] Respiratory 16 20 Rate Respiratory Rate [Anterior Bilateral Throughout] Blood Pressure 131/73 Blood Pressure 118/60 [Right] O2 Sat by Pulse 97 97 100 Oximetry 11/24/18 11/24/18 11/24/18 07:32 11:09 13:34 Temperature 97.9 F Pulse Rate 75 Pulse Rate [ 81 77 Anterior Bilateral Throughout] Respiratory 20 Rate Respiratory 18 18 Rate [Anterior Bilateral Throughout] Blood Pressure 129/68 Blood Pressure [Right] O2 Sat by Pulse 99 96 Oximetry - Labs CBC & Chem 7: 11/22/18 06:02 11/24/18 04:24 Labs: Abnormal lab results 11/23/18 11/23/18 11/24/18 Range/Units 16:06 21:55 04:24 Carbon Dioxide 32 H (22-30) mmol/L BUN 5 L (9-20) mg/dL Creatinine 0.6 L (0.8-1.5) mg/dL Glucose 134 H (75-100) mg/dL POC Glucose 225 H 260 H (70-105) Calcium 8.2 L (8.4-10.2) mg/dL 11/24/18 11/24/18 Range/Units 07:26 11:16 Carbon Dioxide (22-30) mmol/L BUN (9-20) mg/dL Creatinine (0.8-1.5) mg/dL Glucose (75-100) mg/dL POC Glucose 177 H 308 H (70-105) Calcium (8.4-10.2) mg/dL
--- NOTE | 2018-11-24 16:04 | Progress Note ---
Assessment and Plan Cultures: 11/20 SCx - MRSA 11/20 UCx - negative 11/20 BCx - NGTD A/P: Pt is a 77 yo M PMHx COPD on home O2, DM2, HTN who was admitted to [facility] with nausea, vomiting, and SOB 1. MRSA pneumonia - while sputum culture had few WBC, so this may be a contaminant. Given it was taken as his leukocytosis was worsening, and worse symptoms with sputum production I would complete a course. Can continue vancomycin for now, de-escalate to Bactrim pending improvement. CXR with increasing consolidation. Possibly evolving, CXR findings lag behind clinical picture. If symptoms worsen consider bronch an/or change back to vancomycin. 2. incarcerated hernia - resolved 3. COPD on home O2 4. Penicillin allergy 5. DM2 - Maintain good control for improved immune function 6. HTN Recs: - plan to discharge on Bactrim DS BID. Complete 8 day course from vancomycin initiation. Stop date: 11/30 - monitor renal function while on Bactrim G. Rupinder Horan MD [facility] M: [phone] O: [phone] F: [phone] Subjective Date of service: 11/24/18 Principal diagnosis: Ch hypoxemic resp failure; SBO; RUL bronchiectasis; Adult FTT; COPD Interval history: No new complaints. Now tolerating diet. Objective - Exam Narrative Exam: Physical Exam: Constitutional: Alert, cooperative. No acute distress Head, Ears, Nose: Normocephalic, atraumatic. External ears, nose normal Eyes: Conjunctivae/corneas clear. No icterus. No ptosis. Neck: Supple, no meningeal signs Oral: dentition fair, no thrush Cardiovascular: S1, S2 normal. Respiratory: Hyper-resonant, no crackles GI: Soft, non-tender; bowel sounds normal. No peritoneal signs. Musculoskeletal: No pedal edema, no cyanosis. Skin: No rash or abscess Hem/Lymphatic: No palpable cervical or supraclavicular nodes. No lymphangitis Psych: Mood ok. Affect normal Neurological: Awake, alert, oriented. No gross abnormality - Constitutional Vitals: Vital Signs Temp Pulse Resp BP Pulse Ox 97.9 F 77 18 129/68 96 11/24/18 11:09 11/24/18 13:34 11/24/18 13:34 11/24/18 11:09 11/24/18 11:09 Temperature -Last 24 Hours Temperature 97.9 F Temperature 98.3 F Temperature 97.6 F Temperature 97.9 F Temperature 98.0 F Temperature 97.1 F - Labs CBC & Chem 7: 11/22/18 06:02 11/24/18 04:24 Labs: Abnormal lab results 11/23/18 11/24/18 11/24/18 Range/Units 21:55 04:24 07:26 Carbon Dioxide 32 H (22-30) mmol/L BUN 5 L (9-20) mg/dL Creatinine 0.6 L (0.8-1.5) mg/dL Glucose 134 H (75-100) mg/dL POC Glucose 260 H 177 H (70-105) Calcium 8.2 L (8.4-10.2) mg/dL 11/24/18 Range/Units 11:16 Carbon Dioxide (22-30) mmol/L BUN (9-20) mg/dL Creatinine (0.8-1.5) mg/dL Glucose (75-100) mg/dL POC Glucose 308 H (70-105) Calcium (8.4-10.2) mg/dL
--- NOTE | 2018-11-24 18:02 | Progress Note ---
Assessment and Plan Patient awake. Resting on 2L O2 NC. No complaint of chest pain or SOB or cough. O2 saturation 98% on 2L O2. Patient afebrile, no leukocytosis. Patient undergone laparotomy for incarcerated inguinal hernia. - Patient Problems (1) Right upper lobe pulmonary infiltrate Current Visit: Yes Status: Acute Plan to address problem: Patient afebrile, no leukocytosis. Patient is on Bactrim. (2) Inguinal hernia Current Visit: Yes Status: Acute Plan to address problem: Patient undergone laparotomy and repair of incarcerated R inguinal hernia. Subjective Date of service: 11/24/18 Principal diagnosis: Ch hypoxemic resp failure; SBO; RUL bronchiectasis; Adult FTT; COPD Interval history: Patient awake. Resting on 2L O2 NC. No complaint of chest pain or SOB or cough. O2 saturation 98% on 2L O2. Patient afebrile, no leukocytosis. Patient undergone laparotomy for incarcerated inguinal hernia. Objective Vital Signs - 12hr 11/24/18 11/24/18 11/24/18 07:30 07:32 11:09 Temperature 98.3 F 97.9 F Pulse Rate 80 75 Pulse Rate [ 81 Anterior Bilateral Throughout] Respiratory 20 20 Rate Respiratory 18 Rate [Anterior Bilateral Throughout] Blood Pressure 129/68 Blood Pressure 118/60 [Right] O2 Sat by Pulse 100 99 96 Oximetry 11/24/18 11/24/18 13:34 16:26 Temperature 97.6 F Pulse Rate 86 Pulse Rate [ 77 Anterior Bilateral Throughout] Respiratory 18 Rate Respiratory 18 Rate [Anterior Bilateral Throughout] Blood Pressure 116/57 Blood Pressure [Right] O2 Sat by Pulse 95 Oximetry Constitutional: no acute distress, alert, other (elderly and chronically ill looking male, normocephalic and atraumatic) Eyes: non-icteric ENT: oropharynx moist Neck: supple, no lymphadenopathy, no JVD Effort: mildly labored Ascultation: Bilateral: diminished breath sounds, rhonchi Percussion: Bilateral: not dull Cardiovascular: regular rate and rhythm Gastrointestinal: normoactive bowel sounds, hypoactive bowel sounds, soft, non- tender, other (midline abdominal sutures) Integumentary: other (midline abdominal sutures) Extremities: no cyanosis, no edema, pink and warm, pulses normal Neurologic: non-focal exam (grossly), CN II-XII normal, motor strength normal and Psychiatric: mood appropriate, affect normal CBC and BMP: 11/22/18 06:02 11/24/18 04:24 Abnormal lab findings: Abnormal Labs 11/12/18 11/12/18 11/12/18 16:07 16:07 21:29 WBC RBC 6.29 H Hgb Hct MCV 69 L MCH 23 L MCHC RDW 15.4 H Lymph % (Auto) 9.7 L [place] % (Auto) 14.0 H Lymph # 0.8 L [place] # 1.2 H Seg Neutrophils % 76.1 H Seg Neuts % (Manual) Lymphocytes % (Manual) Monocytes % (Manual) Seg Neutrophils # Lymphocytes # (Manual) Sodium 135 L Potassium Chloride 91.3 L Carbon Dioxide BUN 31 H Creatinine Glucose 228 H POC Glucose Lactic Acid 3.10 H* Calcium Total Protein Albumin Lipase 11 L Urine pH 11/12/18 11/13/18 11/13/18 21:30 04:51 04:51 WBC RBC 5.68 H Hgb Hct MCV 68 L MCH 22 L MCHC RDW Lymph % (Auto) [place] % (Auto) Lymph # [place] # Seg Neutrophils % Seg Neuts % (Manual) Lymphocytes % (Manual) Monocytes % (Manual) Seg Neutrophils # Lymphocytes # (Manual) Sodium 136 L Potassium Chloride 97.5 L Carbon Dioxide BUN 27 H Creatinine Glucose 164 H POC Glucose 211 H Lactic Acid Calcium Total Protein Albumin Lipase Urine pH 11/13/18 11/13/18 11/13/18 09:09 09:31 13:10 WBC RBC Hgb Hct MCV MCH MCHC RDW Lymph % (Auto) [place] % (Auto) Lymph # [place] # Seg Neutrophils % Seg Neuts % (Manual) Lymphocytes % (Manual) Monocytes % (Manual) Seg Neutrophils # Lymphocytes # (Manual) Sodium Potassium Chloride Carbon Dioxide BUN Creatinine Glucose POC Glucose 169 H 224 H Lactic Acid 2.10 H* Calcium Total Protein Albumin Lipase Urine pH 11/13/18 11/13/18 11/14/18 17:34 21:13 00:01 WBC RBC Hgb Hct MCV MCH MCHC RDW Lymph % (Auto) [place] % (Auto) Lymph # [place] # Seg Neutrophils % Seg Neuts % (Manual) Lymphocytes % (Manual) Monocytes % (Manual) Seg Neutrophils # Lymphocytes # (Manual) Sodium Potassium Chloride Carbon Dioxide BUN Creatinine Glucose POC Glucose 217 H 166 H 180 H Lactic Acid Calcium Total Protein Albumin Lipase Urine pH 11/14/18 11/14/18 11/14/18 05:15 05:15 13:10 WBC RBC 6.10 H Hgb Hct MCV 70 L MCH 22 L MCHC RDW Lymph % (Auto) 2.2 L [place] % (Auto) 9.5 H Lymph # 0.2 L [place] # 0.9 H Seg Neutrophils % 88.2 H Seg Neuts % (Manual) Lymphocytes % (Manual) Monocytes % (Manual) Seg Neutrophils # 8.0 H Lymphocytes # (Manual) Sodium Potassium Chloride Carbon Dioxide BUN Creatinine Glucose 263 H POC Glucose 292 H Lactic Acid Calcium 8.0 L Total Protein 5.9 L D Albumin 3.1 L Lipase Urine pH 11/14/18 11/15/18 11/15/18 16:14 08:38 11:23 WBC RBC Hgb Hct MCV MCH MCHC RDW Lymph % (Auto) [place] % (Auto) Lymph # [place] # Seg Neutrophils % Seg Neuts % (Manual) Lymphocytes % (Manual) Monocytes % (Manual) Seg Neutrophils # Lymphocytes # (Manual) Sodium 136 L Potassium 3.4 L D Chloride Carbon Dioxide BUN Creatinine 0.7 L Glucose 212 H POC Glucose 245 H 226 H Lactic Acid Calcium 8.1 L Total Protein Albumin Lipase Urine pH 11/15/18 11/15/18 11/16/18 17:53 22:13 06:20 WBC RBC Hgb Hct MCV MCH MCHC RDW Lymph % (Auto) [place] % (Auto) Lymph # [place] # Seg Neutrophils % Seg Neuts % (Manual) Lymphocytes % (Manual) Monocytes % (Manual) Seg Neutrophils # Lymphocytes # (Manual) Sodium 136 L Potassium 3.4 L Chloride 96.6 L Carbon Dioxide BUN 8 L Creatinine 0.6 L Glucose 209 H POC Glucose 180 H 161 H Lactic Acid Calcium 8.1 L Total Protein Albumin Lipase Urine pH 11/16/18 11/16/18 11/16/18 08:09 11:38 16:09 WBC RBC Hgb Hct MCV MCH MCHC RDW Lymph % (Auto) [place] % (Auto) Lymph # [place] # Seg Neutrophils % Seg Neuts % (Manual) Lymphocytes % (Manual) Monocytes % (Manual) Seg Neutrophils # Lymphocytes # (Manual) Sodium Potassium Chloride Carbon Dioxide BUN Creatinine Glucose POC Glucose 217 H 189 H 106 H Lactic Acid Calcium Total Protein Albumin Lipase Urine pH 09/01/19 09/02/19 09/02/19 21:58 06:17 06:17 WBC RBC 5.32 H Hgb Hct MCV 68 L MCH 23 L MCHC RDW Lymph % (Auto) [place] % (Auto) Lymph # [place] # Seg Neutrophils % Seg Neuts % (Manual) 74.0 H Lymphocytes % (Manual) 12.0 L Monocytes % (Manual) 11.0 H Seg Neutrophils # Lymphocytes # (Manual) 0.7 L Sodium 136 L Potassium Chloride 96.3 L Carbon Dioxide BUN Creatinine 0.6 L Glucose 202 H POC Glucose 172 H Lactic Acid Calcium 8.0 L Total Protein Albumin Lipase Urine pH 11/17/18 11/17/18 11/17/18 07:14 11:34 16:10 WBC RBC Hgb Hct MCV MCH MCHC RDW Lymph % (Auto) [place] % (Auto) Lymph # [place] # Seg Neutrophils % Seg Neuts % (Manual) Lymphocytes % (Manual) Monocytes % (Manual) Seg Neutrophils # Lymphocytes # (Manual) Sodium Potassium Chloride Carbon Dioxide BUN Creatinine Glucose POC Glucose 189 H 159 H 157 H Lactic Acid Calcium Total Protein Albumin Lipase Urine pH 11/17/18 11/18/18 11/18/18 21:40 04:25 07:48 WBC RBC Hgb Hct MCV MCH MCHC RDW Lymph % (Auto) [place] % (Auto) Lymph # [place] # Seg Neutrophils % Seg Neuts % (Manual) Lymphocytes % (Manual) Monocytes % (Manual) Seg Neutrophils # Lymphocytes # (Manual) Sodium 135 L Potassium Chloride 95.8 L Carbon Dioxide BUN 8 L Creatinine 0.6 L Glucose 204 H POC Glucose 120 H 212 H Lactic Acid Calcium 8.0 L Total Protein Albumin Lipase Urine pH 11/18/18 11/18/18 11/18/18 11:41 16:16 21:16 WBC RBC Hgb Hct MCV MCH MCHC RDW Lymph % (Auto) [place] % (Auto) Lymph # [place] # Seg Neutrophils % Seg Neuts % (Manual) Lymphocytes % (Manual) Monocytes % (Manual) Seg Neutrophils # Lymphocytes # (Manual) Sodium Potassium Chloride Carbon Dioxide BUN Creatinine Glucose POC Glucose 129 H 152 H 112 H Lactic Acid Calcium Total Protein Albumin Lipase Urine pH 11/19/18 11/19/18 11/19/18 06:14 08:07 11:55 WBC 13.3 H RBC 5.44 H Hgb 11.7 L Hct MCV 68 L MCH 22 L MCHC 31 L RDW Lymph % (Auto) 9.2 L [place] % (Auto) 11.6 H Lymph # [place] # 1.5 H Seg Neutrophils % 77.1 H Seg Neuts % (Manual) Lymphocytes % (Manual) Monocytes % (Manual) Seg Neutrophils # 10.3 H Lymphocytes # (Manual) Sodium Potassium Chloride Carbon Dioxide BUN Creatinine Glucose POC Glucose 225 H 243 H Lactic Acid Calcium Total Protein Albumin Lipase Urine pH 11/19/18 11/19/18 11/20/18 16:44 20:51 04:19 WBC 14.5 H RBC 5.04 H Hgb 11.2 L Hct 34.1 L MCV 68 L MCH 22 L MCHC RDW Lymph % (Auto) 8.1 L [place] % (Auto) 9.5 H Lymph # [place] # 1.4 H Seg Neutrophils % 81.0 H Seg Neuts % (Manual) Lymphocytes % (Manual) Monocytes % (Manual) Seg Neutrophils # 11.8 H Lymphocytes # (Manual) Sodium Potassium Chloride Carbon Dioxide BUN Creatinine Glucose POC Glucose 195 H 179 H Lactic Acid Calcium Total Protein Albumin Lipase Urine pH 11/20/18 11/20/18 11/20/18 04:19 07:55 12:05 WBC RBC Hgb Hct MCV MCH MCHC RDW Lymph % (Auto) [place] % (Auto) Lymph # [place] # Seg Neutrophils % Seg Neuts % (Manual) Lymphocytes % (Manual) Monocytes % (Manual) Seg Neutrophils # Lymphocytes # (Manual) Sodium Potassium 3.1 L Chloride 97.9 L Carbon Dioxide 33 H BUN 5 L Creatinine 0.6 L Glucose 226 H POC Glucose 218 H 121 H Lactic Acid Calcium 7.9 L Total Protein Albumin Lipase Urine pH 11/20/18 11/20/18 11/21/18 16:59 20:49 06:04 WBC RBC Hgb 11.0 L Hct 34.7 L MCV 69 L MCH 22 L MCHC RDW Lymph % (Auto) [place] % (Auto) 9.5 H Lymph # [place] # 0.9 H Seg Neutrophils % 73.1 H Seg Neuts % (Manual) Lymphocytes % (Manual) Monocytes % (Manual) Seg Neutrophils # Lymphocytes # (Manual) Sodium Potassium Chloride Carbon Dioxide BUN Creatinine Glucose POC Glucose 117 H 118 H Lactic Acid Calcium Total Protein Albumin Lipase Urine pH 11/21/18 11/21/18 11/21/18 06:04 07:51 11:40 WBC RBC Hgb Hct MCV MCH MCHC RDW Lymph % (Auto) [place] % (Auto) Lymph # [place] # Seg Neutrophils % Seg Neuts % (Manual) Lymphocytes % (Manual) Monocytes % (Manual) Seg Neutrophils # Lymphocytes # (Manual) Sodium Potassium 3.3 L Chloride 96.9 L Carbon Dioxide 33 H BUN 8 L Creatinine 0.7 L Glucose 189 H POC Glucose 191 H 221 H Lactic Acid Calcium 8.0 L Total Protein Albumin Lipase Urine pH 11/21/18 11/21/18 11/21/18 16:20 21:07 Unknown WBC RBC Hgb Hct MCV MCH MCHC RDW Lymph % (Auto) [place] % (Auto) Lymph # [place] # Seg Neutrophils % Seg Neuts % (Manual) Lymphocytes % (Manual) Monocytes % (Manual) Seg Neutrophils # Lymphocytes # (Manual) Sodium Potassium Chloride Carbon Dioxide BUN Creatinine Glucose POC Glucose 179 H 253 H Lactic Acid Calcium Total Protein Albumin Lipase Urine pH 8.0 H 11/22/18 11/22/18 11/22/18 06:02 06:02 07:23 WBC RBC 5.57 H Hgb Hct MCV 68 L MCH 22 L MCHC RDW Lymph % (Auto) [place] % (Auto) 9.3 H Lymph # [place] # 1.0 H Seg Neutrophils % 73.4 H Seg Neuts % (Manual) Lymphocytes % (Manual) Monocytes % (Manual) Seg Neutrophils # Lymphocytes # (Manual) Sodium Potassium Chloride 97.7 L Carbon Dioxide 31 H BUN 6 L Creatinine 0.6 L Glucose 161 H POC Glucose 165 H Lactic Acid Calcium Total Protein Albumin Lipase Urine pH 11/22/18 11/22/18 11/22/18 11:25 16:14 21:45 WBC RBC Hgb Hct MCV MCH MCHC RDW Lymph % (Auto) [place] % (Auto) Lymph # [place] # Seg Neutrophils % Seg Neuts % (Manual) Lymphocytes % (Manual) Monocytes % (Manual) Seg Neutrophils # Lymphocytes # (Manual) Sodium Potassium Chloride Carbon Dioxide BUN Creatinine Glucose POC Glucose 267 H 115 H 169 H Lactic Acid Calcium Total Protein Albumin Lipase Urine pH 11/23/18 11/23/18 11/23/18 07:19 10:55 11:22 WBC RBC Hgb Hct MCV MCH MCHC RDW Lymph % (Auto) [place] % (Auto) Lymph # [place] # Seg Neutrophils % Seg Neuts % (Manual) Lymphocytes % (Manual) Monocytes % (Manual) Seg Neutrophils # Lymphocytes # (Manual) Sodium 136 L Potassium Chloride 97.5 L Carbon Dioxide 33 H BUN 5 L Creatinine 0.6 L Glucose 282 H POC Glucose 192 H 313 H Lactic Acid Calcium 8.2 L Total Protein Albumin Lipase Urine pH 11/23/18 11/23/18 11/24/18 16:06 21:55 04:24 WBC RBC Hgb Hct MCV MCH MCHC RDW Lymph % (Auto) [place] % (Auto) Lymph # [place] # Seg Neutrophils % Seg Neuts % (Manual) Lymphocytes % (Manual) Monocytes % (Manual) Seg Neutrophils # Lymphocytes # (Manual) Sodium Potassium Chloride Carbon Dioxide 32 H BUN 5 L Creatinine 0.6 L Glucose 134 H POC Glucose 225 H 260 H Lactic Acid Calcium 8.2 L Total Protein Albumin Lipase Urine pH 11/24/18 11/24/18 11/24/18 07:26 11:16 16:30 WBC RBC Hgb Hct MCV MCH MCHC RDW Lymph % (Auto) [place] % (Auto) Lymph # [place] # Seg Neutrophils % Seg Neuts % (Manual) Lymphocytes % (Manual) Monocytes % (Manual) Seg Neutrophils # Lymphocytes # (Manual) Sodium Potassium Chloride Carbon Dioxide BUN Creatinine Glucose POC Glucose 177 H 308 H 193 H Lactic Acid Calcium Total Protein Albumin Lipase Urine pH Chest x-ray: report reviewed, image reviewed Additional Studies: ABDOMINAL SERIES WITH CHEST X-RAY HISTORY: Small bowel obstruction FINDINGS: Compared to 11/20/2018 FINDINGS: There is decreased gas throughout small and bowel loops since the previous exam suggesting improvement in ileus. No transition point or obstructive pattern is confidently identified. No free air or large fluid levels. Single view of the chest demonstrates patchy infi ltrate near the right lung apex which is slightly increased since the previous exam. The remainder of the lungs are clear. Normal heart size. IMPRESSION: Probable improving ileus. Increasing airspace opacity in the right upper lobe. Allied health notes reviewed: nursing
[2018-11-24] MEDS: SODIUM CHLORIDE FLUSH SYRINGE 10 ML IV SCH (21:48)
[2018-11-25 06:11] LABS: Basophils % (Auto) 0.5 % (0.0-1.8); Eosinophils # (Auto) 0.1 K/mm3 (0.0-0.4); Hematocrit 34.5 % (35.5-45.6); Hemoglobin 11.2 gm/dl (11.8-15.2); Lymphocytes # (Auto) 1.8 K/mm3 (1.2-5.4); Lymphocytes % (Auto) 26.5 % (13.4-35.0); Mean Corpuscular HGB Conc 32 % (32-34); Monocytes # (Auto) 0.7 K/mm3 (0.0-0.8); Monocytes % (Auto) 10.1 % (0.0-7.3); Platelet Count 312 K/mm3 (140-440); Red Blood Count 5.03 M/mm3 (3.65-5.03); Red Cell Distribution Width 14.5 % (13.2-15.2)
[2018-11-25 06:19] LABS: BUN/Creatinine Ratio 6; Blood Urea Nitrogen 5 mg/dL (9-20); Calcium 8.5 mg/dL (8.4-10.2); Hemolysis Index 0
[2018-11-25 06:26] LABS: Mean Corpuscular Volume 69 fl (84-94)
[2018-11-25] MEDS: REGLAN PO SCH ×3 (06:43→22:16)
[2018-11-25] MEDS ORDERED: PULMICORT IH SCH (08:00)
[2018-11-25] MEDS: HumaLOG SUB-Q SCH ×4 (08:24→22:17)
[2018-11-25] MEDS: DUONEB *Not for PRN Use IH SCH ×3 (09:24→20:59)
[2018-11-25] MEDS: PULMICORT IH SCH ×2 (09:24→20:57)
[2018-11-25] MEDS: BROVANA NEBU IH SCH ×2 (09:24→20:57)
[2018-11-25] MEDS ORDERED: NON-FORMULARY (Fluticasone/Vilanterol [Breo Ellipta 100-25 Mcg Inh] 1 EACH) IH SCH (10:00)
[2018-11-25] MEDS: PROTONIX PO SCH ×2 (10:55→22:15)
[2018-11-25] MEDS: BACTRIM DS PO SCH ×2 (10:55→22:16)
--- NOTE | 2018-11-25 11:03 | Progress Note ---
Assessment and Plan Assessment and plan: Patient is a 77-year-old [place] man with a history of hypertension, DM type 2 and COPD who presented to [facility] with N/V and decreased appetite. He was recently treated for pneumonia with Levaquin. * CT abdomen/pelvis w contrast: 1. Incarcerated right inguinal hernia resulting in high-grade distal small bowel obstruction. 2. Noninflamed colonic diverticulosis. 3. Calcified gallstones. Incarcerated right hernia with high-grade small bowel obstruction now developed Ileus - improving - s/p bowel resection on 11/13/18 - cont iv fluid, had BM - cont post-op care per , cont iv fluid, off NG suction - s/p abdominal series in the am today - showed improving ileus - cont to monitor pt per - advance diet as tolerated - soft diet today Right Upper lobe MRSA pneumonia, POA - was being treated as outpt - completed abx course in this admission with rocephin - Consulted pulmonary for persistent consolidation and increased white count - sputum Cx ordered - growing MRSA, blood cx negative - started on vancomycin, consult ID for abx recommendation - recommended bactrim till 11/30 - on contact isolation leukocytosis with Sepsis, poa as evident by HR 95, RR 24 with pna - likely from MRSA PNA - no fever, repeat blood Cx negative, sputum growing MRSA - finished coarse of Antibiotics Hypokalemia, replete, and monitor BMP NG tube in place, Dark colored NG suction unlikely GI bleed - resolved Hypertension, stable Diabetes mellitus type 2- check fingersticks initiate insulin sliding scale COPD, stable placed on nebs as needed Severe malnutrition, poa - dietary consult when able to take po Lactic acidosis, due to bowel obstruction, trended down DVT prophylaxis, SCD GI Px with PPI Discharge planning: Per History Interval history: Patient was seen and examined. Follow-up on current diagnosis of SBO. Overnight uneventful. Patient denies any chest pain, shortness breath, nausea/vomiting or severe headaches. Imaging, nursing note, chart, labs and old chart reviewed. Discussed with patient. Hospitalist Physical - Physical exam Narrative exam: Gen: thin cachetic, BMI 17.8, NAD, Awake, Alert, Orientated x 1 HEENT: NCAT, EOMI, PERRL, OP Clear Neck: supple, no adenopathy, no thyromegaly, no JVD CVS/Heart: RRR, normal S1S2, pulses present bilaterally Chest/Lungs: CTA B, Symmetrical chest expansion, good air entry bilaterally GI/Abdomen: soft, dressings in place, +bowel sounds, no guarding or rebound /Bladder: no suprapubic tenderness, no CVA or paraspinal tenderness Extermity/Skin: no c/c/e, no obvious rash MSK: FROM x 4 Neuro: CN 2-12 grossly intact, no new focal deficits Psych: calm - Constitutional Vitals: Temp Pulse Resp BP Pulse Ox 97.9 F 77 22 141/72 97 11/25/18 08:42 11/25/18 08:42 11/25/18 09:50 11/25/18 08:42 11/25/18 09:29 General appearance: Present: other (malnourished). Absent: mild distress Results - Labs CBC & Chem 7: 11/25/18 05:45 11/25/18 05:45 Labs: Laboratory Last Values WBC 6.9 K/mm3 (4.5-11.0) 11/25/18 05:45 RBC 5.03 M/mm3 (3.65-5.03) 11/25/18 05:45 Hgb 11.2 gm/dl (11.8-15.2) L 11/25/18 05:45 Hct 34.5 % (35.5-45.6) L 11/25/18 05:45 MCV 69 fl (84-94) L 11/25/18 05:45 MCH 22 pg (28-32) L 11/25/18 05:45 MCHC 32 % (32-34) 11/25/18 05:45 RDW 14.5 % (13.2-15.2) 11/25/18 05:45 Plt Count 312 K/mm3 (140-440) 11/25/18 05:45 Lymph % (Auto) 26.5 % (13.4-35.0) 11/25/18 05:45 Cross % (Auto) 10.1 % (0.0-7.3) H 11/25/18 05:45 Eos % (Auto) 2.0 % (0.0-4.3) 11/25/18 05:45 Baso % (Auto) 0.5 % (0.0-1.8) 11/25/18 05:45 Lymph # 1.8 K/mm3 (1.2-5.4) 11/25/18 05:45 Cross # 0.7 K/mm3 (0.0-0.8) 11/25/18 05:45 Eos # 0.1 K/mm3 (0.0-0.4) 11/25/18 05:45 Baso # 0.0 K/mm3 (0.0-0.1) 11/25/18 05:45 Add Manual Diff Complete 11/17/18 06:17 Total Counted 100 11/17/18 06:17 Seg Neutrophils % 60.9 % (40.0-70.0) 11/25/18 05:45 Seg Neuts % (Manual) 74.0 % (40.0-70.0) H 11/17/18 06:17 0 % 11/17/18 06:17 12.0 % (13.4-35.0) L 11/17/18 06:17 Reactive Lymphs % (Man) 0 % 11/17/18 06:17 11.0 % (0.0-7.3) H 11/17/18 06:17 3.0 % (0.0-4.3) 11/17/18 06:17 0 % (0.0-1.8) 11/17/18 06:17 0 % 11/17/18 06:17 0 % 11/17/18 06:17 0 % 11/17/18 06:17 0 % 11/17/18 06:17 Nucleated RBC % Not Reportable 11/17/18 06:17 Seg Neutrophils # 4.2 K/mm3 (1.8-7.7) 11/25/18 05:45 Seg Neutrophils # Man 4.6 K/mm3 (1.8-7.7) 11/17/18 06:17 Band Neutrophils # 0.0 K/mm3 11/17/18 06:17 0.7 K/mm3 (1.2-5.4) L 11/17/18 06:17 Abs React Lymphs (Man) 0.0 K/mm3 11/17/18 06:17 0.7 K/mm3 (0.0-0.8) 11/17/18 06:17 0.2 K/mm3 (0.0-0.4) 11/17/18 06:17 0.0 K/mm3 (0.0-0.1) 11/17/18 06:17 0.0 K/mm3 11/17/18 06:17 0.0 K/mm3 11/17/18 06:17 0.0 K/mm3 11/17/18 06:17 Blast Cells # 0.0 K/mm3 11/17/18 06:17 WBC Morphology Not Reportable 11/17/18 06:17 Hypersegmented Neuts Not Reportable 11/17/18 06:17 Hyposegmented Neuts Not Reportable 11/17/18 06:17 Hypogranular Neuts Not Reportable 11/17/18 06:17 Not Reportable 11/17/18 06:17 Not Reportable 11/17/18 06:17 Not Reportable 11/17/18 06:17 Not Reportable 11/17/18 06:17 Not Reportable 11/17/18 06:17 Not Reportable 11/17/18 06:17 Consistent w auto 11/17/18 06:17 Not Reportable 11/17/18 06:17 Plt Clumps, EDTA Not Reportable 11/17/18 06:17 Not Reportable 11/17/18 06:17 Not Reportable 11/17/18 06:17 Not Reportable 11/17/18 06:17 Plt Morphology Comment Not Reportable 11/17/18 06:17 RBC Morphology Not Reportable 11/17/18 06:17 Dimorphic RBCs Not Reportable 11/17/18 06:17 Not Reportable 11/17/18 06:17 Not Reportable 11/17/18 06:17 Not Reportable 11/17/18 06:17 1+ 11/17/18 06:17 Few 11/17/18 06:17 Not Reportable 11/17/18 06:17 Not Reportable 11/17/18 06:17 Not Reportable 11/17/18 06:17 Not Reportable 11/17/18 06:17 Few 11/17/18 06:17 Rare 11/17/18 06:17 Not Reportable 11/17/18 06:17 Not Reportable 11/17/18 06:17 Not Reportable 11/17/18 06:17 Not Reportable 11/17/18 06:17 Not Reportable 11/17/18 06:17 Not Reportable 11/17/18 06:17 Not Reportable 11/17/18 06:17 Rare 11/17/18 06:17 Acanthocytes (Spur) Not Reportable 11/17/18 06:17 Rouleaux Not Reportable 11/17/18 06:17 Not Reportable 11/17/18 06:17 Not Reportable 11/17/18 06:17 Not Reportable 11/17/18 06:17 Not Reportable 11/17/18 06:17 Hem Pathologist Commnt No 11/17/18 06:17 Sodium 140 mmol/L (137-145) 11/25/18 05:45 Potassium 4.1 mmol/L (3.6-5.0) 11/25/18 05:45 Chloride 101.6 mmol/L (98-107) 11/25/18 05:45 Carbon Dioxide 31 mmol/L (22-30) H 11/25/18 05:45 12 mmol/L 11/25/18 05:45 BUN 5 mg/dL (9-20) L 11/25/18 05:45 0.8 mg/dL (0.8-1.5) 11/25/18 05:45 Estimated GFR > 60 ml/min 11/25/18 05:45 6 % 11/25/18 05:45 Glucose 205 mg/dL (75-100) H 11/25/18 05:45 POC Glucose 186 (70-105) H 11/25/18 07:48 Lactic Acid 1.90 mmol/L (0.7-2.0) 11/14/18 05:15 Calcium 8.5 mg/dL (8.4-10.2) 11/25/18 05:45 0.50 mg/dL (0.1-1.2) 11/14/18 05:15 AST 14 units/L (5-40) 11/14/18 05:15 ALT 9 units/L (7-56) 11/14/18 05:15 52 units/L (35-129) 11/14/18 05:15 5.9 g/dL (6.3-8.2) L D 11/14/18 05:15 3.1 g/dL (3.9-5) L 11/14/18 05:15 1.1 % 11/14/18 05:15 11 units/L (13-60) L 11/12/18 16:07 Straw (Yellow) 11/21/18 Unknown Clear (Clear) 11/21/18 Unknown 8.0 (5.0-7.0) H 11/21/18 Unknown Ur Specific Bruin 1.009 (1.003-1.030) 11/21/18 Unknown <15 mg/dl mg/dL (Negative) 11/21/18 Unknown Neg mg/dL (Negative) 11/21/18 Unknown Neg mg/dL (Negative) 11/21/18 Unknown Neg (Negative) 11/21/18 Unknown Neg (Negative) 11/21/18 Unknown Neg (Negative) 11/21/18 Unknown < 2.0 mg/dL (<2.0) 11/21/18 Unknown Ur Leukocyte Esterase Neg (Negative) 11/21/18 Unknown < 1.0 /HPF (0.0-6.0) 11/21/18 Unknown 2.0 /HPF (0.0-6.0) 11/21/18 Unknown U Epithel Cells (Auto) < 1.0 /HPF (0-13.0) 11/21/18 Unknown Few /HPF 11/21/18 Unknown Active Medications - Current Medications Current Medications: Generic Name Dose Route Start Last Admin Trade Name Freq PRN Reason Stop Dose Admin Acetaminophen 650 mg 11/12/18 21:57 11/25/18 08:50 Tylenol PO 650 mg Q4H PRN Administration Pain MILD(1-3)/Fever >100.5/QUINTEROS Albuterol 2.5 mg 11/21/18 21:49 Proventil IH Q4HRT PRN Dyspnea Albuterol/Ipratropium 1 ampul 11/18/18 08:00 11/25/18 09:24 Duoneb *Not For Prn Use* IH 1 ampul TIDRT BRYANT Administration Arformoterol Tartrate 15 mcg 11/25/18 08:00 11/25/18 09:24 Brovana Nebu IH 15 mcg Q12HRT BRYANT Administration Atorvastatin Calcium 10 mg 11/25/18 22:00 Lipitor PO QHS BRYANT Budesonide 0.5 mg 11/25/18 08:00 11/25/18 09:24 Pulmicort IH 0.5 mg Q12HRT BRYANT Administration Dextrose 50 ml 11/13/18 00:31 D50w (25gm) Syringe IV PRN PRN Hypoglycemia Enoxaparin Sodium 40 mg 11/25/18 22:00 Lovenox SUB-Q QDAY@2200 BRYANT Hydralazine HCl 10 mg 11/14/18 03:02 Apresoline IV Q4HR PRN Blood Pressure Insulin Human Lispro 0 unit 11/13/18 07:30 11/25/18 08:24 Humalog SUB-Q 1 unit ACHS BRYANT Administration Protocol Metoclopramide HCl 5 mg 11/24/18 14:00 11/25/18 06:43 Reglan PO 5 mg Q8H BRYANT Administration Ondansetron HCl 4 mg 11/12/18 21:57 Zofran IV Q8H PRN Nausea And Vomiting Pantoprazole Sodium 40 mg 11/25/18 10:00 11/25/18 10:55 Protonix PO 40 mg BID BRYANT Administration Phenol 1 spray 11/15/18 10:42 11/19/18 09:02 Chloraseptic MM 1 spray PRN PRN Administration Sore Throat Sodium Chloride 10 ml 11/12/18 22:00 11/24/18 21:48 Sodium Chloride Flush Syringe 10 Ml IV 10 ml BID BRYANT Administration Sodium Chloride 10 ml 11/12/18 21:57 Sodium Chloride Flush Syringe 10 Ml IV PRN PRN LINE FLUSH Trimethoprim/Sulfamethoxazole 1 each 11/23/18 11:00 11/25/18 10:55 Bactrim Ds PO 11/30/18 23:01 1 each Q12H BRYANT Administration Nutrition/Malnutrition Assess - Dietary Evaluation Nutrition/Malnutrition Findings: Nutrition Notes Start: 11/13/18 14:14 Freq: Status: Active Protocol: Document 11/24/18 14:34 RM (Rec: 11/24/18 14:39 RM [id number]) Nutrition Notes Initial or Follow up Reassessment Current Diagnosis COPD,Diabetes,Hypertension Other Pertinent Diagnosis Pneu, N/V, Ileus, Surgical abdominal wound Current Diet GI soft Labs/Tests Reviewed Pertinent Medications Reviewed Height 5 ft 3 in Weight 45.5 kg [place] Body Weight (kg) 56.36 BMI 17.7 Subjective/Other Information Consulted for DM diet education. Full liquid diet in place earlier today. GI soft ordered later today. Pt and pt granddaughter in room at time or visit. Pt granddaughter stated that pt drank half of his meals. Denied pt vomiting. Declined regular ONS d/t similarity to milk. Pt granddaughter stated that pt does not need DM diet education but took handout. Burn Absent Trauma Absent #1 Nutrition Diagnosis Malnutrition Diagnosis Progress(for reassessment Continues documentation) Is patient on ventilator? No Is Patient Ambulatory and/or Out of Bed No REE-(Heaters-St. Jeor-confined to bed) 1308.804 Kcal/Kg value to use for calculation 38 Approximate Energy Requirements Using 1729 kcal/Kg Calculation Used for Recommendations Kcal/kg Additional Notes Protein Needs: 52-65g (1.2-1. 5g/kg) Fluid Needs: 1 ml/kcal Nutrition Intervention Change Diet Order: Continue current Add Supplement/Snack (indicate name/kcal Ensure Clear Apple 1 daily /protein ) Provides kCal: 240 Provides Protein (gm) 8 Education Handouts Provided Carbohydrate counting for people with diabetes Goal #1 Meet at least 75% of calorie and protein needs via PO and ONS intakes Anticipated Discharge Needs: Unable to determine at this time Follow-Up By: 11/26/18 Additional Comments Follow for PO and ONS intakes
[2018-11-25] MEDS: SODIUM CHLORIDE FLUSH SYRINGE 10 ML IV SCH ×3 (12:19→22:18)
--- NOTE | 2018-11-25 12:58 | Progress Note ---
Assessment and Plan No family available to communicate with pt. resting comfortably. apparently daisy diet Abd still 1+ distention elevated glucose tachypneic 22-24 (RUL pneumonia) persistent ileus stable pneumonia Rx as per pulmonary glucose control as per PCP started on Reglan f/u abd series in am Selected Entries 11/25/18 11/25/18 11/25/18 08:50 09:50 12:00 Temperature 97.8 F Pulse Rate 85 Respiratory 24 22 22 Rate Blood Pressure 130/61 [Right] Laboratory Tests 11/25/18 11/25/18 11:35 12:56 POC Glucose 307 H 323 H Objective Vital Signs - 12hr 11/25/18 11/25/18 11/25/18 05:22 08:00 08:42 Temperature 98.4 F 97.9 F Pulse Rate 82 77 Pulse Rate [ 78 Anterior Bilateral Throughout] Pulse Rate [ 88 Anterior] Respiratory 20 20 Rate Respiratory 18 Rate [Anterior Bilateral Throughout] Respiratory 18 Rate [Anterior] Blood Pressure 130/78 Blood Pressure 141/72 [Right] O2 Sat by Pulse 96 98 Oximetry 11/25/18 11/25/18 11/25/18 08:50 09:29 09:50 Temperature Pulse Rate Pulse Rate [ Anterior Bilateral Throughout] Pulse Rate [ Anterior] Respiratory 24 22 Rate Respiratory Rate [Anterior Bilateral Throughout] Respiratory Rate [Anterior] Blood Pressure Blood Pressure [Right] O2 Sat by Pulse 97 Oximetry 11/25/18 12:00 Temperature 97.8 F Pulse Rate 85 Pulse Rate [ Anterior Bilateral Throughout] Pulse Rate [ Anterior] Respiratory 22 Rate Respiratory Rate [Anterior Bilateral Throughout] Respiratory Rate [Anterior] Blood Pressure Blood Pressure 130/61 [Right] O2 Sat by Pulse 95 Oximetry - Labs 11/25/18 05:45 11/25/18 05:45 Diabetes panel 11/25/18 Range/Units 05:45 Sodium 140 (137-145) mmol/L Potassium 4.1 (3.6-5.0) mmol/L Chloride 101.6 (98-107) mmol/L Carbon Dioxide 31 H (22-30) mmol/L BUN 5 L (9-20) mg/dL Creatinine 0.8 (0.8-1.5) mg/dL Glucose 205 H (75-100) mg/dL Calcium 8.5 (8.4-10.2) mg/dL Calcium panel 11/25/18 Range/Units 05:45 Calcium 8.5 (8.4-10.2) mg/dL Pituitary panel 11/25/18 Range/Units 05:45 Sodium 140 (137-145) mmol/L Potassium 4.1 (3.6-5.0) mmol/L Chloride 101.6 (98-107) mmol/L Carbon Dioxide 31 H (22-30) mmol/L BUN 5 L (9-20) mg/dL Creatinine 0.8 (0.8-1.5) mg/dL Glucose 205 H (75-100) mg/dL Calcium 8.5 (8.4-10.2) mg/dL Adrenal panel 11/25/18 Range/Units 05:45 Sodium 140 (137-145) mmol/L Potassium 4.1 (3.6-5.0) mmol/L Chloride 101.6 (98-107) mmol/L Carbon Dioxide 31 H (22-30) mmol/L BUN 5 L (9-20) mg/dL Creatinine 0.8 (0.8-1.5) mg/dL Glucose 205 H (75-100) mg/dL Calcium 8.5 (8.4-10.2) mg/dL
--- NOTE | 2018-11-25 13:56 | Progress Note ---
Assessment and Plan Patient awake. Resting on 2L O2 NC. No complaint of chest pain or SOB or cough. O2 saturation 95% on 2L O2. Patient afebrile, no leukocytosis. Patient undergone laparotomy for incarcerated inguinal hernia. - Patient Problems (1) Right upper lobe pulmonary infiltrate Current Visit: Yes Status: Acute Plan to address problem: Patient afebrile, no leukocytosis. Patient is on Bactrim. (2) Inguinal hernia Current Visit: Yes Status: Acute Plan to address problem: Patient undergone laparotomy and repair of incarcerated R inguinal hernia. Subjective Date of service: 11/25/18 Principal diagnosis: Ch hypoxemic resp failure; SBO; RUL bronchiectasis; Adult FTT; COPD Interval history: Patient awake. Resting on 2L O2 NC. No complaint of chest pain or SOB or cough. O2 saturation 95% on 2L O2. Patient afebrile, no leukocytosis. Patient undergone laparotomy for incarcerated inguinal hernia. Objective Vital Signs - 12hr 11/25/18 11/25/18 11/25/18 05:22 08:00 08:42 Temperature 98.4 F 97.9 F Pulse Rate 82 77 Pulse Rate [ 78 Anterior Bilateral Throughout] Pulse Rate [ 88 Anterior] Respiratory 20 20 Rate Respiratory 18 Rate [Anterior Bilateral Throughout] Respiratory 18 Rate [Anterior] Blood Pressure 130/78 Blood Pressure 141/72 [Right] O2 Sat by Pulse 96 98 Oximetry 11/25/18 11/25/18 11/25/18 08:50 09:29 09:50 Temperature Pulse Rate Pulse Rate [ Anterior Bilateral Throughout] Pulse Rate [ Anterior] Respiratory 24 22 Rate Respiratory Rate [Anterior Bilateral Throughout] Respiratory Rate [Anterior] Blood Pressure Blood Pressure [Right] O2 Sat by Pulse 97 Oximetry 11/25/18 12:00 Temperature 97.8 F Pulse Rate 85 Pulse Rate [ Anterior Bilateral Throughout] Pulse Rate [ Anterior] Respiratory 22 Rate Respiratory Rate [Anterior Bilateral Throughout] Respiratory Rate [Anterior] Blood Pressure Blood Pressure 130/61 [Right] O2 Sat by Pulse 95 Oximetry Constitutional: no acute distress, alert, other (elderly and chronically ill looking male, normocephalic and atraumatic) Eyes: non-icteric ENT: oropharynx moist Neck: supple, no lymphadenopathy, no JVD Effort: mildly labored Ascultation: Bilateral: diminished breath sounds, rhonchi Percussion: Bilateral: not dull Cardiovascular: regular rate and rhythm Gastrointestinal: normoactive bowel sounds, hypoactive bowel sounds, soft, non- tender, other (midline abdominal sutures) Integumentary: other (midline abdominal sutures) Extremities: no cyanosis, no edema, pink and warm, pulses normal Neurologic: non-focal exam (grossly), CN II-XII normal, motor strength normal and Psychiatric: mood appropriate, affect normal CBC and BMP: 11/25/18 05:45 11/25/18 05:45 Abnormal lab findings: Abnormal Labs 11/12/18 11/12/18 11/12/18 16:07 16:07 21:29 WBC RBC 6.29 H Hgb Hct MCV 69 L MCH 23 L MCHC RDW 15.4 H Lymph % (Auto) 9.7 L [place] % (Auto) 14.0 H Lymph # 0.8 L [place] # 1.2 H Seg Neutrophils % 76.1 H Seg Neuts % (Manual) Lymphocytes % (Manual) Monocytes % (Manual) Seg Neutrophils # Lymphocytes # (Manual) Sodium 135 L Potassium Chloride 91.3 L Carbon Dioxide BUN 31 H Creatinine Glucose 228 H POC Glucose Lactic Acid 3.10 H* Calcium Total Protein Albumin Lipase 11 L Urine pH 11/12/18 11/13/18 11/13/18 21:30 04:51 04:51 WBC RBC 5.68 H Hgb Hct MCV 68 L MCH 22 L MCHC RDW Lymph % (Auto) [place] % (Auto) Lymph # [place] # Seg Neutrophils % Seg Neuts % (Manual) Lymphocytes % (Manual) Monocytes % (Manual) Seg Neutrophils # Lymphocytes # (Manual) Sodium 136 L Potassium Chloride 97.5 L Carbon Dioxide BUN 27 H Creatinine Glucose 164 H POC Glucose 211 H Lactic Acid Calcium Total Protein Albumin Lipase Urine pH 11/13/18 11/13/18 11/13/18 09:09 09:31 13:10 WBC RBC Hgb Hct MCV MCH MCHC RDW Lymph % (Auto) [place] % (Auto) Lymph # [place] # Seg Neutrophils % Seg Neuts % (Manual) Lymphocytes % (Manual) Monocytes % (Manual) Seg Neutrophils # Lymphocytes # (Manual) Sodium Potassium Chloride Carbon Dioxide BUN Creatinine Glucose POC Glucose 169 H 224 H Lactic Acid 2.10 H* Calcium Total Protein Albumin Lipase Urine pH 11/13/18 11/13/18 11/14/18 17:34 21:13 00:01 WBC RBC Hgb Hct MCV MCH MCHC RDW Lymph % (Auto) [place] % (Auto) Lymph # [place] # Seg Neutrophils % Seg Neuts % (Manual) Lymphocytes % (Manual) Monocytes % (Manual) Seg Neutrophils # Lymphocytes # (Manual) Sodium Potassium Chloride Carbon Dioxide BUN Creatinine Glucose POC Glucose 217 H 166 H 180 H Lactic Acid Calcium Total Protein Albumin Lipase Urine pH 11/14/18 11/14/18 11/14/18 05:15 05:15 13:10 WBC RBC 6.10 H Hgb Hct MCV 70 L MCH 22 L MCHC RDW Lymph % (Auto) 2.2 L [place] % (Auto) 9.5 H Lymph # 0.2 L [place] # 0.9 H Seg Neutrophils % 88.2 H Seg Neuts % (Manual) Lymphocytes % (Manual) Monocytes % (Manual) Seg Neutrophils # 8.0 H Lymphocytes # (Manual) Sodium Potassium Chloride Carbon Dioxide BUN Creatinine Glucose 263 H POC Glucose 292 H Lactic Acid Calcium 8.0 L Total Protein 5.9 L D Albumin 3.1 L Lipase Urine pH 11/14/18 11/15/18 11/15/18 16:14 08:38 11:23 WBC RBC Hgb Hct MCV MCH MCHC RDW Lymph % (Auto) [place] % (Auto) Lymph # [place] # Seg Neutrophils % Seg Neuts % (Manual) Lymphocytes % (Manual) Monocytes % (Manual) Seg Neutrophils # Lymphocytes # (Manual) Sodium 136 L Potassium 3.4 L D Chloride Carbon Dioxide BUN Creatinine 0.7 L Glucose 212 H POC Glucose 245 H 226 H Lactic Acid Calcium 8.1 L Total Protein Albumin Lipase Urine pH 11/15/18 11/15/18 11/16/18 17:53 22:13 06:20 WBC RBC Hgb Hct MCV MCH MCHC RDW Lymph % (Auto) [place] % (Auto) Lymph # [place] # Seg Neutrophils % Seg Neuts % (Manual) Lymphocytes % (Manual) Monocytes % (Manual) Seg Neutrophils # Lymphocytes # (Manual) Sodium 136 L Potassium 3.4 L Chloride 96.6 L Carbon Dioxide BUN 8 L Creatinine 0.6 L Glucose 209 H POC Glucose 180 H 161 H Lactic Acid Calcium 8.1 L Total Protein Albumin Lipase Urine pH 11/16/18 11/16/18 11/16/18 08:09 11:38 16:09 WBC RBC Hgb Hct MCV MCH MCHC RDW Lymph % (Auto) [place] % (Auto) Lymph # [place] # Seg Neutrophils % Seg Neuts % (Manual) Lymphocytes % (Manual) Monocytes % (Manual) Seg Neutrophils # Lymphocytes # (Manual) Sodium Potassium Chloride Carbon Dioxide BUN Creatinine Glucose POC Glucose 217 H 189 H 106 H Lactic Acid Calcium Total Protein Albumin Lipase Urine pH 11/16/18 11/17/18 11/17/18 21:58 06:17 06:17 WBC RBC 5.32 H Hgb Hct MCV 68 L MCH 23 L MCHC RDW Lymph % (Auto) [place] % (Auto) Lymph # [place] # Seg Neutrophils % Seg Neuts % (Manual) 74.0 H Lymphocytes % (Manual) 12.0 L Monocytes % (Manual) 11.0 H Seg Neutrophils # Lymphocytes # (Manual) 0.7 L Sodium 136 L Potassium Chloride 96.3 L Carbon Dioxide BUN Creatinine 0.6 L Glucose 202 H POC Glucose 172 H Lactic Acid Calcium 8.0 L Total Protein Albumin Lipase Urine pH 11/17/18 11/17/18 11/17/18 07:14 11:34 16:10 WBC RBC Hgb Hct MCV MCH MCHC RDW Lymph % (Auto) [place] % (Auto) Lymph # [place] # Seg Neutrophils % Seg Neuts % (Manual) Lymphocytes % (Manual) Monocytes % (Manual) Seg Neutrophils # Lymphocytes # (Manual) Sodium Potassium Chloride Carbon Dioxide BUN Creatinine Glucose POC Glucose 189 H 159 H 157 H Lactic Acid Calcium Total Protein Albumin Lipase Urine pH 11/17/18 11/18/18 11/18/18 21:40 04:25 07:48 WBC RBC Hgb Hct MCV MCH MCHC RDW Lymph % (Auto) [place] % (Auto) Lymph # [place] # Seg Neutrophils % Seg Neuts % (Manual) Lymphocytes % (Manual) Monocytes % (Manual) Seg Neutrophils # Lymphocytes # (Manual) Sodium 135 L Potassium Chloride 95.8 L Carbon Dioxide BUN 8 L Creatinine 0.6 L Glucose 204 H POC Glucose 120 H 212 H Lactic Acid Calcium 8.0 L Total Protein Albumin Lipase Urine pH 11/18/18 11/18/18 11/18/18 11:41 16:16 21:16 WBC RBC Hgb Hct MCV MCH MCHC RDW Lymph % (Auto) [place] % (Auto) Lymph # [place] # Seg Neutrophils % Seg Neuts % (Manual) Lymphocytes % (Manual) Monocytes % (Manual) Seg Neutrophils # Lymphocytes # (Manual) Sodium Potassium Chloride Carbon Dioxide BUN Creatinine Glucose POC Glucose 129 H 152 H 112 H Lactic Acid Calcium Total Protein Albumin Lipase Urine pH 11/19/18 11/19/18 11/19/18 06:14 08:07 11:55 WBC 13.3 H RBC 5.44 H Hgb 11.7 L Hct MCV 68 L MCH 22 L MCHC 31 L RDW Lymph % (Auto) 9.2 L [place] % (Auto) 11.6 H Lymph # [place] # 1.5 H Seg Neutrophils % 77.1 H Seg Neuts % (Manual) Lymphocytes % (Manual) Monocytes % (Manual) Seg Neutrophils # 10.3 H Lymphocytes # (Manual) Sodium Potassium Chloride Carbon Dioxide BUN Creatinine Glucose POC Glucose 225 H 243 H Lactic Acid Calcium Total Protein Albumin Lipase Urine pH 11/19/18 11/19/18 11/20/18 16:44 20:51 04:19 WBC 14.5 H RBC 5.04 H Hgb 11.2 L Hct 34.1 L MCV 68 L MCH 22 L MCHC RDW Lymph % (Auto) 8.1 L [place] % (Auto) 9.5 H Lymph # [place] # 1.4 H Seg Neutrophils % 81.0 H Seg Neuts % (Manual) Lymphocytes % (Manual) Monocytes % (Manual) Seg Neutrophils # 11.8 H Lymphocytes # (Manual) Sodium Potassium Chloride Carbon Dioxide BUN Creatinine Glucose POC Glucose 195 H 179 H Lactic Acid Calcium Total Protein Albumin Lipase Urine pH 11/20/18 11/20/18 11/20/18 04:19 07:55 12:05 WBC RBC Hgb Hct MCV MCH MCHC RDW Lymph % (Auto) [place] % (Auto) Lymph # [place] # Seg Neutrophils % Seg Neuts % (Manual) Lymphocytes % (Manual) Monocytes % (Manual) Seg Neutrophils # Lymphocytes # (Manual) Sodium Potassium 3.1 L Chloride 97.9 L Carbon Dioxide 33 H BUN 5 L Creatinine 0.6 L Glucose 226 H POC Glucose 218 H 121 H Lactic Acid Calcium 7.9 L Total Protein Albumin Lipase Urine pH 11/20/18 11/20/18 11/21/18 16:59 20:49 06:04 WBC RBC Hgb 11.0 L Hct 34.7 L MCV 69 L MCH 22 L MCHC RDW Lymph % (Auto) [place] % (Auto) 9.5 H Lymph # [place] # 0.9 H Seg Neutrophils % 73.1 H Seg Neuts % (Manual) Lymphocytes % (Manual) Monocytes % (Manual) Seg Neutrophils # Lymphocytes # (Manual) Sodium Potassium Chloride Carbon Dioxide BUN Creatinine Glucose POC Glucose 117 H 118 H Lactic Acid Calcium Total Protein Albumin Lipase Urine pH 11/21/18 11/21/18 11/21/18 06:04 07:51 11:40 WBC RBC Hgb Hct MCV MCH MCHC RDW Lymph % (Auto) [place] % (Auto) Lymph # [place] # Seg Neutrophils % Seg Neuts % (Manual) Lymphocytes % (Manual) Monocytes % (Manual) Seg Neutrophils # Lymphocytes # (Manual) Sodium Potassium 3.3 L Chloride 96.9 L Carbon Dioxide 33 H BUN 8 L Creatinine 0.7 L Glucose 189 H POC Glucose 191 H 221 H Lactic Acid Calcium 8.0 L Total Protein Albumin Lipase Urine pH 11/21/18 11/21/18 11/21/18 16:20 21:07 Unknown WBC RBC Hgb Hct MCV MCH MCHC RDW Lymph % (Auto) [place] % (Auto) Lymph # [place] # Seg Neutrophils % Seg Neuts % (Manual) Lymphocytes % (Manual) Monocytes % (Manual) Seg Neutrophils # Lymphocytes # (Manual) Sodium Potassium Chloride Carbon Dioxide BUN Creatinine Glucose POC Glucose 179 H 253 H Lactic Acid Calcium Total Protein Albumin Lipase Urine pH 8.0 H 11/22/18 11/22/18 11/22/18 06:02 06:02 07:23 WBC RBC 5.57 H Hgb Hct MCV 68 L MCH 22 L MCHC RDW Lymph % (Auto) [place] % (Auto) 9.3 H Lymph # [place] # 1.0 H Seg Neutrophils % 73.4 H Seg Neuts % (Manual) Lymphocytes % (Manual) Monocytes % (Manual) Seg Neutrophils # Lymphocytes # (Manual) Sodium Potassium Chloride 97.7 L Carbon Dioxide 31 H BUN 6 L Creatinine 0.6 L Glucose 161 H POC Glucose 165 H Lactic Acid Calcium Total Protein Albumin Lipase Urine pH 11/22/18 11/22/18 11/22/18 11:25 16:14 21:45 WBC RBC Hgb Hct MCV MCH MCHC RDW Lymph % (Auto) [place] % (Auto) Lymph # [place] # Seg Neutrophils % Seg Neuts % (Manual) Lymphocytes % (Manual) Monocytes % (Manual) Seg Neutrophils # Lymphocytes # (Manual) Sodium Potassium Chloride Carbon Dioxide BUN Creatinine Glucose POC Glucose 267 H 115 H 169 H Lactic Acid Calcium Total Protein Albumin Lipase Urine pH 11/23/18 11/23/18 11/23/18 07:19 10:55 11:22 WBC RBC Hgb Hct MCV MCH MCHC RDW Lymph % (Auto) [place] % (Auto) Lymph # [place] # Seg Neutrophils % Seg Neuts % (Manual) Lymphocytes % (Manual) Monocytes % (Manual) Seg Neutrophils # Lymphocytes # (Manual) Sodium 136 L Potassium Chloride 97.5 L Carbon Dioxide 33 H BUN 5 L Creatinine 0.6 L Glucose 282 H POC Glucose 192 H 313 H Lactic Acid Calcium 8.2 L Total Protein Albumin Lipase Urine pH 11/23/18 11/23/18 11/24/18 16:06 21:55 04:24 WBC RBC Hgb Hct MCV MCH MCHC RDW Lymph % (Auto) [place] % (Auto) Lymph # [place] # Seg Neutrophils % Seg Neuts % (Manual) Lymphocytes % (Manual) Monocytes % (Manual) Seg Neutrophils # Lymphocytes # (Manual) Sodium Potassium Chloride Carbon Dioxide 32 H BUN 5 L Creatinine 0.6 L Glucose 134 H POC Glucose 225 H 260 H Lactic Acid Calcium 8.2 L Total Protein Albumin Lipase Urine pH 11/24/18 11/24/18 11/24/18 07:26 11:16 16:30 WBC RBC Hgb Hct MCV MCH MCHC RDW Lymph % (Auto) [place] % (Auto) Lymph # [place] # Seg Neutrophils % Seg Neuts % (Manual) Lymphocytes % (Manual) Monocytes % (Manual) Seg Neutrophils # Lymphocytes # (Manual) Sodium Potassium Chloride Carbon Dioxide BUN Creatinine Glucose POC Glucose 177 H 308 H 193 H Lactic Acid Calcium Total Protein Albumin Lipase Urine pH 11/24/18 11/25/18 11/25/18 20:57 05:45 05:45 WBC RBC Hgb 11.2 L Hct 34.5 L MCV 69 L MCH 22 L MCHC RDW Lymph % (Auto) [place] % (Auto) 10.1 H Lymph # [place] # Seg Neutrophils % Seg Neuts % (Manual) Lymphocytes % (Manual) Monocytes % (Manual) Seg Neutrophils # Lymphocytes # (Manual) Sodium Potassium Chloride Carbon Dioxide 31 H BUN 5 L Creatinine Glucose 205 H POC Glucose 292 H Lactic Acid Calcium Total Protein Albumin Lipase Urine pH 11/25/18 11/25/18 11/25/18 07:48 11:35 12:56 WBC RBC Hgb Hct MCV MCH MCHC RDW Lymph % (Auto) [place] % (Auto) Lymph # [place] # Seg Neutrophils % Seg Neuts % (Manual) Lymphocytes % (Manual) Monocytes % (Manual) Seg Neutrophils # Lymphocytes # (Manual) Sodium Potassium Chloride Carbon Dioxide BUN Creatinine Glucose POC Glucose 186 H 307 H 323 H Lactic Acid Calcium Total Protein Albumin Lipase Urine pH Allied health notes reviewed: nursing
--- NOTE | 2018-11-25 15:07 | Progress Note ---
Assessment and Plan Cultures: 11/20 SCx - MRSA 11/20 UCx - negative 11/20 BCx - NGTD A/P: Pt is a 77 yo M PMHx COPD on home O2, DM2, HTN who was admitted to the [facility] with nausea, vomiting, and SOB 1. MRSA pneumonia - while sputum culture had few WBC, so this may be a contaminant. Given it was taken as his leukocytosis was worsening, and worse symptoms with sputum production I would complete a course. Can continue vancomycin for now, de-escalate to Bactrim pending improvement. CXR with increasing consolidation. Possibly evolving, CXR findings lag behind clinical picture. If symptoms worsen consider bronch an/or change back to vancomycin. 2. incarcerated hernia - resolved 3. COPD on home O2 4. Penicillin allergy 5. DM2 - Maintain good control for improved immune function 6. HTN Recs: - plan to discharge on Bactrim DS BID. Complete 8 day course from vancomycin initiation. Stop date: 11/30 - monitor renal function while on Bactrim Thank you for the consult, will continue to follow. Indra Horan MD [facility] ([facility]) M: [phone] O: [phone] F: [phone] Subjective Date of service: 11/25/18 Principal diagnosis: Ch hypoxemic resp failure; SBO; RUL bronchiectasis; Adult FTT; COPD Interval history: No new complaints. Now tolerating diet. Persistent ileus, however. Objective - Exam Narrative Exam: Physical Exam: Constitutional: Alert, cooperative. No acute distress Head, Ears, Nose: Normocephalic, atraumatic. External ears, nose normal Eyes: Conjunctivae/corneas clear. No icterus. No ptosis. Neck: Supple, no meningeal signs Oral: dentition fair, no thrush Cardiovascular: S1, S2 normal. Respiratory: Hyper-resonant, no crackles GI: Soft, non-tender; bowel sounds normal. No peritoneal signs. Musculoskeletal: No pedal edema, no cyanosis. Skin: No rash or abscess Hem/Lymphatic: No palpable cervical or supraclavicular nodes. No lymphangitis Psych: Mood ok. Affect normal Neurological: Awake, alert, oriented. No gross abnormality - Constitutional Vitals: Vital Signs Temp Pulse Resp BP Pulse Ox 97.8 F 84 18 130/61 95 11/25/18 12:00 11/25/18 14:40 11/25/18 14:40 11/25/18 12:00 11/25/18 12:00 Temperature -Last 24 Hours Temperature 97.8 F Temperature 97.9 F Temperature 98.4 F Temperature 97.9 F Temperature 97.6 F - Labs CBC & Chem 7: 11/25/18 05:45 11/25/18 05:45 Labs: Abnormal lab results 11/24/18 11/24/18 11/25/18 Range/Units 16:30 20:57 05:45 Hgb 11.2 L (11.8-15.2) gm/dl Hct 34.5 L (35.5-45.6) % MCV 69 L (84-94) fl MCH 22 L (28-32) pg [place] % (Auto) 10.1 H (0.0-7.3) % Carbon Dioxide (22-30) mmol/L BUN (9-20) mg/dL Glucose (75-100) mg/dL POC Glucose 193 H 292 H (70-105) 11/25/18 11/25/18 11/25/18 Range/Units 05:45 07:48 11:35 Hgb (11.8-15.2) gm/dl Hct (35.5-45.6) % MCV (84-94) fl MCH (28-32) pg [place] % (Auto) (0.0-7.3) % Carbon Dioxide 31 H (22-30) mmol/L BUN 5 L (9-20) mg/dL Glucose 205 H (75-100) mg/dL POC Glucose 186 H 307 H (70-105) 11/25/18 Range/Units 12:56 Hgb (11.8-15.2) gm/dl Hct (35.5-45.6) % MCV (84-94) fl MCH (28-32) pg [place] % (Auto) (0.0-7.3) % Carbon Dioxide (22-30) mmol/L BUN (9-20) mg/dL Glucose (75-100) mg/dL POC Glucose 323 H (70-105)
[2018-11-25] MEDS ORDERED: LOVENOX SUB-Q SCH (22:00)
[2018-11-26] MEDS: REGLAN PO SCH ×2 (05:36→15:48)
--- NOTE | 2018-11-26 08:43 | XRay Report ---
ABDOMINAL SERIES WITH CHEST X-RAY HISTORY: Small bowel obstruction, ileus FINDINGS: Compared to 11/24/2018. Single view of the chest demonstrates decreasing right upper lobe inf iltration. The remainder of the lungs are clear although mildly hyperinflated. Normal heart size. Supine and upright views of the abdomen demonstrate a near normal bowel gas pattern. There is decreas ed gas throughout the small and large bowel loops. Normal gas and stool in the colon. No large air-fl uid levels or free air. IMPRESSION: Continued improvement in the postoperative ileus. Near normal intestinal gas pattern. Decreasing right upper lobe infiltrate. Signer Name: Pancho Crow Jr, MD Signed: 11/26/2018 8:39 AM Workstation Name: [id number]
[2018-11-26] MEDS: HumaLOG SUB-Q SCH ×2 (08:55→12:02)
--- NOTE | 2018-11-26 09:03 | Progress Note ---
Assessment and Plan Pt continues to improve and feeling better. breathing easier. daisy solid diet. + BM Abd - flatter and softer. non tender Abd series - minimal ileus pattern (much improved) surgically stable july d/c from surgical perspective rto this Saturday Selected Entries 11/26/18 07:32 Temperature 97 F L Respiratory 20 Rate Blood Pressure 130/75 [Right] Laboratory Tests 11/25/18 05:45 Glucose 205 H Objective Vital Signs - 12hr 11/25/18 11/26/18 11/26/18 23:49 04:02 07:32 Temperature 97.5 F L 97.6 F 97 F L Pulse Rate 79 86 97 H Respiratory 16 17 20 Rate Blood Pressure 123/62 122/67 Blood Pressure 130/75 [Right] O2 Sat by Pulse 95 97 100 Oximetry - Labs 11/25/18 05:45 11/25/18 05:45
[2018-11-26] MEDS: PULMICORT IH SCH (09:46)
[2018-11-26] MEDS: BROVANA NEBU IH SCH (09:46)
[2018-11-26] MEDS: DUONEB *Not for PRN Use IH SCH ×2 (09:46→14:30)
[2018-11-26] MEDS: PROTONIX PO SCH (11:04)
[2018-11-26] MEDS: BACTRIM DS PO SCH (11:04)
[2018-11-26] MEDS: SODIUM CHLORIDE FLUSH SYRINGE 10 ML IV SCH (11:05)
--- NOTE | 2018-11-26 12:31 | Discharge Summary ---
Providers - Providers Date of Admission: 11/12/18 21:36 Date of discharge: 11/26/18 Attending physician: YING VERNON 11/13/18 07:14 Consult to Physician [CONS] Routine Comment: Consulting Provider: MYRNA PUTNAM Physician Instructions: Reason For Exam: SBO 11/13/18 12:16 Consult to Physician [CONS] Routine Comment: Consulting Provider: ARIELLE CRUZ Physician Instructions: Reason For Exam: incarcerated inguinal hernea 11/17/18 19:03 Physical Therapy Evaluation and Treat [CONS] Routine Comment: Reason For Exam: EVALUATION 11/17/18 19:08 Physical Therapy Evaluation and Treat [CONS] Routine Comment: Reason For Exam: OOB. ambulate down halls with assistance as daisy 11/21/18 07:58 Consult to Physician [CONS] Routine Comment: Consulting Provider: TE HART Physician Instructions: Reason For Exam: PNA 11/22/18 10:34 Consult to Physician [CONS] Routine Comment: Consulting Provider: DAVIS ALMANZAR Physician Instructions: Reason For Exam: MRSA PNA 11/23/18 12:33 Consult to Dietitian/Nutrition [CONS] Routine Physician Instructions: Reason For Exam: Reason for Consult: Diet education Primary care physician: NAIMA GUEVARA Hospitalization Condition: Stable Hospital course: Patient is a 77-year-old Slovak speaking man with a history of hypertension, DM type 2 and COPD who presented to [facility] ED with N/V and decreased appetite. He was recently treated for pneumonia with Levaquin. Agus Maher was the Animal Control Licensing Worker at bedside. * CT abdomen/pelvis w contrast: 1. Incarcerated right inguinal hernia resulting in high-grade distal small bowel obstruction. 2. Noninflamed colonic diverticulosis. 3. Calcified gallstones. * ABD/pCXR series IMPRESSION: Continued improvement in the postoperative ileus. Near normal intestinal gas pattern. Decreasing right upper lobe infiltrate. Discharge Diagnoses: Incarcerated right hernia with high-grade small bowel obstruction, s/p bowel resection on 11/13/18 and postop Ileus - improving Right Upper lobe Aspiration MRSA pneumonia, POA: Bactrim until 11/30/18 Sepsis MRSA RPNA , poa as evident by HR 95, RR 24 with pna Hypokalemia, replete, and monitor BMP NG tube in place, Dark colored NG suction unlikely GI bleed - resolved Hypertension, stable Diabetes mellitus type 2- check fingersticks, initiate insulin sliding scale COPD, stable placed on nebs as needed Severe malnutrition, poa - dietary consult when able to take po Lactic acidosis, due to bowel obstruction, trended down Disposition: DC-01 TO HOME OR SELFCARE Time spent for discharge: 36 minutes Core Measure Documentation - Palliative Care Palliative Care/ Comfort Measures: Not Applicable - Core Measures Any of the following diagnoses?: none - VTE Discharge Requirements Deep Vein Thrombosis/Pulmonary Embolism Present on Admission: No Has pt received <5 days of overlap therapy or INR<2.0: No Anticoagulant overlap therapy prescribed at discharge: No Contraindication No Overlap Therapy order at DC: Not Indicated Exam - Physical Exam Narrative exam: Gen: thin cachetic, BMI 17.8, NAD, Awake, Alert, Orientated x 1 HEENT: NCAT, EOMI, PERRL, OP Clear Neck: supple, no adenopathy, no thyromegaly, no JVD CVS/Heart: RRR, normal S1S2, pulses present bilaterally Chest/Lungs: CTA B, Symmetrical chest expansion, good air entry bilaterally GI/Abdomen: soft, dressings in place, +bowel sounds, no guarding or rebound /Bladder: no suprapubic tenderness, no CVA or paraspinal tenderness Extermity/Skin: no c/c/e, no obvious rash MSK: FROM x 4 Neuro: CN 2-12 grossly intact, no new focal deficits Psych: calm - Constitutional Vitals: Temp Pulse Resp BP Pulse Ox 97 F L 78 18 130/75 95 11/26/18 07:32 11/26/18 10:04 11/26/18 10:04 11/26/18 07:32 11/26/18 09:49 Plan Activity: other (no strenous activity until cleared by Surgeon) Diet: other (Soft diet until Surgeon changes) Wound: per your surgeon's advice Follow up with: NAIMA GUEVARA MD [Primary Care Provider] - 3-5 Days ARIELLE CRUZ MD [Staff Physician] - 12/01/18 Prescriptions: Sulfamethoxazole/Trimethoprim [Bactrim DS TAB] 1 each PO Q12H #10 tablet ALBUTEROL Inhaler (OR & NICU) [ProAir HFA Inhaler] 2 puff IH Q4H PRN #1 device PRN Reason: Shortness Of Breath Pantoprazole [Protonix TAB] 40 mg PO QDAY #7 tablet
[2018-11-26 13:19] VITALS: BP 124/68
--- NOTE | 2018-11-26 15:07 | Progress Note ---
Assessment and Plan Cultures: 11/20 SCx - MRSA 11/20 UCx - negative 11/20 BCx - NGTD A/P: Pt is a 77 yo M PMHx COPD on home O2, DM2, HTN who [facility], vomiting, and SOB 1. MRSA pneumonia - while sputum culture had few WBC, so this may be a contaminant. Given it was taken as his leukocytosis was worsening, and worse symptoms with sputum production I would complete a course. Can continue vancomycin for now, de-escalate to Bactrim pending improvement. CXR with increasing consolidation. Possibly evolving, CXR findings lag behind clinical picture. If symptoms worsen consider bronch an/or change back to vancomycin. 2. incarcerated hernia - resolved 3. COPD on home O2 4. Penicillin allergy 5. DM2 - Maintain good control for improved immune function 6. HTN Recs: - plan to discharge on Bactrim DS BID. Complete 8 day course from vancomycin initiation. Stop date: 11/30 - monitor renal function while on Bactrim Thank you for the consult, will continue to follow. Indra Horan MD [facility] ([facility]) M: [phone] O: [phone] F: [phone] Subjective Date of service: 11/26/18 Principal diagnosis: Ch hypoxemic resp failure; SBO; RUL bronchiectasis; Adult FTT; COPD Interval history: No new complaints. Now tolerating diet. Improving ileus, however. Objective - Exam Narrative Exam: Physical Exam: Constitutional: Alert, cooperative. No acute distress Head, Ears, Nose: Normocephalic, atraumatic. External ears, nose normal Eyes: Conjunctivae/corneas clear. No icterus. No ptosis. Neck: Supple, no meningeal signs Oral: dentition fair, no thrush Cardiovascular: S1, S2 normal. Respiratory: Hyper-resonant, no crackles GI: Soft, non-tender; bowel sounds normal. No peritoneal signs. Musculoskeletal: No pedal edema, no cyanosis. Skin: No rash or abscess Hem/Lymphatic: No palpable cervical or supraclavicular nodes. No lymphangitis Psych: Mood ok. Affect normal Neurological: Awake, alert, oriented. No gross abnormality - Constitutional Vitals: Vital Signs Temp Pulse Resp BP Pulse Ox 97.4 F L 86 18 124/68 97 11/26/18 12:00 11/26/18 14:40 11/26/18 14:40 11/26/18 12:00 11/26/18 12:00 Temperature -Last 24 Hours Temperature 97.4 F Temperature 97 F Temperature 97.6 F Temperature 97.5 F Temperature 97.4 F Temperature 97.4 F - Labs CBC & Chem 7: 11/25/18 05:45 11/25/18 05:45 Labs: Abnormal lab results 11/25/18 11/25/18 11/26/18 Range/Units 16:36 21:03 07:13 POC Glucose 217 H 219 H 157 H (70-105) 11/26/18 11/26/18 Range/Units 09:01 11:41 POC Glucose 163 H 236 H (70-105)
== END 2018-11-26 16:33 | disposition home health service (06) | DRG 853 ==
LOC: ED 15:06 → 2B-ACE 21:36 → 3A 11-13 06:18 → CC1 11-14 00:26 → 3B-SURG 11-14 18:16
PROVIDERS: ADMIT Internal Medicine; ATTEND Internal Medicine
PROC: 0YQ50ZZ Repair Right Inguinal Region, Open Approach (ICD-10-PCS; principal; 2018-11-13)
PROC: 0D9670Z Drainage of Stomach with Drainage Device, Via Natural or Artificial Opening (ICD-10-PCS; 2018-11-14)
DX: A41.02 Sepsis due to Methicillin resistant Staphylococcus aureus (principal); J15.212 Pneumonia due to Methicillin resistant Staphylococcus aureus; E43 Unspecified severe protein-calorie malnutrition; E87.2 Acidosis; K40.30 Unilateral inguinal hernia, with obstruction, without gangrene, not specified as recurrent; Z68.1 Body mass index [BMI] 19.9 or less, adult; K56.7 Ileus, unspecified; J96.11 Chronic respiratory failure with hypoxia; J47.1 Bronchiectasis with (acute) exacerbation; J47.0 Bronchiectasis with acute lower respiratory infection; E87.6 Hypokalemia; R62.7 Adult failure to thrive; N18.2 Chronic kidney disease, stage 2 (mild); E11.22 Type 2 diabetes mellitus with diabetic chronic kidney disease; I12.9 Hypertensive chronic kidney disease with stage 1 through stage 4 chronic kidney disease, or unspecified chronic kidney disease; Z87.891 Personal history of nicotine dependence; Z99.81 Dependence on supplemental oxygen; Z79.899 Other long term (current) drug therapy; Z79.51 Long term (current) use of inhaled steroids; Z88.0 Allergy status to penicillin; Z79.84 Long term (current) use of oral hypoglycemic drugs; Z82.49 Family history of ischemic heart disease and other diseases of the circulatory system; Z83.3 Family history of diabetes mellitus; Z87.01 Personal history of pneumonia (recurrent)
CPT/HCPCS: 36415; 71046; 71260; 74018; 74022; 74176; 80048; 80053; 81001; 82140; 82962; 83690; 85007; 85014; 85018; 85025; 87040; 87070; 87076; 87086; 87186; 87205; 94640; 94760; G0378; A9270-GY; C9113; J0456; J0696; J1100; J1170; J1650; J1815; J1956; J2060; J2270; J2405; J2704; J2710; J3010; J3370; J3480; J7030; J7042; J7050; J7120